=== PATIENT | male | born 1985 | race Caucasian/White ===

== ENCOUNTER → 2016-08-02 | Outpatient (REF) ==
[~2016-08-02] MED LIST: COLA100C3 PO; PERC5TAB6 PO
== END ==
LOC: M LAB 14:42
PROVIDERS: ATTEND Nurse Practitioner Adult Health
DX: Z02.1 Encounter for pre-employment examination (principal)

== ENCOUNTER 2017-12-21 08:14 | Emergency (ER) | payer OTHER | END 2017-12-21 09:10 | disposition home or self-care (01) | LOC: M ED 08:14 | DX: S63.613A Unspecified sprain of left middle finger, initial encounter (principal); W22.8XXA Striking against or struck by other objects, initial encounter; Y92.018 Other place in single-family (private) house as the place of occurrence of the external cause; Z79.899 Other long term (current) drug therapy; Z88.6 Allergy status to analgesic agent; Z88.8 Allergy status to other drugs, medicaments and biological substances; Z91.048 Other nonmedicinal substance allergy status | CPT/HCPCS: 73140 ==

== ENCOUNTER 2018-01-04 17:37 | Emergency (ER) | payer OTHER ==
[2018-01-04] MEDS ORDERED: NS 1,000 ML IV (18:15)
[2018-01-04] MEDS ORDERED: ACETAMINOPHEN 325 MG TAB PO (18:15)
[2018-01-04] MEDS ORDERED: PIPERACILLIN/TAZOBACTAM SOD 3.375 GM in D5W MINI-BAG PLUS 50 ML IV (18:30)
[2018-01-04 18:42] LABS: BASO % 0.5 % (0.0-1.0); EOS # 0.1 10^3/uL (0.0-0.50); EOS % 1.7 % (0.0-3.0); HEMOGLOBIN 13.6 g/dl (13.5-17.5); IMMATURE GRANULOCYTE % 1.2 % (0-3.0); LYMPH # 1.6 10^3/uL (1.5-4.5); LYMPH % 27.2 % (24.0-44.0); MEAN CORPUSCULAR HEMOGLOBIN 29.2 pg (27.0-33.0); MEAN CORPUSCULAR VOLUME 85.8 fl (80.0-96.0); MONO # 0.7 10^3/uL (0.0-0.8); MONO % 12.6 % (0.0-5.0); NEUTROPHILS # 3.3 10^3/uL (1.8-7.7); NEUTROPHILS % 56.8 % (36.0-66.0); PLATELET COUNT, AUTOMATED 291 10^3/uL (150-450); RED BLOOD COUNT 4.66 10^6/uL (4.30-6.10); RED CELL DISTRIBUTION WIDTH 12.3 % (11.5-14.5); WHITE BLOOD COUNT 5.8 10^3/uL (4.0-10.0)
[2018-01-04] MEDS ORDERED: ZOSYN 3.375 GM VIAL (J2543) As Ordered (18:52)
[2018-01-04] MEDS: DILUENT IV (19:06)
[2018-01-04] MEDS: NS IV (19:06)
[2018-01-04] MEDS: MORPHINE 4 MG/ML 1ML VIAL/SYRINGE (J2270) IV ×2 (19:07→20:38)
[2018-01-04] MEDS: PIPERACILLIN/TAZOBACTAM SOD 3.375 GM in D5W MINI-BAG PLUS 50 ML IV (19:10)
[2018-01-04 19:11] LABS: ALBUMIN 3.3 GM/DL (3.2-5.2); ALBUMIN/GLOBULIN RATIO 0.92 (1.00-1.93); ALKALINE PHOSPHATASE 56 U/L (45-117); ALT/SGPT 53 U/L (12-78); AMYLASE 31 U/L (25-115); ANION GAP 9 MEQ/L (8-16); AST/SGOT 22 U/L (7-37); BILIRUBIN,DIRECT 0.3 MG/DL (0.0-0.2); BLOOD UREA NITROGEN 15 MG/DL (7-18); C REACTIVE PROTEIN QUANTITATIV 6.58 MG/DL (0.00-0.30); CALCIUM LEVEL 8.3 MG/DL (8.5-10.1); CARBON DIOXIDE LEVEL 23 MEQ/L (21-32); CHLORIDE LEVEL 108 MEQ/L (98-107); CREATININE FOR GFR 1.03 MG/DL (0.70-1.30); GLOMERULAR FILTRATION RATE > 60.0 (>60); GLUCOSE, FASTING 90 MG/DL (70-100); POTASSIUM SERUM 3.7 MEQ/L (3.5-5.1); SODIUM LEVEL 140 MEQ/L (136-145); TOTAL PROTEIN 6.9 GM/DL (6.4-8.2)
[2018-01-04 19:11] LABS: LACTIC ACID SEPSIS PROTOCOL 1.5 MMOL/L (0.4-2.0)
[2018-01-04 19:12] LABS: KETONE, URINE AUTO RFX NEGATIVE (NEGATIVE); LEUKOCYTE ESTERASE UR AUTO RFX NEGATIVE (NEGATIVE); MUCUS, URINE RFX SMALL (NEGATIVE); NITRITE, URINE AUTO RFX NEGATIVE (NEGATIVE); RBC, URINE AUTO RFX 1 /HPF (0-3); SPECIFIC GRAVITY UR AUTO RFX 1.025 (1.002-1.035); SQUAM EPITHELIAL CELL UR AURFX 0 /HPF (0-6); WBC, URINE AUTO RFX 1 /HPF (0-3)
[2018-01-04 19:23] LABS: PARTIAL THROMBOPLASTIN TIME 31.6 SECONDS (25.4-37.6)
[2018-01-04] MEDS ORDERED: ISOVUE-370 76% 100ML VIAL (Q9967) As Ordered (19:31)
[2018-01-04 19:34] LABS: INR 1.03; PROTHROMBIN TIME 13.6 SECONDS (12.1-14.4)
[2018-01-04 19:45] LABS: CONTROL LINE MONO INT CTR LINE PRESENT; MONO SCRN NEGATIVE (NEGATIVE)
[2018-01-04 20:04] LABS: ERYTHROCYTE SEDIMENTATION RATE 52 mm/hr (0-15)
[2018-01-04 21:28] LABS: INFLUENZA A AMPLIFICATION NEGATIVE (NEGATIVE); INFLUENZA B AMPLIFICATION NEGATIVE (NEGATIVE)
== END 2018-01-04 22:21 | disposition home or self-care (01) ==
LOC: M ED 17:37
DX: B34.9 Viral infection, unspecified (principal); R50.9 Fever, unspecified
CPT/HCPCS: J2270

== ENCOUNTER → 2018-11-22 | Outpatient (CLI) | payer OTHER ==
[~2018-11-22] MED LIST changes: +3ML25MIS IM; +ADDE30CA3 PO; +ALLO100T PO; +BACL10TA2 PO; +BELS1TAB4 PO; +CLEO150C PO; -COLA100C3 PO; +COLA100C5 PO; +EPIN0.3I11; +KETO30IN5 IM; +LOPR1TAB7 PO; +OXYC10TA3 PO; +OXYC1SOL3 PO; +OXYC20TA40 PO; +PERC5TAB12 PO; -PERC5TAB6 PO; +ROSU40TA4 PO; +TOPA50TA8 PO; +VITA100054 PO; +ZANA4TAB PO; +ZOFR4TAB16 PO; +ZOMI5TAB12 PO
--- NOTE | 2018-11-22 20:37 | ECGEPIP ---
[facility] Test Date: 2018-11-22 Pat Name: CHUNG MAYERS Department: Room: - Gender: Male Slagger: DELISA : 1985 Requested By: Opal MORIN Order Number: [id number] Reading MD: Harry De Souza Measurements Intervals Mellen Rate: 62 P: 35 AL: 157 QRS: 34 QRSD: 94 T: 55 QT: 394 QTc: 402 Interpretive Statements SINUS RHYTHM WITH OCCASIONAL VENTRICULAR PREMATURE COMPLEXES No prior ECG available for comparison. Electronically Signed on 11-22-2018 20:37:03 EDT by Harry De Souza
== END ==
LOC: M EKG 11:06
PROVIDERS: ATTEND Nurse Practitioner Family
DX: I45.81 Long QT syndrome (principal)

== ENCOUNTER 2019-01-29 14:27 | Emergency (ER) | payer OTHER ==
[~2019-01-29] VITALS: Ht 188 cm; Wt 121.0 kg
[2019-01-29] MEDS ORDERED: LOPE1CAP5 (14:39)
[2019-01-29] MEDS ORDERED: ALLE25CA (14:39)
[2019-01-29] MEDS ORDERED: MYDA1CAP (14:39)
[2019-01-29] MEDS ORDERED: MORP30TASA (14:39)
[2019-01-29] MEDS ORDERED: LORA-674 (14:39)
[2019-01-29] MEDS ORDERED: DEXTROAMP-AMPHETAMIN (14:56)
[2019-01-29] MEDS ORDERED: MYDA1CAP PO (14:56)
[2019-01-29] MEDS ORDERED: COLC1TAB13 (14:56)
[2019-01-29] MEDS ORDERED: DEXI60CA2 (14:56)
[2019-01-29] MEDS ORDERED: CARV12.5 (14:56)
[2019-01-29 15:23] LABS: BASO % 0.7 % (0.0-1.0); EOS # 0.2 10^3/uL (0.0-0.5); EOS % 3.7 % (0.0-3.0); HEMATOCRIT 47.4 % (42.0-52.0); HEMOGLOBIN 16.3 g/dl (13.5-17.5); LYMPH # 1.7 10^3/uL (1.5-5.0); LYMPH % 40.1 % (24.0-44.0); MEAN CORPUSCULAR HGB CONC 34.4 g/dl (32.0-36.5); MEAN CORPUSCULAR VOLUME 84.3 fl (80.0-96.0); MONO # 0.4 10^3/uL (0.0-0.8); NEUTROPHILS % 46.3 % (36.0-66.0); PLATELET COUNT, AUTOMATED 264 10^3/uL (150-450); RED BLOOD COUNT 5.62 10^6/uL (4.30-6.10); WHITE BLOOD COUNT 4.3 10^3/uL (4.0-10.0)
--- NOTE | 2019-01-29 15:38 | REP ---
Right foot: Four views. History: Redness swelling and pain. Findings: Four views right foot demonstrate plantar and Achilles calcaneal spurring. There is an os naviculare. Overall mineralization pattern is normal. Minimal osteoarthritic spurring is seen at the first MTP joint. There is some mild soft tissue swelling at the first MTP joint. No erosive change is appreciated. Impression: First MTP joint spurring and soft tissue swelling consistent with arthropathy. No acute erosive change. Electronically Signed by Rosas Dutton MD 01/29/2019 03:30 P
[2019-01-29 15:46] LABS: IRON (FE) 109 UG/DL (65-175); MAGNESIUM LEVEL 1.7 MG/DL (1.8-2.4); URIC ACID 6.6 MG/DL (3.5-7.2)
[2019-01-29 16:17] LABS: C REACTIVE PROTEIN QUANTITATIV < 0.30 MG/DL (0.00-0.30)
[2019-01-29] MEDS ORDERED: methylPREDNISolone INJ 125 MG/2 ML VIAL (J2930) IV ONE (16:45)
[2019-01-29] MEDS ORDERED: KETOROLAC 60 MG/2 ML VIAL (J1885) IM ONE (16:45)
[2019-01-29] MEDS ORDERED: methylPREDNISolone INJ 125 MG/2 ML VIAL (J2930) IM ONE (17:00)
[2019-01-29] MEDS ORDERED: [UNRECOGNIZED DRUG - CODE] IM (17:34)
[2019-01-29] MEDS ORDERED: PRED20TA PO (17:34)
[2019-01-29 17:39] VITALS: BP 138/94
[2019-01-29 17:45] LABS: ERYTHROCYTE SEDIMENTATION RATE 2 mm/hr (0-15)
== END 2019-01-29 17:44 | disposition home or self-care (01) ==
LOC: M ED 14:27
DX: M19.071 Primary osteoarthritis, right ankle and foot (principal); M10.071 Idiopathic gout, right ankle and foot; G89.29 Other chronic pain; M54.9 Dorsalgia, unspecified; M51.9 Unspecified thoracic, thoracolumbar and lumbosacral intervertebral disc disorder; F90.9 Attention-deficit hyperactivity disorder, unspecified type; G47.00 Insomnia, unspecified; M25.774 Osteophyte, right foot; Z79.899 Other long term (current) drug therapy; Z88.8 Allergy status to other drugs, medicaments and biological substances
CPT/HCPCS: 73630; 80047; 83540; 83735; 84443; 84550; 85025; 85652; 86140; 96372; 99283; J1885; J2930

== ENCOUNTER → 2019-03-07 | Outpatient (CLI) | payer OTHER ==
[~2019-03-07] MED LIST changes: +ALLE25CA; +CARV12.5; +COLC1TAB13; +DEXI60CA2; +DEXTROAMP-AMPHETAMIN; +LOPE1CAP5; +LORA-674; +MORP30TASA; +MYDA1CAP; +MYDA1CAP PO; +PRED20TA PO; +[UNRECOGNIZED DRUG - CODE] IM
--- NOTE | 2019-03-10 03:35 | ECWPNPC ---
PATIENT NAME: CHUNG MAYERS : 1985 GENDER: MALE VISIT DATE: 03/07/2019 DISCHARGE DATE: 03/07/19817 VISIT LOCKED DATE TIME: PHYSICIAN: JAVIER SOTELO MD RESOURCE: JAVIER SOTELO MD REASON FOR APPOINTMENT 1. BACK/NECK HISTORY OF PRESENT ILLNESS NEW PATIENT CONSULT: WHEN DID YOUR PAIN FIRST START? . BRIEFLY DESCRIBE HOW YOUR PAIN STARTED? . HOW DOES YOUR PAIN CHANGE WITH TIME? . DOES YOUR PAIN AWAKEN YOU FROM SLEEP? . HOW MANY HOURS OF SLEEP DO YOU NORMALLY GET? . ANY DIAGNOSTIC TESTING? . FACILITY WHERE TESTS WERE DONE? ____. PAIN TREATMENT TREATMENT YES CANCER HAVE YOU EVER HAD ANY TYPE OF CANCER?NO NO. 33 YEAR OLD MALE PATIENT WITH A HISTORY OF CHRONIC NECK AND LOW BACK PAIN. THE PATIENT DESCRIBES THE PAIN ACHING, BURNING, SHARP, STABBING, DAILY, AND CONTINUOUS WITH A PAIN SCORE OF 3-8/10 DEPENDING ON PHYSICAL ACTIVITY. THE PATIENT STATES HIS PAIN BEGINS IN HIS NECK AND RADIATES DOWN MAINLY HIS RIGHT SHOULDER AND HE HAS PAIN IN HIS THORACIC AND LUMBAR BACK AREAS. THE PATIENT RECEIVED A DCS IMPLANT IN DECEMBER OF 2017, WHICH IS HELPING WITH SOME OF HIS NECK AND SHOULDER PAIN. 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 THE PATIENT SAYS HE IS MANAGING HIS PAIN WITH MEDICATION MANAGEMENT AND INTERVENTIONAL THERAPIES. THE PATIENT SAYS HE HAS TRIED ENTRY LEVEL ACCOUNT EXECUTIVE, ACUPUNCTURE, AND YOGA, BUT MASSAGE AND HEAT THERAPY HELPS WITH HIS PAIN THE MOST. PATIENT DENIES UNEXPLAINABLE WEIGHT LOSS, FEVER, CHILLS, NEW CHANGES ON HIS URINARY OR BOWEL CONTROL. PAIN SCREENING: PATIENT HAS A COMPLAINT OF ACUTE OR CHRONIC PAIN :YES FALL RISK SCREENING: SCREENING : NO FALLS IN THE PAST YEAR. LEE INVENTORY: QUESTIONNAIRE ASSESSEDTBD SCORE VALUE CALCULATED TBD CURRENT MEDICATIONS TAKING MS CONTIN 15 MG TABLET EXTENDED RELEASE 1 TABLET ORALLY EVERY 12 HRS TAKING MORPHINE SULFATE 15 MG TABLET 1 TABLET NEEDED ORALLY TWICE A DAY TAKING KETOROLAC TROMETHAMINE 30 MG/ML SOLUTION 0.5 ML NEEDED INJECTION EVERY 6 HRS TAKING TELMISARTAN 80 MG TABLET 1 TABLET ORALLY ONCE A DAY TAKING CARVEDILOL 12.5 MG TABLET 1 TABLET ORALLY TWICE A DAY TAKING ZOFRAN 4 MG TABLET 1 TABLET ORALLY EVERY 6 HOURS NEEDED TAKING ALLOPURINOL 300 MG TABLET 1 TABLET ORALLY ONCE A DAY TAKING DEXILANT 60 MG CAPSULE DELAYED RELEASE 1 CAPSULE ORALLY ONCE A DAY TAKING ZANAFLEX 4 MG TABLET 1 TABLET NEEDED ORALLY THREE TIMES A DAY TAKING MAY USE BACLOFEN 10 MG ORALLY TWICE A DAY NEEDED TAKING MYDAYIS 50 MG CAPSULE EXTENDED RELEASE 24 HOUR 1 CAPSULE IN THE MORNING ORALLY ONCE A DAY TAKING ADDERALL 10 MG TABLET 1 TABLET ORALLY EVERY AFTERNOON NEEDED TAKING BELSOMRA 20 MG TABLET 1 TABLET AT BEDTIME NEEDED ORALLY ONCE A DAY TAKING ZOMIG 2.5 MG TABLET 1 TABLET ORALLY ONCE A DAY, NOTES: UNSURE NEEDED TAKING TOPIRAMATE 50 MG TABLET 1 TABLET ORALLY TWICE A DAY TAKING VITAMIN D (ERGOCALCIFEROL) 1.25 MG (62647 UT) CAPSULE 1 CAPSULE ORALLY EVERY 2 WEEKS MEDICATION LIST REVIEWED AND RECONCILED WITH THE PATIENT PAST MEDICAL HISTORY HYPERTENSION HERNIATED DISC CERVIACAL,THORACIC GOUT ADHD SLEEP APNEA GERD BRACHIAL PLEXUS DISORDR SPINAL STER SPINAL STENOSIS INSOMNIA TACHY CARDIA ALLERGIES ADHESIVE ON ICY HOT PATCHES/LIDOCAIN: ANAPHYLAXIS PROVIGIL SURGICAL HISTORY DEVIATED SEPTUM 2012 C1-C2 2018 HARJEET RECTAL ABSCESS,FISTULOTOMY AND SPHICTECTOMY 2015 WISDOM TEETH 2010 FAMILY HISTORY FATHER: ALIVE MOTHER: ALIVE, DIAGNOSED WITH HYPERTENSION SIBLINGS: ALIVE DAUGHTER(S): ALIVE DAUGHTER IS AUTISTIC. SOCIAL HISTORY GENERAL: TOBACCO USE ARE YOU A:NONSMOKER NEVER SMOKER OTHERS AT HOME: SPOUSE, AND STEP SONS. EDUCATION LEVEL OF EDUCATION:NOT FINISHED COLLEGE DIET: REGULAR. LANGUAGE LANGUAGES SPOKEN:CROATIAN DOMESTIC VIOLENCE DO YOU FEEL SAFE IN YOUR ENVIRONMENT?YES RECREATIONAL DRUG USE DRUG USE?NO PT VERBALIZES NEVER ABUSED EXERCISE: WALKSCTIVE LIFESTYLE. LEARNING BARRIERS / SPECIAL NEEDS SPECIAL DEVICES?YES CPAP PAIN CLINIC PFS, CLERGY, PUBLIC HEALTH REFERRALS PFS REFERRAL NEEDED?NO CLERGY REFERRAL NEEDED?NO PUBLIC HEALTH REFERRAL NEEDED?NO WAS THE PROVIDER NOTIFIED OF ANY PERTINENT INFO?NO HAS THE PATIENT BEEN EDUCATED REGARDING HIS/HER PLAN OF CARE?YES HAS THE PATIENT BEEN EDUCATED REGARDING PAIN, THE RISK FOR PAIN, THE IMPORTANCE OF EFFECTIVE PAIN MANAGEMENT, AND THE PAIN ASSESSMENT PROCESS?YES CAFFEINE CAFFEINE USE?YES OCCASIONAL ADVANCE DIRECTIVE ADVANCE DIRECTIVE DISCUSSED WITH PATIENT:NO OFFERED PRINTED MATERIAL SIKH [id number] LUTHERAN MARITAL STATUS: . 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 HOSPITALIZATION/MAJOR DIAGNOSTIC PROCEDURE SURGERIES REVIEW OF SYSTEMS REVIEWED BY: PROVIDER: JAVIER SOTELO MD . CONSTITUTIONAL: ANY CHANGE IN YOUR MEDICAL CONDITION? NO . CHILLS NO . FEVER NO . INFECTION: DO YOU HAVE NEW INFECTIONS? NO . DO YOU HAVE HISTORY OF MRSA? NO . MUSCULOSKELETAL: ANY NEW PATTERNS OF PAIN OR NUMBNESS? YES . SYTEMIC LUPUS NO . GASTROENTEROLOGY: ANY NEW CHANGE IN BOWEL CONTROL? NO . BARRETTS ESOPHAGUS NO . CIRRHOSIS NO . HEPATITIS NO . LIVER FAILURE NO . ACID REFLUX NO . UNEXPLAINED WEIGHT LOSS NO . GENITOURINARY: ANY NEW CHANGE IN BLADDER CONTROL? NO . IS THERE A CHANCE YOU COULD BE ? NO . HEMATOLOGY/LYMPH: DO YOU TAKE ANY BLOOD THINNERS? (FOR EXAMPLE- COUMADIN, PLAVIX, AGGRENOX, PLATEL, PRADAXA, OR XARELTO) NO . WHEN WAS YOUR LAST DOSE? DATE: TIME: . LOW PLATELET COUNT NO . SICKLE CELL DISEASE NO . VON WILLIEBRANDS NO . FACTOR V LEIDEN NO . THALLASEMIA NO . ANEMIA NO . EASY BRUISING NO . NEUROLOGY: HAVE YOU FALLEN IN THE PAST 12 MONTHS? YES . ANY NEW EXTREMITY NUMBNESS OR WEAKNESS? NO . HEAD INJURY NO . DEMENTIA NO . CEREBRAL PALSY NO . MULTIPLE SCLEROSIS NO . DIZZINESS NO . HEADACHE NO . STROKES NO . VERTIGO NO . CARDIOLOGY: DO YOU HAVE A PACEMAKER OR DEFIBRILLATOR? NO . ANGINA NO . HEART ATTACK NO . HEART SURGERY NO . CONGESTIVE HEART FAILURE/FLUID OVERLOAD NO . CHEST PAIN NO . HIGH BLOOD PRESSURE NO . IRREGULAR HEART BEAT NO . RESPIRATORY: HAVE YOU BEEN SICK IN THE PAST WEEK? NO . FEVER NO . FLU LIKE SYMPTOMS? NO . CPAP NO . BYPAP NO . ASTHMA NO . EMPHYSEMA NO . CHRONIC LUNG DISEASES NO . SHORTNESS OF BREATH ON EXERTION NO . DO YOU USE ANY TYPE OF TOBACCO (SMOKE, SMOKELESS, CHEW)? NO . COUGH NO . SNORING NO . INTEGUMENTARY: DO YOU HAVE ANY RASHES OR OPEN SORES? NO . ALLERGIC/IMMUNO: ARE YOU ALLERGIC TO IV DYE? NO . ANY NEW ALLERGIES? NO . PSYCHIATRIC: DO YOU HAVE THOUGHTS OF HURTING YOURSELF OR SOMEONE ELSE? NO . ARE YOU ABUSED, NEGLECTED, OR IN AN UNSAFE ENVIRONMENT? NO . ENDOCRINOLOGY: ARE YOU DIABETIC? NO . THYROID DISORDER NO . OTHER: DO YOU NEED ANY PRESCRIPTIONS? POSSIBLY . IF YES, PLEASE LIST: ____ . ANY NEW PROBLEMS WITH YOUR MEDICATIONS? NO . WHEN DID YOU LAST EAT? ____ . WHEN DID YOU LAST DRINK? ____ . WHAT DID YOU LAST DRINK? ____ . NAME OF PERSON DRIVING YOU HOME? ____ . DO YOU HAVE ANY OTHER QUESTIONS OR CONCERNS YES - CONSIDERING HAVING YOU TAKE OVER MEDICATION MANAGEMENT . VITAL SIGNS WT 250 LBS, HT 72 IN, BMI 33.90 INDEX, BP 120/72 MM HG, HR 105 /MIN, RR 18 /MIN, TEMP 97.6 F, OXYGEN SAT % 98%, NA INITIALS SC 15:41, REVIEWED BY: KARTIK. EXAMINATION GENERAL EXAMINATION: PATIENT IS ALERT O X 3 AND COOPERATIVE. LUNGS CLEAR, TO AUSCULTATION. HEART: NO MURMURS OR GALLOPS; FACIAL CRANIAL NERVES ARE GROSSLY NORMAL. GOOD SYMMETRY OF FACIAL MUSCLE MOVEMENT. NORMAL VISUAL LOCK. PATIENT CAN ABDUCT UPPER EXTREMITIES WITH DIFFICULTIES TO SHOULDER LEVEL. PATIENT CAN EXTEND NECK ON LEFT SIDE TO 50 DEGREES WITH DISCOMFORT AND EXTEND TO 60 DEGREES ON THE RIGHT SIDE OF NECK. THERE IS PRESENCE OF TRIGGER POINTS WITH RESTRICTION OF MOVEMENT AND BANDS OF TISSUE. RESTRICTION OF MOVEMENT WITH NECK EXTENSION. RIGHT ARM IS A LITTLE WEAKER AT EXTENSION AND FLEXION. PATIENT IS LEFT HANDED. TENDERNESS WITH PRESSURE AND PAIN INCREASES OVER THE LUMBAR FACET JOINTS WITH EXTENSION AND LATERAL ROTATION OF THE NECK, ESPECIALLY ON THE RIGHT SIDE. 4-5 INCH SCAR PRESENT OVER NECK AREA. SCAR PRESENT OVER RIGHT SIDE OF THORACIC BACK FOR DCS IMPLANT. CT SCAN OF THE CERVICAL SPINE DONE ON 05/30/2018 SHOWS FACET ARTHROPATHY CHANGES AT MULTIPLE LEVELS. ASSESSMENTS MYALGIA, OTHER SITE - M79.18 (PRIMARY) SPONDYLOSIS WITHOUT MYELOPATHY OR RADICULOPATHY, CERVICAL REGION - M47.812 PAIN IN THORACIC SPINE - M54.6 OTHER CHRONIC PAIN - G89.29 STATUS POST DCS IMPLANT. TREATMENT MYALGIA, OTHER SITE CLINICAL NOTES: WE DISCUSSED SEVERAL ISSUES WITH MR. MAYERS'S PAIN MANAGEMENT CASE. REGARDING MEDICATION MANAGEMENT FOR HIS CHRONIC PAIN CONDITION, I DISCUSSED WITH THE PATIENT THAT IT WOULD BE APPROPRIATE TO EXPLORE [facility]'S PALLIATIVE CARE STAR PROGRAM. THE PATIENT IS INTERESTED SO I WILL REFER HIM TO THE STAR PROGRAM FOR MEDICATION MANAGEMENT. I DISCUSSED INTERVENTIONAL OPTIONS WITH THE PATIENT AND SUGGESTED WE TRY A CERVICAL FACET BLOCK AND CONSIDER TRIGGER POINT INJECTIONS UNDER X-RAY DUE TO HIS DCS IMPLANT. THE PATIENT IS INTERESTED IN TRYING TRIGGER POINT INJECTIONS FIRST. THEREFORE, DUE TO THE TRIGGER POINTS, BANDS OF TISSUE, AND RESTRICTION OF MOVEMENT, I WOULD LIKE TO MOVE FORWARD WITH A TRIGGER POINT INJECTION TO THE NECK AND SHOULDER UNDER X-RAY AT THIS TIME. WE DISCUSSED THE BENEFITS, RISKS, AND ALTERNATIVES OF THE INJECTION AND THE PATIENT WOULD LIKE TO PROCEED. I AM LOOKING FOR LONG LASTING PAIN RELIEF FROM THIS INJECTION FOR THE PATIENT. THE PATIENT WILL FOLLOW UP IN SEVERAL WEEKS AFTER HIS INJECTION TO SEE HOW IT IS HELPING WITH HIS PAIN. INSTRUCTIONS WERE GIVEN, QUESTIONS WERE ANSWERED, PATIENT REPORTS UNDERSTANDING AND AGREES WITH THE PLAN. I, BLAKE AMES, DOCUMENTED THE ABOVE INFORMATION ACTING A SCRIBE FOR DR. SOTELO. I HAVE REVIEWED THE ABOVE DOCUMENT, WRITTEN BY BLAKE SAUER AND I VERIFY THAT IT IS ACCURATE. DEAR DR. LEIF ARANGO: THANK YOU FOR YOUR KIND REFERRAL OF CHUNG MAYERS. IF YOU WANT TO DISCUSS HIS CASE WITH ME PLEASE CALL ME AT THE PAIN CENTER AT [phone]. SINCERELY, JAVIER SOTELO MD PAIN MEDICINE . PROCEDURE CODES FA211 ESTABILISHED PATIENT [facility] FACILITY CHARGE G8427 CURRENT MEDS W/DOSAGES DOCUMENTED G8730 PAIN ASSESS POS TOOL F/U PLAN DOC DISPOSITION & COMMUNICATION FOLLOW UP REASON: TPI UNDER X-RAY ELECTRONICALLY SIGNED BY JAVIER SOTELO MD, MD ON 03/09/2019 AT 01:15 PM EST DISCLAIMER : THIS IS A VISIT SUMMARY EXTRACTED FROM THE [employer] CHART. IT IS NOT A COPY OF THE [employer] PROGRESS NOTE. BIANCA
== END ==
LOC: M PAIN 15:30
PROVIDERS: ATTEND Anesthesiology
DX: M79.18 Myalgia, other site (principal); M47.812 Spondylosis without myelopathy or radiculopathy, cervical region; M54.6 Pain in thoracic spine; G89.29 Other chronic pain; I10 Essential (primary) hypertension; K21.9 Gastro-esophageal reflux disease without esophagitis; Z86.59 Personal history of other mental and behavioral disorders; G47.30 Sleep apnea, unspecified; G47.00 Insomnia, unspecified; Z88.8 Allergy status to other drugs, medicaments and biological substances; Z91.09 Other allergy status, other than to drugs and biological substances; Z79.891 Long term (current) use of opiate analgesic; Z79.899 Other long term (current) drug therapy

== ENCOUNTER → 2019-04-16 | Outpatient (CLI) | payer OTHER ==
[~2019-04-16] MED LIST changes: -ALLE25CA; +BUPIVACAINE HCL 0.25% 10 ML VIAL As Ordered ONE; +BUPIVACAINE HCL 0.25% 30 ML VIAL As Ordered ONE; +PHAR25CA; +TRIAMCINOLONE ACETONIDE SUSP 40 MG/ML VIAL (J3301) As Ordered ONE; +diazePAM 5 MG TAB As Ordered ONE; +oxyCODONE 5MG TAB As Ordered ONE
--- NOTE | 2019-04-16 19:33 | REP ---
C-ARM VIEWS CERVICAL SPINE REGION: CLINICAL HISTORY: Pain. Multiple C-ARM views of the cervical spine region are performed during injections by Dr. Mercer. A needle is seen at various levels along the cervical spine. 10 images are obtained. Fluoroscopy time is 9 seconds. Electronically Signed by Adam Bradley MD 04/18/2019 01:18 P
--- NOTE | 2019-04-28 05:15 | ECWPNPC ---
PATIENT NAME: CHUNG MAYERS : 1985 GENDER: MALE VISIT DATE: 04/16/2019 DISCHARGE DATE: 04/16/19 1705 VISIT LOCKED DATE TIME: PHYSICIAN: JAVIER SOTELO MD RESOURCE: JAVIER SOTELO MD REASON FOR APPOINTMENT 1. BILAT TPI UNDER X-RAY: CERVICAL, SHOULDER, THORACIC, LUMBAR HISTORY OF PRESENT ILLNESS HISTORY OF PRESENT ILLNESS: PAIN THE PATIENT DESCRIBES THE PAIN... FALL RISK SCREENING: SCREENING :NO FALLS REPORTED IN THE LAST YEAR CURRENT MEDICATIONS TAKING DEXILANT 60 MG CAPSULE DELAYED RELEASE 1 CAPSULE ORALLY ONCE A DAY TAKING MORPHINE SULFATE 15 MG TABLET 1 TABLET NEEDED ORALLY THREE TIMES DAILY NEEDED, NOTES: 04/16/2019 1045 TAKING KETOROLAC TROMETHAMINE 30 MG/ML SOLUTION 0.5 ML NEEDED INJECTION EVERY 6 HRS, NOTES: > 1 WEEK TAKING TELMISARTAN 80 MG TABLET 1 TABLET ORALLY ONCE A DAY, NOTES: 04/16/2019 0700 TAKING CARVEDILOL 12.5 MG TABLET 1 TABLET ORALLY TWICE A DAY, NOTES: 04/16/2019 0700 TAKING ZOFRAN 4 MG TABLET 1 TABLET ORALLY EVERY 6 HOURS NEEDED, NOTES: 04/16/2019 0700 TAKING ALLOPURINOL 300 MG TABLET 1 TABLET ORALLY ONCE A DAY, NOTES: 04/13/2019 0700 TAKING ZANAFLEX 4 MG TABLET 1 TABLET NEEDED ORALLY THREE TIMES A DAY, NOTES: 04/14/2019 TAKING MAY USE BACLOFEN 10 MG ORALLY TWICE A DAY NEEDED, NOTES: 04/15/2019 1200 TAKING MYDAYIS 50 MG CAPSULE EXTENDED RELEASE 24 HOUR 1 CAPSULE IN THE MORNING ORALLY ONCE A DAY, NOTES: 04/16/2019 0700 TAKING ADDERALL 10 MG TABLET 1 TABLET ORALLY EVERY AFTERNOON NEEDED, NOTES: 04/14/2019 0700 TAKING BELSOMRA 20 MG TABLET 1 TABLET AT BEDTIME NEEDED ORALLY ONCE A DAY, NOTES: > 2 WEEKS TAKING ZOMIG 2.5 MG TABLET 1 TABLET ORALLY ONCE A DAY, CAN REPEAT AFTER TWO HOURS, NOTES: 04/14/2019 1200 TAKING TOPIRAMATE 50 MG TABLET 1 TABLET ORALLY TWICE A DAY TAKING VITAMIN D (ERGOCALCIFEROL) 1.25 MG (54523 UT) CAPSULE 1 CAPSULE ORALLY EVERY 2 WEEKS TAKING ROSUVASTATIN CALCIUM 40 MG TABLET 1 TABLET ORALLY ONCE A DAY NOT-TAKING MS CONTIN 15 MG TABLET EXTENDED RELEASE 1 TABLET ORALLY EVERY 12 HRS MEDICATION LIST REVIEWED AND RECONCILED WITH THE PATIENT PAST MEDICAL HISTORY HYPERTENSION HERNIATED DISC CERVIACAL,THORACIC GOUT ADHD SLEEP APNEA GERD BRACHIAL PLEXUS DISORDR SPINAL STER SPINAL STENOSIS INSOMNIA TACHY CARDIA HIATAL HERNIA GASTROPARESIS RADICULOPATHY DORSAL COLUMN STIMULATOR ALLERGIES ADHESIVE ON ICY HOT PATCHES/LIDOCAIN: ANAPHYLAXIS PROVIGIL: UNKNOWN SURGICAL HISTORY DEVIATED SEPTUM 2011 C1-C2 DORSAL COLUMN STIMULATOR 2018 HARJEET RECTAL ABSCESS,FISTULOTOMY AND SPHICTEROTOMY 2015 WISDOM TEETH 2010 FAMILY HISTORY FATHER: ALIVE MOTHER: ALIVE, DIAGNOSED WITH HYPERTENSION SIBLINGS: ALIVE DAUGHTER(S): ALIVE 1 BROTHER(S) . 1DAUGHTER(S) - HEALTHY. DAUGHTER IS AUTISTIC, ADHDDAD HAS CARDIAC ARRHYTHMIAS ? ABLATIONBROTHER WITH CROHN'S. SOCIAL HISTORY GENERAL: TOBACCO USE ARE YOU A:NONSMOKER NEVER SMOKER OTHERS AT HOME: SPOUSE, AND STEP SONS. EDUCATION LEVEL OF EDUCATION:NOT FINISHED COLLEGE DIET: REGULAR. LANGUAGE LANGUAGES SPOKEN:YORUBA DOMESTIC VIOLENCE DO YOU FEEL SAFE IN YOUR ENVIRONMENT?YES RECREATIONAL DRUG USE DRUG USE?NO PT VERBALIZES NEVER ABUSED EXERCISE: WALKSCTIVE LIFESTYLE. 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 NEEDED?NO PAIN CLINIC PFS, CLERGY, PUBLIC HEALTH REFERRALS PFS REFERRAL NEEDED?NO CLERGY REFERRAL NEEDED?NO PUBLIC HEALTH REFERRAL NEEDED?NO WAS THE PROVIDER NOTIFIED OF ANY PERTINENT INFO?NO HAS THE PATIENT BEEN EDUCATED REGARDING HIS/HER PLAN OF CARE?YES HAS THE PATIENT BEEN EDUCATED REGARDING PAIN, THE RISK FOR PAIN, THE IMPORTANCE OF EFFECTIVE PAIN MANAGEMENT, AND THE PAIN ASSESSMENT PROCESS?YES LATEX QUESTIONNAIRE LATEX ALLERGY : HAVE YOU EVER DEVELOPED ANY TYPE OF REACTION AFTER HANDLING LATEX PRODUCTS SUCH RUBBER GLOVES, CONDOMS, DIAPHRAGMS, BALLOONS, SOCKS, OR UNDERWEAR?NO LATEX ALLERGY : HAVE YOU EVER DEVELOPED ANY TYPE OF REACTION DURING OR AFTER DENTAL APPOINTMENT, VAGINAL/RECTAL EXAMINATION, SURGICAL PROCEDURE, OR ANY OTHER EXPOSURE?NO LATEX RISK : HAVE YOU EVER HAD ANY DIFFICULTY BREATHING OR HIVES AFTER EATING OR HANDLING ANY FRUITS, OR VEGETABLES; SUCH KIWI, BANANAS, STONE FRUITS, OR CHESTNUTSNO LATEX RISK : DO YOU HAVE A PREVIOUS PERSONAL HISTORY OF MORE THAN NINE SURGERIES, SPINA BIFIDA, OR REPEATED CATHERIZATIONS? NO LATEX RISK : ARE YOU FREQUENTLY EXPOSED TO LATEX PRODUCTS IN YOUR OCCUPATION?NO DATE ASKED : 04/13/2019 CAFFEINE CAFFEINE USE?YES OCCASIONAL ADVANCE DIRECTIVE ADVANCE DIRECTIVE DISCUSSED WITH PATIENT:NO OFFERED PRINTED MATERIAL CATHOLIC [id number] ORIENTAL ORTHODOX MARITAL STATUS: . 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 PRE PROCEDURE PHONE SCREENING 04/13/2019 LAS. HOSPITALIZATION/MAJOR DIAGNOSTIC PROCEDURE SURGERIES REVIEW OF SYSTEMS REVIEWED BY: PROVIDER: . CONSTITUTIONAL: ANY CHANGE IN YOUR MEDICAL CONDITION? NO . CHILLS NO . FEVER NO . INFECTION: DO YOU HAVE NEW INFECTIONS? NO . DO YOU HAVE HISTORY OF MRSA? NO . MUSCULOSKELETAL: ANY NEW PATTERNS OF PAIN OR NUMBNESS? NO . GASTROENTEROLOGY: ANY NEW CHANGE IN BOWEL CONTROL? NO . GENITOURINARY: ANY NEW CHANGE IN BLADDER CONTROL? NO . IS THERE A CHANCE YOU COULD BE ? NO . HEMATOLOGY/LYMPH: DO YOU TAKE ANY BLOOD THINNERS? (FOR EXAMPLE- COUMADIN, PLAVIX, AGGRENOX, PLATEL, PRADAXA, OR XARELTO) NO . WHEN WAS YOUR LAST DOSE? DATE: TIME: . NEUROLOGY: HAVE YOU FALLEN IN THE PAST 12 MONTHS? YES PT REPORTS FALL LAST MAY . ANY NEW EXTREMITY NUMBNESS OR WEAKNESS? YES PT REPORTS NEW WEAKNESS AND EMERGENCY MAN STRENGTH RIGHT HAND/ARM . CARDIOLOGY: DO YOU HAVE A PACEMAKER OR DEFIBRILLATOR? YES PT HAS DORSAL COLUMN STIMULATOR . RESPIRATORY: HAVE YOU BEEN SICK IN THE PAST WEEK? NO . FEVER NO . FLU LIKE SYMPTOMS? NO . COUGH NO . INTEGUMENTARY: DO YOU HAVE ANY RASHES OR OPEN SORES? NO . ALLERGIC/IMMUNO: ARE YOU ALLERGIC TO IV DYE? NO . ANY NEW ALLERGIES? NO . PSYCHIATRIC: DO YOU HAVE THOUGHTS OF HURTING YOURSELF OR SOMEONE ELSE? NO . ARE YOU ABUSED, NEGLECTED, OR IN AN UNSAFE ENVIRONMENT? NO . ENDOCRINOLOGY: ARE YOU DIABETIC? NO . OTHER: DO YOU NEED ANY PRESCRIPTIONS? NO . IF YES, PLEASE LIST: ____ . ANY NEW PROBLEMS WITH YOUR MEDICATIONS? NO . WHEN DID YOU LAST EAT? ____04/16/2019 0200 . WHEN DID YOU LAST DRINK? ____04/16/2019 1030 . WHAT DID YOU LAST DRINK? ____WATER . NAME OF PERSON DRIVING YOU HOME? ____ALICIA . DO YOU HAVE ANY OTHER QUESTIONS OR CONCERNS NO . VITAL SIGNS WT 254 LBS, HT 72 IN, BMI 34.44 INDEX, BP 110/57 MM HG, HR 72 /MIN, RR 18 /MIN, TEMP 97.0 F, OXYGEN SAT % 98%, NA INITIALS AW 1433. ASSESSMENTS MYALGIA, OTHER SITE - M79.18 (PRIMARY) TREATMENT MYALGIA, OTHER SITE [facility] FLUORO GUIDANCE (PAIN) PROCEDURES PN TRIGGER POINT INJECTION WITH STEROIDS PRE PROCEDURE DIAGNOSIS 1. MYALGIA 2. PAIN AT BILATERAL NECK AREA, BILATERAL SHOULDER AREA, BILATERAL THORACIC AREA, BILATERAL LOW BACK AREA POST PROCEDURE DIAGNOSIS 1. MYALGIA 2. PAIN AT BILATERAL NECK AREA, BILATERAL SHOULDER AREA, BILATERAL THORACIC AREA, BILATERAL LOW BACK AREA PROCEDURE TRIGGER POINT INJECTION AT THE RIGHT AND LEFT NECK AREA, RIGHT AND LEFT SHOULDER AREA, RIGHT AND LEFT THORACIC AREA, RIGHT AND LEFT LOW BACK AREA UNDER FLUOROSCOPIC GUIDANCE SURGEON DR. JAVIER SOTELO BODY MAN NONE ANESTHESIA LOCAL PRE PROCEDURE NOTE THE PATIENT HAS A HISTORY OF CHRONIC PAIN AT THE RIGHT AND LEFT NECK AREA, RIGHT AND LEFT SHOULDER AREA, RIGHT AND LEFT THORACIC AREA, AND RIGHT AND LEFT LOW BACK AREA. I EVALUATED THE PATIENT AND REVIEWED THE CHART. THERE IS EVIDENCE OF BANDS OF TISSUE WITH RESTRICTION OF MOVEMENT AND PRESENCE OF TRIGGER POINTS AT THE AFFECTED AREA. I WENT OVER THE RISKS, ALTERNATIVES, AND BENEFITS ASSOCIATED WITH THIS PROCEDURE. THE PATIENT WOULD LIKE TO PROCEED AND GAVE CONSENT TO PERFORM THE PROCEDURE. THE PATIENT DENIES UNEXPLAINABLE WEIGHT LOSS, FEVER, CHILLS, OR NEW CHANGES IN URINARY OR BOWEL CONTROL DESCRIPTION OF PROCEDURE THE PATIENT WAS BROUGHT TO THE PROCEDURE ROOM AND PLACED IN THE SITTING POSITION. THE AREA WAS CLEANED WITH ALCOHOL. THE PROCEDURE WAS DONE USING ASEPTIC STERILE TECHNIQUE. I CHECKED LATERALITY AND THE LEVEL WHERE THE PROCEDURE WAS GOING TO BE PERFORMED WITH THE PATIENT AND THE SUPPORTING STAFF AT THE MOMENT OF THE TIMEOUT IN THE PROCEDURE ROOM. UNDER FLUOROSCOPIC GUIDANCE AND USING A 25-GAUGE NEEDLE, TRIGGER POINTS WERE INJECTED AT THE RIGHT AND LEFT NECK AREA, RIGHT AND LEFT SHOULDER AREA, RIGHT AND LEFT THORACIC AREA, AND RIGHT AND LEFT LOW BACK AREA WITH A TOTAL OF 40 ML OF BUPIVACAINE 0.25% AND KENALOG 40 MG. THERE WAS NO EVIDENCE OF BLOOD, PARESTHESIA OR CEREBROSPINAL FLUID DURING THE PROCEDURE. THERE WAS NO EVIDENCE OF TOUCHING THE SPINAL COLUMN STIMULATOR UNDER FLUOROSCOPY. THE PATIENT WAS SENT TO THE RECOVERY ROOM. THE PATIENT WAS MOVING THE EXTREMITIES AND DOING WELL. THERE WAS NO COMPLICATION DURING THE PROCEDURE. FLUOROSCOPY TIME WAS 9 SECONDS. POST PROCEDURE NOTE THE PATIENT WILL BE SEEN IN A FOLLOWUP IN THE NEXT FEW WEEKS. I AM LOOKING FOR LONG-LASTING PAIN RELIEF WITH THIS INTERVENTION. IN THE FUTURE, WE WILL CONSIDER A THERAPEUTIC L4-L5 FACET BLOCK. INSTRUCTIONS WERE GIVEN, QUESTIONS WERE ANSWERED, AND THE PATIENT EXPRESSED UNDERSTANDING AND AGREES WITH THE PLAN. I, MASOUD DESAI, DOCUMENTED THE ABOVE INFORMATION ACTING A SCRIBE FOR DR. SOTELO. I HAVE REVIEWED THE ABOVE DOCUMENT, WRITTEN BY CAMACHO VOSS, AND I VERIFY THAT IT IS ACCURATE PROCEDURE CODES 42121 INJECT TRIGGER POINTS, =/> 3 [id number] RADXPS IN END [id number] PXD 00304 NEEDLE LOCALIZATION BY MILAGROS, MODIFIERS: 26 DISPOSITION & COMMUNICATION FOLLOW UP 3 WEEKS ELECTRONICALLY SIGNED BY JAVIER SOTELO MD, MD ON 04/27/2019 AT 03:16 PM EST DISCLAIMER : THIS IS A VISIT SUMMARY EXTRACTED FROM THE [employer] CHART. IT IS NOT A COPY OF THE [employer] PROGRESS NOTE. MTDD
== END ==
LOC: M PAIN 14:30
PROVIDERS: ATTEND Anesthesiology
DX: M79.18 Myalgia, other site (principal); I10 Essential (primary) hypertension; Z86.59 Personal history of other mental and behavioral disorders; K21.9 Gastro-esophageal reflux disease without esophagitis; G47.00 Insomnia, unspecified; Z88.8 Allergy status to other drugs, medicaments and biological substances; Z91.09 Other allergy status, other than to drugs and biological substances; Z79.899 Other long term (current) drug therapy
CPT/HCPCS: 20553; 77002; J3301

== ENCOUNTER → 2019-04-30 | Outpatient (CLI) | payer OTHER ==
[~2019-04-30] MED LIST changes: -BUPIVACAINE HCL 0.25% 10 ML VIAL As Ordered ONE; -BUPIVACAINE HCL 0.25% 30 ML VIAL As Ordered ONE; -TRIAMCINOLONE ACETONIDE SUSP 40 MG/ML VIAL (J3301) As Ordered ONE; -diazePAM 5 MG TAB As Ordered ONE; -oxyCODONE 5MG TAB As Ordered ONE
--- NOTE | 2019-05-15 04:28 | ECWPNPC ---
PATIENT NAME: CHUNG MAYERS : 1985 GENDER: MALE VISIT DATE: 04/30/2019 DISCHARGE DATE: 04/30/19 1101 VISIT LOCKED DATE TIME: PHYSICIAN: DIDIER HARRISON RESOURCE: DIDIER HARRISON REASON FOR APPOINTMENT 1. POST TPI HISTORY OF PRESENT ILLNESS HISTORY OF PRESENT ILLNESS: HERE FOR POST PROCEDURE FOLLOW-UP. HAD TRIGGER POINT INJECTIONS ON 04/16/2019. REPORTING IMPROVEMENT IN PAIN POST PROCEDURE. USES DORSAL COLUMN STIMULATOR FOR CHRONIC NECK AND LOW BACK PAIN. THIS IS HELPFUL. HE WAS CRAWLING UNDERNEATH HIS HOUSE AND AGGRAVATED PAIN A FEW DAYS AGO. RATING PAIN LEVEL A 2-8/10 VAS. THIS IS AN INJURY WHEN HE WAS IN TRA[employer]ING IN [employer] IN 2008 WHEN A 200+ POUND FEMALE FELL FROM 10 FEET ONTO HIS PRONE BODY. PAIN THE PATIENT DESCRIBES THE PAIN... FALL RISK SCREENING: SCREENING :NO FALLS REPORTED IN THE LAST YEAR CURRENT MEDICATIONS TAKING DEXILANT 60 MG CAPSULE DELAYED RELEASE 1 CAPSULE ORALLY ONCE A DAY PRN TAKING MORPHINE SULFATE 15 MG TABLET 1 TABLET NEEDED ORALLY THREE TIMES DAILY NEEDED TAKING KETOROLAC TROMETHAMINE 30 MG/ML SOLUTION 0.5 ML NEEDED INJECTION EVERY 6 HRS TAKING TELMISARTAN 80 MG TABLET 1 TABLET ORALLY ONCE A DAY TAKING CARVEDILOL 12.5 MG TABLET 1 TABLET ORALLY TWICE A DAY TAKING ZOFRAN 4 MG TABLET 1 TABLET ORALLY EVERY 6 HOURS NEEDED TAKING ALLOPURINOL 300 MG TABLET 1 TABLET ORALLY ONCE A DAY TAKING ZANAFLEX 4 MG TABLET 1 TABLET NEEDED ORALLY THREE TIMES A DAY TAKING MAY USE BACLOFEN 10 MG ORALLY TWICE A DAY NEEDED TAKING ADDERALL 10 MG TABLET 1 TABLET ORALLY EVERY AFTERNOON NEEDED TAKING BELSOMRA 20 MG TABLET 1 TABLET AT BEDTIME NEEDED ORALLY ONCE A DAY TAKING ZOMIG 2.5 MG TABLET 1 TABLET ORALLY ONCE A DAY, CAN REPEAT AFTER TWO HOURS TAKING TOPIRAMATE 50 MG TABLET 1 TABLET ORALLY TWICE A DAY TAKING VITAMIN D (ERGOCALCIFEROL) 1.25 MG (64507 UT) CAPSULE 1 CAPSULE ORALLY EVERY 2 WEEKS TAKING ROSUVASTATIN CALCIUM 40 MG TABLET 1 TABLET ORALLY ONCE A DAY TAKING FENTANYL 25 MCG/HR PATCH 72 HOUR 1 PATCH TO SKIN TRANSDERMAL TAKING ADZENYS XR-ODT 3.1 MG TABLET EXTENDED RELEASE DISINTEGRATING 1 TABLET IN THE MORNING ORALLY ONCE A DAY NOT-TAKING MYDAYIS 50 MG CAPSULE EXTENDED RELEASE 24 HOUR 1 CAPSULE IN THE MORNING ORALLY ONCE A DAY NOT-TAKING MS CONTIN 15 MG TABLET EXTENDED RELEASE 1 TABLET ORALLY EVERY 12 HRS MEDICATION LIST REVIEWED AND RECONCILED WITH THE PATIENT PAST MEDICAL HISTORY HYPERTENSION HERNIATED DISC CERVIACAL,THORACIC GOUT ADHD SLEEP APNEA GERD BRACHIAL PLEXUS DISORDR SPINAL STER SPINAL STENOSIS INSOMNIA TACHY CARDIA HIATAL HERNIA GASTROPARESIS RADICULOPATHY DORSAL COLUMN STIMULATOR ALLERGIES ADHESIVE ON ICY HOT PATCHES/LIDOCAIN: ANAPHYLAXIS PROVIGIL: UNKNOWN SURGICAL HISTORY DEVIATED SEPTUM 2011 C1-C2 DORSAL COLUMN STIMULATOR 2018 HARJEET RECTAL ABSCESS,FISTULOTOMY AND SPHICTEROTOMY 2015 WISDOM TEETH 2010 FAMILY HISTORY FATHER: ALIVE MOTHER: ALIVE, DIAGNOSED WITH HYPERTENSION SIBLINGS: ALIVE DAUGHTER(S): ALIVE 1 BROTHER(S) . 1DAUGHTER(S) - HEALTHY. DAUGHTER IS AUTISTIC, ADHDDAD HAS CARDIAC ARRHYTHMIAS ? ABLATIONBROTHER WITH CROHN'S. SOCIAL HISTORY GENERAL: TOBACCO USE ARE YOU A:NONSMOKER NEVER SMOKER OTHERS AT HOME: SPOUSE, AND STEP SONS. EDUCATION LEVEL OF EDUCATION:NOT FINISHED COLLEGE DIET: REGULAR. LANGUAGE LANGUAGES SPOKEN:PERSIAN DOMESTIC VIOLENCE DO YOU FEEL SAFE IN YOUR ENVIRONMENT?YES RECREATIONAL DRUG USE DRUG USE?NO PT VERBALIZES NEVER ABUSED EXERCISE: WALKSCTIVE LIFESTYLE. LEARNING BARRIERS / SPECIAL NEEDS CHANGE FROM LAST VISIT?NO BARRIERS TO LEARNING?NO HEARING IMPAIRED?NO VISION IMPAIRED?NO COGNITIVELY IMPAIRED?NO READINESS TO LEARN?YES LEARNING PREFERENCES?NO LEARNING CAPABILITIES PRESENT?YES EMOTIONAL BARRIERS?NO ADHD SPECIAL DEVICES?YES CPAP DIRECTOR GLOBAL SALES NEEDED?NO PAIN CLINIC PFS, CLERGY, PUBLIC HEALTH REFERRALS PFS REFERRAL NEEDED?NO CLERGY REFERRAL NEEDED?NO PUBLIC HEALTH REFERRAL NEEDED?NO WAS THE PROVIDER NOTIFIED OF ANY PERTINENT INFO?NO HAS THE PATIENT BEEN EDUCATED REGARDING HIS/HER PLAN OF CARE?YES HAS THE PATIENT BEEN EDUCATED REGARDING PAIN, THE RISK FOR PAIN, THE IMPORTANCE OF EFFECTIVE PAIN MANAGEMENT, AND THE PAIN ASSESSMENT PROCESS?YES LATEX QUESTIONNAIRE LATEX ALLERGY : HAVE YOU EVER DEVELOPED ANY TYPE OF REACTION AFTER HANDLING LATEX PRODUCTS SUCH RUBBER GLOVES, CONDOMS, DIAPHRAGMS, BALLOONS, SOCKS, OR UNDERWEAR?NO LATEX ALLERGY : HAVE YOU EVER DEVELOPED ANY TYPE OF REACTION DURING OR AFTER DENTAL APPOINTMENT, VAGINAL/RECTAL EXAMINATION, SURGICAL PROCEDURE, OR ANY OTHER EXPOSURE?NO LATEX RISK : HAVE YOU EVER HAD ANY DIFFICULTY BREATHING OR HIVES AFTER EATING OR HANDLING ANY FRUITS, OR VEGETABLES; SUCH KIWI, BANANAS, STONE FRUITS, OR CHESTNUTSNO LATEX RISK : DO YOU HAVE A PREVIOUS PERSONAL HISTORY OF MORE THAN NINE SURGERIES, SPINA BIFIDA, OR REPEATED CATHERIZATIONS? NO LATEX RISK : ARE YOU FREQUENTLY EXPOSED TO LATEX PRODUCTS IN YOUR OCCUPATION?NO DATE ASKED : 04/13/2019 CAFFEINE CAFFEINE USE?YES OCCASIONAL ADVANCE DIRECTIVE ADVANCE DIRECTIVE DISCUSSED WITH PATIENT:NO 04/30/2019 PATIENT HAS NO ADVANCED DIRECTIVES AND DECLINES INFORMATION ON HCP AT THIS TIME. JS CONFUCIANISM [id number] JEWISH MARITAL STATUS: . 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 PRE PROCEDURE PHONE SCREENING 04/13/2019 LASREVIEWED WITH PATIENT 04/30/2019 1026 JS. HOSPITALIZATION/MAJOR DIAGNOSTIC PROCEDURE SURGERIES REVIEW OF SYSTEMS REVIEWED BY: PROVIDER: DIDIER MORIN . CONSTITUTIONAL: ANY CHANGE IN YOUR MEDICAL CONDITION? NO . CHILLS NO . FEVER NO . INFECTION: DO YOU HAVE NEW INFECTIONS? NO . DO YOU HAVE HISTORY OF MRSA? NO . MUSCULOSKELETAL: ANY NEW PATTERNS OF PAIN OR NUMBNESS? YES, STATES PAIN IMPROVED AFTER TRIGGER POINT INJECTIONS UNTIL TUESDAY - HAD TO WORK ON FROZEN PIPES UNDER HOUSE FOR HOURS . GASTROENTEROLOGY: ANY NEW CHANGE IN BOWEL CONTROL? NO . GENITOURINARY: ANY NEW CHANGE IN BLADDER CONTROL? NO . IS THERE A CHANCE YOU COULD BE ? NO . HEMATOLOGY/LYMPH: DO YOU TAKE ANY BLOOD THINNERS? (FOR EXAMPLE- COUMADIN, PLAVIX, AGGRENOX, PLATEL, PRADAXA, OR XARELTO) NO . WHEN WAS YOUR LAST DOSE? DATE: TIME: . NEUROLOGY: HAVE YOU FALLEN IN THE PAST 12 MONTHS? YES, STATES FALL IN MAY OF LAST YEAR, DISCUSSED AT PREVIOUS VISIT . ANY NEW EXTREMITY NUMBNESS OR WEAKNESS? NO . CARDIOLOGY: DO YOU HAVE A PACEMAKER OR DEFIBRILLATOR? NO, DORSAL COLUMN STIMULATOR . RESPIRATORY: HAVE YOU BEEN SICK IN THE PAST WEEK? NO . FEVER NO . FLU LIKE SYMPTOMS? NO . COUGH NO . INTEGUMENTARY: DO YOU HAVE ANY RASHES OR OPEN SORES? NO . ALLERGIC/IMMUNO: ARE YOU ALLERGIC TO IV DYE? NO . ANY NEW ALLERGIES? NO . PSYCHIATRIC: DO YOU HAVE THOUGHTS OF HURTING YOURSELF OR SOMEONE ELSE? NO . ARE YOU ABUSED, NEGLECTED, OR IN AN UNSAFE ENVIRONMENT? NO . ENDOCRINOLOGY: ARE YOU DIABETIC? NO . OTHER: DO YOU NEED ANY PRESCRIPTIONS? NO . IF YES, PLEASE LIST: ____ . ANY NEW PROBLEMS WITH YOUR MEDICATIONS? NO . WHEN DID YOU LAST EAT? ____ . WHEN DID YOU LAST DRINK? ____ . WHAT DID YOU LAST DRINK? ____ . NAME OF PERSON DRIVING YOU HOME? ____ . DO YOU HAVE ANY OTHER QUESTIONS OR CONCERNS NO . VITAL SIGNS WT 255.6 LBS, HT 72 IN, BMI 34.66 INDEX, BP 107/58 MM HG, HR 101 /MIN, RR 18 /MIN, TEMP 97.1 F, OXYGEN SAT % 99%, SAFE IN ENV? (Y/N) YES, NA INITIALS AW 1019, REVIEWED BY: TEJAS. EXAMINATION GENERAL EXAMINATION: GENERAL AWAKE,ALERT ,PLEAASANT . PSYCH AFFECT NORMAL . LUNGS: LUNG LOCK ARE CLEAR TO AUSCULTATION BILATERALLY. GOOD MOVEMENT OF AIR . HEART: S1, S2 IN A REGULAR RATE AND RHYTHM. NO SIGNIFICANT MURMURS, RUBS OR GALLOPS NOTED . CERVICAL: TRIGGER POINTS: CERVICAL AND TRAPEZIUS BILAT..PAIN IS AGGREVATED WITH ROJM NECK WELL HEALED SURGICAL SCAR NECK NOTED. ASSESSMENTS MYALGIA, OTHER SITE - M79.18 (PRIMARY) TREATMENT MYALGIA, OTHER SITE NOTES: TRIGGER POINT INJECTIONS WITH XRAY NECK, SHOULDERS. PREVENTIVE MEDICINE PAIN CLINIC TEACHING: PROCEDURE TEACHING REVIEWED INFORMATION ON TRIGGER POINT INJECTION PROCEDURE WITH PATIENT. ALSO REVIEWED PRE-PROCEDURE INSTRUCTIONS. PATIENT VERBALIZED AN UNDERSTANDING. NAT CORONADO 04/30/2019 2:40:41 PM > . PROCEDURE CODES FA211 ESTABILISHED PATIENT [facility] F[facility] CHARGE DISPOSITION & COMMUNICATION FOLLOW UP POST (REASON: TRIGGER POINT INJECTIONS WITH XRAY NECK, SHOULDERS) ELECTRONICALLY SIGNED BY MIKEL OLIVA ON 05/14/2019 AT 04:24 PM EST DISCLAIMER : THIS IS A VISIT SUMMARY EXTRACTED FROM THE [employer] CHART. IT IS NOT A COPY OF THE [employer] PROGRESS NOTE. BIANCA
== END ==
LOC: M PAIN 09:45
PROVIDERS: ATTEND Nurse Practitioner Family
DX: M79.18 Myalgia, other site (principal); I10 Essential (primary) hypertension; Z79.891 Long term (current) use of opiate analgesic; Z79.899 Other long term (current) drug therapy; Z88.8 Allergy status to other drugs, medicaments and biological substances; Z91.048 Other nonmedicinal substance allergy status

== ENCOUNTER → 2019-06-06 | Outpatient (CLI) | payer OTHER ==
[~2019-06-06] MED LIST changes: +BUPIVACAINE HCL 0.25% 30 ML VIAL As Ordered ONE; +TRIAMCINOLONE ACETONIDE SUSP 40 MG/ML VIAL (J3301) As Ordered ONE; +[UNRECOGNIZED DRUG - CODE] IM; -[UNRECOGNIZED DRUG - CODE] IM
--- NOTE | 2019-06-06 13:26 | REP ---
C-ARM VIEWS CERVICAL SPINE REGION: Multiple C-arm views of the cervical spine region performed during injection by Dr. Mercer. [place] are seen in various positions along the cervical region. 6 seconds of fluoroscopy time utilized. Electronically Signed by Adam Bradley MD 06/06/2019 03:20 P
--- NOTE | 2019-06-15 03:53 | ECWPNPC ---
PATIENT NAME: CHUNG MAYERS : 1985 GENDER: MALE VISIT DATE: 06/06/2019 DISCHARGE DATE: 06/06/19 1301 VISIT LOCKED DATE TIME: PHYSICIAN: JAVIER SOTELO MD RESOURCE: JAVIER SOTELO MD REASON FOR APPOINTMENT 1. TPI WITH XRAY OF NECK HISTORY OF PRESENT ILLNESS HISTORY OF PRESENT ILLNESS: PAIN THE PATIENT DESCRIBES THE PAIN... FALL RISK SCREENING: SCREENING :NO FALLS REPORTED IN THE LAST YEAR CURRENT MEDICATIONS TAKING KETOROLAC TROMETHAMINE 30 MG/ML SOLUTION 0.5 ML NEEDED INJECTION EVERY 6 HRS, NOTES: NONE LATELY TAKING TELMISARTAN 80 MG TABLET 1 TABLET ORALLY ONCE A DAY, NOTES: 06/06/19 TAKING CARVEDILOL 12.5 MG TABLET 1 TABLET ORALLY TWICE A DAY, NOTES: 06/06/19 TAKING ZOFRAN 4 MG TABLET 1 TABLET ORALLY EVERY 6 HOURS NEEDED, NOTES: 06/04/19 TAKING ALLOPURINOL 300 MG TABLET 1 TABLET ORALLY ONCE A DAY, NOTES: LAST WEEK TAKING ZANAFLEX 4 MG TABLET 1 TABLET NEEDED ORALLY THREE TIMES A DAY, NOTES: 06/05/19 TAKING MAY USE BACLOFEN 10 MG ORALLY TWICE A DAY NEEDED, NOTES: 06/04/19 TAKING ADDERALL 10 MG TABLET 1 TABLET ORALLY EVERY AFTERNOON NEEDED, NOTES: 06/05/19 TAKING BELSOMRA 20 MG TABLET 1 TABLET AT BEDTIME NEEDED ORALLY ONCE A DAY, NOTES: LAST WEEK TAKING ZOMIG 2.5 MG TABLET 1 TABLET ORALLY ONCE A DAY, CAN REPEAT AFTER TWO HOURS, NOTES: 06/05/19 TAKING TOPIRAMATE 50 MG TABLET 1 TABLET ORALLY TWICE A DAY, NOTES: 06/03/19 TAKING VITAMIN D (ERGOCALCIFEROL) 1.25 MG (31354 UT) CAPSULE 1 CAPSULE ORALLY EVERY 2 WEEKS, NOTES: 2 WEEKS AGO TAKING ROSUVASTATIN CALCIUM 40 MG TABLET 1 TABLET ORALLY ONCE A DAY, NOTES: NONE LATELY TAKING FENTANYL 25 MCG/HR PATCH 72 HOUR 1 PATCH TO SKIN TRANSDERMAL , NOTES: 06/04/19 TAKING ADZENYS XR-ODT 6.3 MG TABLET EXTENDED RELEASE DISINTEGRATING 1 TABLET IN THE MORNING ORALLY ONCE A DAY, NOTES: 06/06/19 TAKING OXYMORPHONE HCL 5 MG TABLET 1 TABLET 1 HOUR BEFORE OR 2 HOURS AFTER EATING NEEDED ORALLY EVERY 6 HRS PRN NOT-TAKING DEXILANT 60 MG CAPSULE DELAYED RELEASE 1 CAPSULE ORALLY ONCE A DAY PRN NOT-TAKING MORPHINE SULFATE 15 MG TABLET 1 TABLET NEEDED ORALLY THREE TIMES DAILY NEEDED NOT-TAKING MYDAYIS 50 MG CAPSULE EXTENDED RELEASE 24 HOUR 1 CAPSULE IN THE MORNING ORALLY ONCE A DAY NOT-TAKING MS CONTIN 15 MG TABLET EXTENDED RELEASE 1 TABLET ORALLY EVERY 12 HRS MEDICATION LIST REVIEWED AND RECONCILED WITH THE PATIENT PAST MEDICAL HISTORY HYPERTENSION HERNIATED DISC CERVIACAL,THORACIC GOUT ADHD SLEEP APNEA GERD BRACHIAL PLEXUS DISORDR SPINAL STER SPINAL STENOSIS INSOMNIA TACHY CARDIA HIATAL HERNIA GASTROPARESIS RADICULOPATHY DORSAL COLUMN STIMULATOR ALLERGIES ADHESIVE ON ICY HOT PATCHES/LIDOCAIN: ANAPHYLAXIS PROVIGIL: UNKNOWN SURGICAL HISTORY DEVIATED SEPTUM 2011 C1-C2 DORSAL COLUMN STIMULATOR 2017 HARJEET RECTAL ABSCESS,FISTULOTOMY AND SPHICTEROTOMY 2014 WISDOM TEETH 2010 FAMILY HISTORY FATHER: ALIVE MOTHER: ALIVE, DIAGNOSED WITH HYPERTENSION SIBLINGS: ALIVE DAUGHTER(S): ALIVE 1 BROTHER(S) . 1DAUGHTER(S) - HEALTHY. DAUGHTER IS AUTISTIC, ADHDDAD HAS CARDIAC ARRHYTHMIAS ? ABLATIONBROTHER WITH CROHN'S. SOCIAL HISTORY GENERAL: TOBACCO USE ARE YOU A:NONSMOKER NEVER SMOKER OTHERS AT HOME: SPOUSE, AND STEP SONS. EDUCATION LEVEL OF EDUCATION:NOT FINISHED COLLEGE DIET: REGULAR. LANGUAGE LANGUAGES SPOKEN:[place]OROCC[place] DOMESTIC VIOLENCE DO YOU FEEL SAFE IN YOUR ENVIRONMENT?YES RECREATIONAL DRUG USE DRUG USE?NO PT VERBALIZES NEVER ABUSED EXERCISE: WALKSCTIVE LIFESTYLE. LEARNING BARRIERS / SPECIAL NEEDS CHANGE FROM LAST VISIT?NO BARRIERS TO LEARNING?NO HEARING IMPAIRED?NO VISION IMPAIRED?NO COGNITIVELY IMPAIRED?NO READINESS TO LEARN?YES LEARNING PREFERENCES?NO LEARNING CAPABILITIES PRESENT?YES EMOTIONAL BARRIERS?NO ADHD SPECIAL DEVICES?YES CPAP BORDEREAU CLERK NEEDED?NO PAIN CLINIC PFS, CLERGY, PUBLIC HEALTH REFERRALS PFS REFERRAL NEEDED?NO CLERGY REFERRAL NEEDED?NO PUBLIC HEALTH REFERRAL NEEDED?NO WAS THE PROVIDER NOTIFIED OF ANY PERTINENT INFO?NO HAS THE PATIENT BEEN EDUCATED REGARDING HIS/HER PLAN OF CARE?YES HAS THE PATIENT BEEN EDUCATED REGARDING PAIN, THE RISK FOR PAIN, THE IMPORTANCE OF EFFECTIVE PAIN MANAGEMENT, AND THE PAIN ASSESSMENT PROCESS?YES LATEX QUESTIONNAIRE LATEX ALLERGY : HAVE YOU EVER DEVELOPED ANY TYPE OF REACTION AFTER HANDLING LATEX PRODUCTS SUCH RUBBER GLOVES, CONDOMS, DIAPHRAGMS, BALLOONS, SOCKS, OR UNDERWEAR?NO LATEX ALLERGY : HAVE YOU EVER DEVELOPED ANY TYPE OF REACTION DURING OR AFTER DENTAL APPOINTMENT, VAGINAL/RECTAL EXAMINATION, SURGICAL PROCEDURE, OR ANY OTHER EXPOSURE?NO DATE ASKED : 04/13/2019 LATEX RISK : HAVE YOU EVER HAD ANY DIFFICULTY BREATHING OR HIVES AFTER EATING OR HANDLING ANY FRUITS, OR VEGETABLES; SUCH KIWI, BANANAS, STONE FRUITS, OR CHESTNUTSNO LATEX RISK : DO YOU HAVE A PREVIOUS PERSONAL HISTORY OF MORE THAN NINE SURGERIES, SPINA BIFIDA, OR REPEATED CATHERIZATIONS? NO LATEX RISK : ARE YOU FREQUENTLY EXPOSED TO LATEX PRODUCTS IN YOUR OCCUPATION?NO CAFFEINE CAFFEINE USE?YES OCCASIONAL ADVANCE DIRECTIVE ADVANCE DIRECTIVE DISCUSSED WITH PATIENT:YES PATIENT HAS NO ADVANCED DIRECTIVES AND DECLINES INFORMATION ON HCP AT THIS TIME. [facility] [id number] UATSDIN MARITAL STATUS: . 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 PRE PROCEDURE PHONE SCREENING 04/13/2019 LASREVIEWED WITH PATIENT 04/30/2019 1026 JS. HOSPITALIZATION/MAJOR DIAGNOSTIC PROCEDURE SURGERIES REVIEW OF SYSTEMS REVIEWED BY: PROVIDER: . CONSTITUTIONAL: ANY CHANGE IN YOUR MEDICAL CONDITION? NO . CHILLS NO . FEVER NO . INFECTION: DO YOU HAVE NEW INFECTIONS? NO . DO YOU HAVE HISTORY OF MRSA? NO . MUSCULOSKELETAL: ANY NEW PATTERNS OF PAIN OR NUMBNESS? NO . GASTROENTEROLOGY: ANY NEW CHANGE IN BOWEL CONTROL? NO . GENITOURINARY: ANY NEW CHANGE IN BLADDER CONTROL? NO . IS THERE A CHANCE YOU COULD BE ? NO . HEMATOLOGY/LYMPH: DO YOU TAKE ANY BLOOD THINNERS? (FOR EXAMPLE- COUMADIN, PLAVIX, AGGRENOX, PLATEL, PRADAXA, OR XARELTO) NO . WHEN WAS YOUR LAST DOSE? DATE: TIME: . NEUROLOGY: HAVE YOU FALLEN IN THE PAST 12 MONTHS? PRIOR TO LAST VISIT . ANY NEW EXTREMITY NUMBNESS OR WEAKNESS? NO . CARDIOLOGY: DO YOU HAVE A PACEMAKER OR DEFIBRILLATOR? YES, DCS . RESPIRATORY: HAVE YOU BEEN SICK IN THE PAST WEEK? NO . FEVER NO . FLU LIKE SYMPTOMS? NO . COUGH NO . INTEGUMENTARY: DO YOU HAVE ANY RASHES OR OPEN SORES? NO . ALLERGIC/IMMUNO: ARE YOU ALLERGIC TO IV DYE? NO . ANY NEW ALLERGIES? NO . PSYCHIATRIC: DO YOU HAVE THOUGHTS OF HURTING YOURSELF OR SOMEONE ELSE? NO . ARE YOU ABUSED, NEGLECTED, OR IN AN UNSAFE ENVIRONMENT? NO . ENDOCRINOLOGY: ARE YOU DIABETIC? NO . OTHER: DO YOU NEED ANY PRESCRIPTIONS? NO . IF YES, PLEASE LIST: ____ . ANY NEW PROBLEMS WITH YOUR MEDICATIONS? NO . WHEN DID YOU LAST EAT? 06/05/192199 . WHEN DID YOU LAST DRINK? 06/05/192199 . WHAT DID YOU LAST DRINK? PEPSI . NAME OF PERSON DRIVING YOU HOME? ANTHONY . DO YOU HAVE ANY OTHER QUESTIONS OR CONCERNS NO . VITAL SIGNS WT 260.0 LBS, HT 72 IN, BMI 35.26 INDEX, BP 107/56 MM HG, HR 76 /MIN, RR 18 /MIN, TEMP 97.1 F, OXYGEN SAT % 96%, SAFE IN ENV? (Y/N) Y, NA INITIALS AW 1107, REVIEWED BY: EM. ASSESSMENTS MYALGIA, OTHER SITE - M79.18 (PRIMARY) TREATMENT MYALGIA, OTHER SITE [facility] FLUORO GUIDANCE (PAIN)[id number] PROCEDURES PN TRIGGER POINT INJECTION WITH STEROIDS PRE PROCEDURE DIAGNOSIS 1. MYALGIA 2. PAIN AT BILATERAL NECK AREA AND BILATERAL SHOULDER AREA. POST PROCEDURE DIAGNOSIS 1. MYALGIA 2. PAIN AT BILATERAL NECK AREA AND BILATERAL SHOULDER AREA. PROCEDURE TRIGGER POINT INJECTION AT RIGHT AND LEFT NECK AREA AND RIGHT AND LEFT SHOULDER AREA UNDER FLUOROSCOPIC GUIDANCE SURGEON DR. JAVIER SOTELO MEDICAL OFFICE CLERK NONE ANESTHESIA LOCAL PRE PROCEDURE NOTE THE PATIENT HAS A HISTORY OF CHRONIC PAIN AT THE BILATERAL NECK AREA AND BILATERAL SHOULDER AREA. I EVALUATED THE PATIENT AND REVIEWED THE CHART. THERE IS EVIDENCE OF BANDS OF TISSUE WITH RESTRICTION OF MOVEMENT AND PRESENCE OF TRIGGER POINT AT THE AFFECTED AREA. I WENT OVER THE RISKS, ALTERNATIVES, AND BENEFITS ASSOCIATED WITH THIS PROCEDURE. THE PATIENT WOULD LIKE TO PROCEED AND GIVE CONSENT TO PERFORMED THE PROCEDURE. THE PATIENT DENIES UNEXPLAINABLE WEIGHT LOSS, FEVER, CHILLS, OR NEW CHANGES IN URINARY OR BOWEL CONTROL. WE WILL PERFORM THE PROCEDURE UNDER FLUOROSCOPIC GUIDANCE DUE TO THE PATIENT SCS. DESCRIPTION OF PROCEDURE THE PATIENT WAS BROUGHT TO THE PROCEDURE ROOM AND PLACED IN THE SITTING POSITION. THE AREA WAS CLEANED WITH ALCOHOL. THE PROCEDURE WAS DONE USING ASEPTIC STERILE TECHNIQUE. I CHECKED LATERALITY AND THE LEVEL WHERE THE PROCEDURE WAS GOING TO BE PERFORMED WITH THE PATIENT AND THE SUPPORTING STAFF AT THE MOMENT OF THE TIME OUT IN THE PROCEDURE ROOM. I CHECKED UNDER X-RAY THE AREAS TO BE INJECTED DUE TO PATIENT HAVING A SPINAL COLUMN STIMULATOR IMPLANT. USING A 25-GAUGE NEEDLE, TRIGGER POINTS WERE INJECTED AT THE RIGHT AND LEFT NECK AREA AND RIGHT AND LEFT SHOULDER AREA WITH A TOTAL OF 40 ML OF BUPIVACAINE 0.25% AND KENALOG 40 MG. THERE WAS NO EVIDENCE OF BLOOD, PARESTHESIA OR CEREBROSPINAL FLUID DURING THE PROCEDURE. THE PATIENT WAS SENT TO THE RECOVERY ROOM. THE PATIENT WAS MOVING THE EXTREMITIES AND DOING WELL. THERE WAS NO COMPLICATION DURING THE PROCEDURE. FLUOROSCOPY TIME WAS 6 SECONDS. I, BLAKE AMES, DOCUMENTED THE ABOVE INFORMATION ACTING A SCRIBE FOR DR. SOTELO. I HAVE REVIEWED THE ABOVE DOCUMENT, WRITTEN BY BLAKE SAUER AND I VERIFY THAT IT IS ACCURATE. POST PROCEDURE NOTE THE PATIENT WILL BE SEEN IN A FOLLOW UP IN THE NEXT FEW WEEKS. INSTRUCTIONS WERE GIVEN, QUESTIONS WERE ANSWERED, AND THE PATIENT EXPRESSED UNDERSTANDING AND AGREES WITH THE PLAN. I, BLAKE AMES, DOCUMENTED THE ABOVE INFORMATION ACTING A SCRIBE FOR DR. SOTELO. I HAVE REVIEWED THE ABOVE DOCUMENT, WRITTEN BY BLAKE SAUER AND I VERIFY THAT IT IS ACCURATE. PROCEDURE CODES [id number] INJECT TRIGGER POINTS 3/> [id number] NEEDLE LOCALIZATION BY MILAGROS, MODIFIERS: 26 DISPOSITION & COMMUNICATION FOLLOW UP 3 WEEKS ELECTRONICALLY SIGNED BY JAVIER SOTELO MD, MD ON 06/14/2019 AT 01:35 PM EDT DISCLAIMER : THIS IS A VISIT SUMMARY EXTRACTED FROM THE [employer] CHART. IT IS NOT A COPY OF THE [employer] PROGRESS NOTE. BIANCA
== END ==
LOC: M PAIN 11:00
PROVIDERS: ATTEND Anesthesiology
DX: M79.18 Myalgia, other site (principal); Z79.891 Long term (current) use of opiate analgesic; Z79.899 Other long term (current) drug therapy; Z88.8 Allergy status to other drugs, medicaments and biological substances; Z91.048 Other nonmedicinal substance allergy status
CPT/HCPCS: 20553; 77002; J3301

== ENCOUNTER → 2019-06-20 | Outpatient (CLI) | payer OTHER ==
[~2019-06-20] MED LIST changes: -BUPIVACAINE HCL 0.25% 30 ML VIAL As Ordered ONE; -TRIAMCINOLONE ACETONIDE SUSP 40 MG/ML VIAL (J3301) As Ordered ONE
--- NOTE | 2019-06-21 03:24 | ECWPNPC ---
PATIENT NAME: CHUNG MAYERS : 1985 GENDER: MALE VISIT DATE: 06/20/2019 DISCHARGE DATE: 06/20/19 1326 VISIT LOCKED DATE TIME: PHYSICIAN: DIDIER HARRISON RESOURCE: DIDIER HARRISON REASON FOR APPOINTMENT 1. POST TPI HISTORY OF PRESENT ILLNESS HISTORY OF PRESENT ILLNESS: PHONE CALL TO PATIENT. PERMISSION TO DO PHONE VISIT OBTAINED FROM PATIENT. HAD TRIGGER POINT INJECTIONS TO BILATERAL NECK AND SHOULDERS ON 06/06/2019. REPORTING NO IMPROVEMENT POST PROCEDURE. REPORTING AGGRAVATION IN NECK PAIN, RIGHT GREATER THAN LEFT POSTPROCEDURE. REPORTED SOME SWELLING AT INJECTION SITE AND TENDERNESS, RIGHT GREATER THAN LEFT. RATING PAIN VAS 5/10. PAIN IS AGGRAVATED WITH RANGE OF JOINT MOTION OF THE NECK. DENIES RECENT FEVER, ILLNESS, OR SUDDEN WEIGHT LOSS. DENIES BOWEL OR BLADDER INCONTINENCE. PAIN THE PATIENT DESCRIBES THE PAIN... FALL RISK SCREENING: SCREENING :NO FALLS REPORTED IN THE LAST YEAR CURRENT MEDICATIONS TAKING KETOROLAC TROMETHAMINE 30 MG/ML SOLUTION 0.5 ML NEEDED INJECTION EVERY 6 HRS TAKING TELMISARTAN 80 MG TABLET 1 TABLET ORALLY ONCE A DAY TAKING CARVEDILOL 12.5 MG TABLET 1 TABLET ORALLY TWICE A DAY TAKING ZOFRAN 4 MG TABLET 1 TABLET ORALLY EVERY 6 HOURS NEEDED TAKING ALLOPURINOL 300 MG TABLET 1 TABLET ORALLY ONCE A DAY TAKING ZANAFLEX 4 MG TABLET 1 TABLET NEEDED ORALLY THREE TIMES A DAY TAKING MAY USE BACLOFEN 10 MG ORALLY TWICE A DAY NEEDED TAKING ADDERALL 10 MG TABLET 1 TABLET ORALLY EVERY AFTERNOON NEEDED TAKING BELSOMRA 20 MG TABLET 1 TABLET AT BEDTIME NEEDED ORALLY ONCE A DAY TAKING ZOMIG 2.5 MG TABLET 1 TABLET ORALLY ONCE A DAY, CAN REPEAT AFTER TWO HOURS TAKING TOPIRAMATE 50 MG TABLET 1 TABLET ORALLY TWICE A DAY TAKING VITAMIN D (ERGOCALCIFEROL) 1.25 MG (14256 UT) CAPSULE 1 CAPSULE ORALLY EVERY 2 WEEKS TAKING ROSUVASTATIN CALCIUM 40 MG TABLET 1 TABLET ORALLY ONCE A DAY TAKING FENTANYL 25 MCG/HR PATCH 72 HOUR 1 PATCH TO SKIN TRANSDERMAL TAKING ADZENYS XR-ODT 6.3 MG TABLET EXTENDED RELEASE DISINTEGRATING 1 TABLET IN THE MORNING ORALLY ONCE A DAY TAKING OXYMORPHONE HCL 5 MG TABLET 1 TABLET 1 HOUR BEFORE OR 2 HOURS AFTER EATING NEEDED ORALLY EVERY 6 HRS PRN NOT-TAKING DEXILANT 60 MG CAPSULE DELAYED RELEASE 1 CAPSULE ORALLY ONCE A DAY PRN NOT-TAKING MORPHINE SULFATE 15 MG TABLET 1 TABLET NEEDED ORALLY THREE TIMES DAILY NEEDED NOT-TAKING MYDAYIS 50 MG CAPSULE EXTENDED RELEASE 24 HOUR 1 CAPSULE IN THE MORNING ORALLY ONCE A DAY NOT-TAKING MS CONTIN 15 MG TABLET EXTENDED RELEASE 1 TABLET ORALLY EVERY 12 HRS MEDICATION LIST REVIEWED AND RECONCILED WITH THE PATIENT PAST MEDICAL HISTORY HYPERTENSION HERNIATED DISC CERVIACAL,THORACIC GOUT ADHD SLEEP APNEA GERD BRACHIAL PLEXUS DISORDR SPINAL STER SPINAL STENOSIS INSOMNIA TACHY CARDIA HIATAL HERNIA GASTROPARESIS RADICULOPATHY DORSAL COLUMN STIMULATOR ALLERGIES ADHESIVE ON ICY HOT PATCHES/LIDOCAIN: ANAPHYLAXIS PROVIGIL: UNKNOWN SURGICAL HISTORY DEVIATED SEPTUM 2011 C1-C2 DORSAL COLUMN STIMULATOR 2018 HARJEET RECTAL ABSCESS,FISTULOTOMY AND SPHICTEROTOMY 2015 WISDOM TEETH 2010 FAMILY HISTORY FATHER: ALIVE MOTHER: ALIVE, DIAGNOSED WITH HYPERTENSION SIBLINGS: ALIVE DAUGHTER(S): ALIVE 1 BROTHER(S) . 1DAUGHTER(S) - HEALTHY. DAUGHTER IS AUTISTIC, ADHDDAD HAS CARDIAC ARRHYTHMIAS ? ABLATIONBROTHER WITH CROHN'S. SOCIAL HISTORY GENERAL: TOBACCO USE ARE YOU A:NONSMOKER NEVER SMOKER OTHERS AT HOME: SPOUSE, AND STEP SONS. EDUCATION LEVEL OF EDUCATION:NOT FINISHED COLLEGE DIET: REGULAR. LANGUAGE LANGUAGES SPOKEN:COOK ISLANDER DOMESTIC VIOLENCE DO YOU FEEL SAFE IN YOUR ENVIRONMENT?YES NEW PATIENT PAIN DIARY TODAY'S VISITNOTES 06/20/2019 PATIENT DESCRIBES PAIN :ACHING, STABBING FROM 0-10, WHAT LEVEL IS YOUR PAIN TODAY?5 RECREATIONAL DRUG USE DRUG USE?NO PT VERBALIZES NEVER ABUSED EXERCISE: WALKSCTIVE LIFESTYLE. LEARNING BARRIERS / SPECIAL NEEDS CHANGE FROM LAST VISIT?NO BARRIERS TO LEARNING?NO HEARING IMPAIRED?NO VISION IMPAIRED?NO COGNITIVELY IMPAIRED?NO READINESS TO LEARN?YES LEARNING PREFERENCES?NO LEARNING CAPABILITIES PRESENT?YES EMOTIONAL BARRIERS?NO ADHD SPECIAL DEVICES?YES CPAP RAISE MINER NEEDED?NO PAIN CLINIC PFS, CLERGY, PUBLIC HEALTH REFERRALS PFS REFERRAL NEEDED?NO CLERGY REFERRAL NEEDED?NO PUBLIC HEALTH REFERRAL NEEDED?NO WAS THE PROVIDER NOTIFIED OF ANY PERTINENT INFO?NO HAS THE PATIENT BEEN EDUCATED REGARDING HIS/HER PLAN OF CARE?YES HAS THE PATIENT BEEN EDUCATED REGARDING PAIN, THE RISK FOR PAIN, THE IMPORTANCE OF EFFECTIVE PAIN MANAGEMENT, AND THE PAIN ASSESSMENT PROCESS?YES LATEX QUESTIONNAIRE LATEX ALLERGY : HAVE YOU EVER DEVELOPED ANY TYPE OF REACTION AFTER HANDLING LATEX PRODUCTS SUCH RUBBER GLOVES, CONDOMS, DIAPHRAGMS, BALLOONS, SOCKS, OR UNDERWEAR?NO LATEX ALLERGY : HAVE YOU EVER DEVELOPED ANY TYPE OF REACTION DURING OR AFTER DENTAL APPOINTMENT, VAGINAL/RECTAL EXAMINATION, SURGICAL PROCEDURE, OR ANY OTHER EXPOSURE?NO LATEX RISK : HAVE YOU EVER HAD ANY DIFFICULTY BREATHING OR HIVES AFTER EATING OR HANDLING ANY FRUITS, OR VEGETABLES; SUCH KIWI, BANANAS, STONE FRUITS, OR CHESTNUTSNO LATEX RISK : DO YOU HAVE A PREVIOUS PERSONAL HISTORY OF MORE THAN NINE SURGERIES, SPINA BIFIDA, OR REPEATED CATHERIZATIONS? NO LATEX RISK : ARE YOU FREQUENTLY EXPOSED TO LATEX PRODUCTS IN YOUR OCCUPATION?NO DATE ASKED : 04/13/2019 CAFFEINE CAFFEINE USE?YES OCCASIONAL ADVANCE DIRECTIVE ADVANCE DIRECTIVE DISCUSSED WITH PATIENT:YES PATIENT HAS NO ADVANCED DIRECTIVES AND DECLINES INFORMATION ON HCP AT THIS TIME. BUDDHISM [id number] QUAKER MARITAL STATUS: . 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 HOSPITALIZATION/MAJOR DIAGNOSTIC PROCEDURE SURGERIES REVIEW OF SYSTEMS REVIEWED BY: PROVIDER: DIDIER MORIN . CONSTITUTIONAL: ANY CHANGE IN YOUR MEDICAL CONDITION? NO . CHILLS NO . FEVER NO . INFECTION: DO YOU HAVE NEW INFECTIONS? NO . DO YOU HAVE HISTORY OF MRSA? NO . MUSCULOSKELETAL: ANY NEW PATTERNS OF PAIN OR NUMBNESS? YES, RIGHT BASE OF NECK MORE TENDER TO TOUCH SINCE TRIGGER POINT INJECTIONS . GASTROENTEROLOGY: ANY NEW CHANGE IN BOWEL CONTROL? NO . GENITOURINARY: ANY NEW CHANGE IN BLADDER CONTROL? NO . IS THERE A CHANCE YOU COULD BE ? NO . HEMATOLOGY/LYMPH: DO YOU TAKE ANY BLOOD THINNERS? (FOR EXAMPLE- COUMADIN, PLAVIX, AGGRENOX, PLATEL, PRADAXA, OR XARELTO) NO . WHEN WAS YOUR LAST DOSE? DATE: TIME: . NEUROLOGY: HAVE YOU FALLEN IN THE PAST 12 MONTHS? NO . ANY NEW EXTREMITY NUMBNESS OR WEAKNESS? NO . CARDIOLOGY: DO YOU HAVE A PACEMAKER OR DEFIBRILLATOR? NO, [facility] . RESPIRATORY: HAVE YOU BEEN SICK IN THE PAST WEEK? NO . FEVER NO . FLU LIKE SYMPTOMS? NO . COUGH NO . INTEGUMENTARY: DO YOU HAVE ANY RASHES OR OPEN SORES? NO . ALLERGIC/IMMUNO: ARE YOU ALLERGIC TO IV DYE? NO . ANY NEW ALLERGIES? NO . PSYCHIATRIC: DO YOU HAVE THOUGHTS OF HURTING YOURSELF OR SOMEONE ELSE? NO . ARE YOU ABUSED, NEGLECTED, OR IN AN UNSAFE ENVIRONMENT? NO . ENDOCRINOLOGY: ARE YOU DIABETIC? NO . OTHER: DO YOU NEED ANY PRESCRIPTIONS? NO . IF YES, PLEASE LIST: ____ . ANY NEW PROBLEMS WITH YOUR MEDICATIONS? NO . WHEN DID YOU LAST EAT? ____ . WHEN DID YOU LAST DRINK? ____ . WHAT DID YOU LAST DRINK? ____ . NAME OF PERSON DRIVING YOU HOME? ____ . DO YOU HAVE ANY OTHER QUESTIONS OR CONCERNS NO . ASSESSMENTS MYALGIA, OTHER SITE - M79.18 (PRIMARY) TREATMENT MYALGIA, OTHER SITE NOTES: PATIENT WILL CONTINUE HOME EXERCISE AND STRETCHING. WE WILL BRING PATIENT TO CLINIC FOR FOLLOW-UP TO CONSIDER INTERVENTIONAL TREATMENT OPTIONS. THIS PHONE VISIT IS BEING CALCULATED BY TIME SPENT ON TELEPHONE AND IS RECORDED 11 MINUTES. DISPOSITION & COMMUNICATION FOLLOW UP 4 WEEKS. PREPROCEDURE ELECTRONICALLY SIGNED BY MIKEL OLIVA ON 06/20/2019 AT 03:33 PM EDT DISCLAIMER : THIS IS A VISIT SUMMARY EXTRACTED FROM THE [employer] CHART. IT IS NOT A COPY OF THE [employer] PROGRESS NOTE. BIANCA
== END ==
LOC: M PAIN 10:30
PROVIDERS: ATTEND Nurse Practitioner Family
DX: M79.18 Myalgia, other site (principal); I10 Essential (primary) hypertension; M10.9 Gout, unspecified; G47.30 Sleep apnea, unspecified; K21.9 Gastro-esophageal reflux disease without esophagitis; K44.9 Diaphragmatic hernia without obstruction or gangrene; K31.84 Gastroparesis; M54.16 Radiculopathy, lumbar region; Z79.899 Other long term (current) drug therapy; Z91.040 Latex allergy status; Z88.8 Allergy status to other drugs, medicaments and biological substances

== ENCOUNTER → 2019-07-31 | Outpatient (CLI) | payer OTHER ==
--- NOTE | 2019-08-04 02:01 | ECWPNPC ---
PATIENT NAME: CHUNG MAYERS : 1985 GENDER: MALE VISIT DATE: 07/31/2019 DISCHARGE DATE: 07/31/19 1403 VISIT LOCKED DATE TIME: PHYSICIAN: DIDIER HARRISON RESOURCE: DIDIER HARRISON REASON FOR APPOINTMENT 1. PRE PROCEDURE-BACK/NECK-IN OFFICE HISTORY OF PRESENT ILLNESS HISTORY OF PRESENT ILLNESS: HERE FOR FOLLOW-UP OF PERSISTENT NECK PAIN. RATING NECK PAIN FOR OVER 10 VAS. PAIN IS WORSE ON THE RIGHT SIDE. PATIENT HAS DORSAL COLUMN STIMULATOR. DR. SOTELO HAD DISCUSSED POSSIBILITY OF DOING THERAPEUTIC FACET BLOCKS. SPOKE WITH DR. SOTELO WHO CAME IN TO EVALUATE PATIENT. PAIN IS AGGRAVATED BY STAYING AND BENDING. PAIN IS RELIEVED SOMEWHAT WITH REST. [facility] SOTELO WOULD LIKE TO PURSUE RIGHT CERVICAL THERAPEUTIC FACET BLOCK AND PATIENT IS AGREEABLE. PAIN THE PATIENT DESCRIBES THE PAIN... FALL RISK SCREENING: SCREENING :NO FALLS REPORTED IN THE LAST YEAR CURRENT MEDICATIONS TAKING KETOROLAC TROMETHAMINE 30 MG/ML SOLUTION 0.5 ML NEEDED INJECTION EVERY 6 HRS TAKING TELMISARTAN 80 MG TABLET 1 TABLET ORALLY ONCE A DAY TAKING CARVEDILOL 12.5 MG TABLET 1 TABLET ORALLY TWICE A DAY TAKING ZOFRAN 4 MG TABLET 1 TABLET ORALLY EVERY 6 HOURS NEEDED TAKING ALLOPURINOL 300 MG TABLET 1 TABLET ORALLY ONCE A DAY TAKING ZANAFLEX 4 MG TABLET 1 TABLET NEEDED ORALLY THREE TIMES A DAY TAKING MAY USE BACLOFEN 10 MG ORALLY TWICE A DAY NEEDED TAKING ADDERALL 10 MG TABLET 1 TABLET ORALLY EVERY AFTERNOON NEEDED TAKING BELSOMRA 20 MG TABLET 1 TABLET AT BEDTIME NEEDED ORALLY ONCE A DAY TAKING ZOMIG 2.5 MG TABLET 1 TABLET ORALLY ONCE A DAY, CAN REPEAT AFTER TWO HOURS TAKING TOPIRAMATE 50 MG TABLET 1 TABLET ORALLY TWICE A DAY TAKING VITAMIN D (ERGOCALCIFEROL) 1.25 MG (20812 UT) CAPSULE 1 CAPSULE ORALLY EVERY 2 WEEKS TAKING ROSUVASTATIN CALCIUM 40 MG TABLET 1 TABLET ORALLY ONCE A DAY TAKING FENTANYL 50 MCG/HR PATCH 72 HOUR 1 PATCH TO SKIN TRANSDERMAL EVERY 72 HOURS TAKING ADZENYS XR-ODT 6.3 MG TABLET EXTENDED RELEASE DISINTEGRATING 1 TABLET IN THE MORNING ORALLY ONCE A DAY TAKING OXYMORPHONE HCL 5 MG TABLET 1 TABLET 1 HOUR BEFORE OR 2 HOURS AFTER EATING NEEDED ORALLY EVERY 6 HRS PRN TAKING EMGALITY (300 MG DOSE) 100 MG/ML SOLUTION PREFILLED SYRINGE 3 ML SUBCUTANEOUS EVERY MONTH NOT-TAKING DEXILANT 60 MG CAPSULE DELAYED RELEASE 1 CAPSULE ORALLY ONCE A DAY PRN NOT-TAKING MORPHINE SULFATE 15 MG TABLET 1 TABLET NEEDED ORALLY THREE TIMES DAILY NEEDED NOT-TAKING MYDAYIS 50 MG CAPSULE EXTENDED RELEASE 24 HOUR 1 CAPSULE IN THE MORNING ORALLY ONCE A DAY NOT-TAKING MS CONTIN 15 MG TABLET EXTENDED RELEASE 1 TABLET ORALLY EVERY 12 HRS MEDICATION LIST REVIEWED AND RECONCILED WITH THE PATIENT PAST MEDICAL HISTORY HYPERTENSION HERNIATED DISC CERVIACAL,THORACIC GOUT ADHD SLEEP APNEA GERD BRACHIAL PLEXUS DISORDER SPINAL STENOSIS INSOMNIA TACHY CARDIA HIATAL HERNIA GASTROPARESIS RADICULOPATHY DORSAL COLUMN STIMULATOR ALLERGIES ADHESIVE ON ICY HOT PATCHES/LIDOCAINE: ANAPHYLAXIS PROVIGIL: UNKNOWN SURGICAL HISTORY DEVIATED SEPTUM 2011 C1-C2 DORSAL COLUMN STIMULATOR 2018 HARJEET RECTAL ABSCESS,FISTULOTOMY AND SPHICTEROTOMY 2014 WISDOM TEETH 2010 FAMILY HISTORY FATHER: ALIVE MOTHER: ALIVE, DIAGNOSED WITH HYPERTENSION SIBLINGS: ALIVE DAUGHTER(S): ALIVE 1 BROTHER(S) . 1DAUGHTER(S) - HEALTHY. DAUGHTER IS AUTISTIC, ADHDDAD HAS CARDIAC ARRHYTHMIAS ? ABLATIONBROTHER WITH CROHN'S. SOCIAL HISTORY GENERAL: TOBACCO USE ARE YOU A:NONSMOKER NEVER SMOKER LATEX QUESTIONNAIRE LATEX ALLERGY : HAVE YOU EVER DEVELOPED ANY TYPE OF REACTION AFTER HANDLING LATEX PRODUCTS SUCH RUBBER GLOVES, CONDOMS, DIAPHRAGMS, BALLOONS, SOCKS, OR UNDERWEAR?NO LATEX ALLERGY : HAVE YOU EVER DEVELOPED ANY TYPE OF REACTION DURING OR AFTER DENTAL APPOINTMENT, VAGINAL/RECTAL EXAMINATION, SURGICAL PROCEDURE, OR ANY OTHER EXPOSURE?NO DATE ASKED : 04/13/2019 LATEX RISK : HAVE YOU EVER HAD ANY DIFFICULTY BREATHING OR HIVES AFTER EATING OR HANDLING ANY FRUITS, OR VEGETABLES; SUCH KIWI, BANANAS, STONE FRUITS, OR CHESTNUTSNO LATEX RISK : DO YOU HAVE A PREVIOUS PERSONAL HISTORY OF MORE THAN NINE SURGERIES, SPINA BIFIDA, OR REPEATED CATHERIZATIONS? NO LATEX RISK : ARE YOU FREQUENTLY EXPOSED TO LATEX PRODUCTS IN YOUR OCCUPATION?NO ALCOHOL SCREENING DID YOU HAVE A DRINK CONTAINING ALCOHOL IN THE PAST YEAR?YES HOW MANY DRINKS DID YOU HAVE ON A TYPICAL DAY WHEN YOU WERE DRINKING IN THE PAST YEAR?1 OR 2 (0 POINTS) HOW OFTEN DID YOU HAVE A DRINK CONTAINING ALCOHOL IN THE PAST YEAR?TWO TO FOUR TIMES A MONTH (2 POINTS) POINTS2 INTERPRETATIONNEGATIVE RECREATIONAL DRUG USE DRUG USE?NO PT VERBALIZES NEVER ABUSED PATIENT DENIES ABUSE OR MISSUSED OF ANY MEDICATION DENIES 07/31/19 CAFFEINE CAFFEINE USE?YES OCCASIONAL EPISCOPAL [id number] SABIANIST LANGUAGE LANGUAGES SPOKEN:ESTONIAN EDUCATION LEVEL OF EDUCATION:NOT FINISHED COLLEGE LEARNING BARRIERS / SPECIAL NEEDS CHANGE FROM LAST VISIT?NO BARRIERS TO LEARNING?NO HEARING IMPAIRED?NO VISION IMPAIRED?NO COGNITIVELY IMPAIRED?NO READINESS TO LEARN?YES LEARNING PREFERENCES?NO LEARNING CAPABILITIES PRESENT?YES EMOTIONAL BARRIERS?NO ADHD SPECIAL DEVICES?YES CPAP BENCH JEWELER NEEDED?NO DOMESTIC VIOLENCE DO YOU FEEL SAFE IN YOUR ENVIRONMENT?YES 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 EXERCISE: WALKS, ACTIVE LIFESTYLE. MARITAL STATUS: . OTHERS AT HOME: SPOUSE, AND STEP SONS. NEW PATIENT PAIN DIARY TODAY'S VISITNOTES 07/31/2019 PATIENT DESCRIBES PAIN :ACHING, BURNING, IT COMES AND GOES, STABBING FROM 0-10, WHAT LEVEL IS YOUR PAIN TODAY?4 PRECIPITATING FACTORS LIFTING, CARDIOLOGY CONSULTANT, CROUNCHING, BENDIING ALLEVIATING FACTORS HEAT, DORSAL COLUMN STIMULATOR, MASSAGE, MEDICATIONS PAIN CLINIC PFS, CLERGY, PUBLIC HEALTH REFERRALS PFS REFERRAL NEEDED?NO CLERGY REFERRAL NEEDED?NO PUBLIC HEALTH REFERRAL NEEDED?NO WAS THE PROVIDER NOTIFIED OF ANY PERTINENT INFO?NO HAS THE PATIENT BEEN EDUCATED REGARDING HIS/HER PLAN OF CARE?YES HAS THE PATIENT BEEN EDUCATED REGARDING PAIN, THE RISK FOR PAIN, THE IMPORTANCE OF EFFECTIVE PAIN MANAGEMENT, AND THE PAIN ASSESSMENT PROCESS?YES ADVANCE DIRECTIVE ADVANCE DIRECTIVE DISCUSSED WITH PATIENT:YES PATIENT HAS NO ADVANCED DIRECTIVES AND DECLINES INFORMATION ON HCP AT THIS TIME. HOSPITALIZATION/MAJOR DIAGNOSTIC PROCEDURE SURGERIES REVIEW OF SYSTEMS REVIEWED BY: PROVIDER: DIDIER MORIN . CONSTITUTIONAL: ANY CHANGE IN YOUR MEDICAL CONDITION? NO . CHILLS NO . FEVER NO . INFECTION: DO YOU HAVE NEW INFECTIONS? NO . DO YOU HAVE HISTORY OF MRSA? NO . MUSCULOSKELETAL: ANY NEW PATTERNS OF PAIN OR NUMBNESS? NO . GASTROENTEROLOGY: ANY NEW CHANGE IN BOWEL CONTROL? NO . GENITOURINARY: ANY NEW CHANGE IN BLADDER CONTROL? NO . IS THERE A CHANCE YOU COULD BE ? NO . HEMATOLOGY/LYMPH: DO YOU TAKE ANY BLOOD THINNERS? (FOR EXAMPLE- COUMADIN, PLAVIX, AGGRENOX, PLATEL, PRADAXA, OR XARELTO) NO . WHEN WAS YOUR LAST DOSE? DATE: TIME: . NEUROLOGY: HAVE YOU FALLEN IN THE PAST 12 MONTHS? NO . ANY NEW EXTREMITY NUMBNESS OR WEAKNESS? NO . CARDIOLOGY: DO YOU HAVE A PACEMAKER OR DEFIBRILLATOR? NO; DOES HAVE DORSAL COLUMN STIMULATOR . RESPIRATORY: HAVE YOU BEEN SICK IN THE PAST WEEK? NO . FEVER NO . FLU LIKE SYMPTOMS? NO . COUGH NO . INTEGUMENTARY: DO YOU HAVE ANY RASHES OR OPEN SORES? NO . ALLERGIC/IMMUNO: ARE YOU ALLERGIC TO IV DYE? NO . ANY NEW ALLERGIES? NO . PSYCHIATRIC: DO YOU HAVE THOUGHTS OF HURTING YOURSELF OR SOMEONE ELSE? NO . ARE YOU ABUSED, NEGLECTED, OR IN AN UNSAFE ENVIRONMENT? NO . ENDOCRINOLOGY: ARE YOU DIABETIC? NO . OTHER: DO YOU NEED ANY PRESCRIPTIONS? NO . IF YES, PLEASE LIST: ____ . ANY NEW PROBLEMS WITH YOUR MEDICATIONS? NO . WHEN DID YOU LAST EAT? ____ . WHEN DID YOU LAST DRINK? ____ . WHAT DID YOU LAST DRINK? ____ . NAME OF PERSON DRIVING YOU HOME? ____ . DO YOU HAVE ANY OTHER QUESTIONS OR CONCERNS YES - RIGHT UPPER BACK PAIN POST PROCEDURE . VITAL SIGNS WT 257.6 LBS, HT 72 IN, BMI 34.93 INDEX, BP 110/55 MM HG, HR 81 /MIN, RR 18 /MIN, TEMP 97.0 F, OXYGEN SAT % 96%, NA INITIALS AW 1302, REVIEWED BY: KARTIK. EXAMINATION GENERAL EXAMINATION: LUNGS: LUNG SOUNDS ARE CLEAR . HEART: HEART RATE REGULAR . MUSCULOSKELETAL:*, MUSCLE STRENGTH TESTING 5/5 BILATERAL UPPER EXTREMITIES. . CERVICAL:+ FOR PAIN WITH PALPATION OF CERVICAL SPINE. + FOR PAIN WITH PALPATION OF CERVICAL PARASPINALS.SPECIFIC POINT TENDERNESS NOTED OVER RIGHT C6/7-C7/T1-T1/2 CERVICAL FACETS WITH EXTENSION AND FACET LOADING.. DIAGNOSTIC TESTS REVIEWED CERVICAL MRI . ASSESSMENTS SPONDYLOSIS WITHOUT MYELOPATHY OR RADICULOPATHY, CERVICAL REGION - M47.812 (PRIMARY) TREATMENT SPONDYLOSIS WITHOUT MYELOPATHY OR RADICULOPATHY, CERVICAL REGION NOTES: RIGHT C6/7-C7/T1-T1/2 THERAPEUTIC FACET BLOCK,FACET JOINT INJECTION MATERIAL WAS PUBLISHED TO [employer]. OTHERS NOTES: FACET JOINT INJECTION MATERIAL WAS PRINTED. PROCEDURE CODES FA211 ESTABILISHED PATIENT [facility] CHARGE DISPOSITION & COMMUNICATION FOLLOW UP POST (REASON: RIGHT C6/7-C7/T1-T1/2 THERAPEUTIC FACET BLOCK) ELECTRONICALLY SIGNED BY MIKEL OLIVA ON 08/03/2019 AT 02:17 PM EDT DISCLAIMER : THIS IS A VISIT SUMMARY EXTRACTED FROM THE [employer] CHART. IT IS NOT A COPY OF THE [employer] PROGRESS NOTE. BIANCA
== END ==
LOC: M PAIN 13:00
PROVIDERS: ATTEND Nurse Practitioner Family
DX: M47.812 Spondylosis without myelopathy or radiculopathy, cervical region (principal); I10 Essential (primary) hypertension; Z86.59 Personal history of other mental and behavioral disorders; G47.30 Sleep apnea, unspecified; G47.00 Insomnia, unspecified; Z88.8 Allergy status to other drugs, medicaments and biological substances; Z91.09 Other allergy status, other than to drugs and biological substances; Z79.891 Long term (current) use of opiate analgesic; Z79.899 Other long term (current) drug therapy

== ENCOUNTER → 2019-10-11 | Outpatient (CLI) | payer OTHER | LOC: M LABSMTC 09:32 | PROVIDERS: ATTEND Anesthesiology | DX: Z20.828 Contact with and (suspected) exposure to other viral communicable diseases (principal); Z11.59 Encounter for screening for other viral diseases | CPT/HCPCS: C9803; U0003 ==

== ENCOUNTER → 2019-11-05 | Outpatient (POV) | payer OTHER | LOC: M PAIN 09:00 | PROVIDERS: ATTEND Nurse Practitioner Family | DX: M54.6 Pain in thoracic spine (principal) ==

== ENCOUNTER → 2019-11-20 | Outpatient (CLI) | payer OTHER ==
--- NOTE | 2019-11-20 07:24 | REPVR ---
PROCEDURE INFORMATION: Exam: CT Thoracic Spine Without Contrast Exam date and time: 11/20/2019 7:04 AM Age: 34 years old Clinical indication: Pain in thoracic spine; Additional info: Chronic thoracic and lumbar back pain TECHNIQUE: Imaging protocol: Computed tomography images of the thoracic spine without contrast. Radiation optimization: All CT scans at this facility use at least one of these dose optimization techniques: automated exposure control; mA and/or kV adjustment per patient size (includes targeted exams where dose is matched to clinical indication); or iterative reconstruction. COMPARISON: [place] [facility]ine, Thoracic 3 VIEWS 05/30/2018 2:18 PM FINDINGS: Vertebrae: No acute fracture. Normal alignment. Small sclerotic focus along the superior endplate of T10 most likely a bone island. Discs/Spinal canal/Neural foramina: No significant disc protrusion. No severe spinal canal stenosis. No significant neural foraminal narrowing. Soft tissues: Unremarkable. IMPRESSION: No fracture, listhesis or advanced degenerative change. Electronically signed by: Jocelynn Jackson On 11/20/2019 07:24:02 AM
--- NOTE | 2019-11-20 07:47 | REPVR ---
PROCEDURE INFORMATION: Exam: CT Lumbar Spine Without Contrast Exam date and time: 11/20/2019 7:04 AM Age: 34 years old Clinical indication: Low back pain; Additional info: Chronic thorasic and lumbar back pain TECHNIQUE: Imaging protocol: Computed tomography images of the lumbar spine without contrast. Radiation optimization: All CT scans at this facility use at least one of these dose optimization techniques: automated exposure control; mA and/or kV adjustment per patient size (includes targeted exams where dose is matched to clinical indication); or iterative reconstruction. COMPARISON: [facility]. Lumbosacral, complete 05/30/2018 2:18 PM FINDINGS: Vertebrae: No acute fracture. Normal alignment. L1-L2: No significant disc protrusion. No severe spinal canal stenosis. No significant neural foraminal narrowing. L2-L3: No significant disc protrusion. No spinal canal stenosis. No neural foraminal narrowing. L3-L4: Posterior diffuse disc bulge. Mild bilateral lateral recess narrowing. Minor facet arthritis. No severe spinal canal stenosis. No significant neural foraminal narrowing. L4-L5: Posterior and asymmetric left extending disc bulge. No severe spinal canal stenosis. Mild left foraminal narrowing inferiorly. Minor facet arthritis. L5-S1: No significant disc protrusion. No severe spinal canal stenosis. No significant neural foraminal narrowing. Soft tissues: Unremarkable. IMPRESSION: 1. Mild lower lumbar facet arthritis. 2. Posterior diffuse disc bulge L3-L4 with posterior and asymmetric left disc bulge L4-L5. 3. Mild left foraminal narrowing L4-L5. Electronically signed by: Rivka Pearce On 11/20/2019 07:47:05 AM
== END ==
LOC: M RAD 07:00
PROVIDERS: ATTEND Nurse Practitioner Family
DX: M51.26 Other intervertebral disc displacement, lumbar region (principal)

== ENCOUNTER → 2020-01-14 | Outpatient (CLI) | payer OTHER ==
--- NOTE | 2020-01-16 23:32 | ECWPNPC ---
PATIENT NAME: CHUNG MAYERS : 1985 GENDER: MALE VISIT DATE: 01/14/2020 DISCHARGE DATE: 01/14/20 1013 VISIT LOCKED DATE TIME: PHYSICIAN: DDIIER HARRISON RESOURCE: DIDIER HARRISON REASON FOR APPOINTMENT 1. REVIEW CT HISTORY OF PRESENT ILLNESS DEPRESSION SCREENING: PHQ-2 (2015 EDITION) LITTLE INTEREST OR PLEASURE IN DOING THINGS?NOT AT ALL FEELING DOWN, DEPRESSED, OR HOPELESS?NOT AT ALL TOTAL SCORE0 PAIN CENTER INTAKE QUESTIONS: DO YOU HAVE A HISTORY OF MRSA? :NO DO YOU TAKE A BLOOD THINNERS? :NO DO YOU HAVE ANY BLEEDING DISORDERS? :NO ANY NEW NUMBNESS OR WEAKNESS IN YOUR LEGS OR ARMS? :NO ANY PACEMAKER,DEFIBRILLATOR, OR DORSAL COLUMN STIMULATOR? :YES C1-C2 DORSAL COLUMM STIMULATOR DO YOU HAVE ANY RASHES OR OPEN SORES? :YES POSTERIOR HEAD SORE DUE TO CPAP MASK ARE YOU ALLERGIC TO IV DYE? :NO ARE YOU DIABETIC? :NO ANY NEW PROBLEMS WITH YOUR MEDICATIONS? :NO HAVE YOU RECEIVED A VACCINE IN THE PAST 30 DAYS? :NO DO YOU PLAN TO RECEIVE A VACCINE IN THE NEXT 21 DAYS? :YES IF SO WHAT VACCINE AND WHEN? POSSIBLY INFLUENZA DO YOU NEED ANY PRESCRIPTION? :NO DO YOU TAKE ANY IMMUNOSUPPRESSIVE MEDICATIONS? :NO IS THERE A CHANCE YOU COULD BE ? :NO ARE YOU BREAST FEEDING? :NO GENERAL: HERE FOR FOLLOW-UP OF CHRONIC NECK AND THORACIC BACK PAIN. CT SCAN THORACIC AND LUMBAR SPINE THAT I ORDERED AND WAS DONE ON 11/20/[address] SCAN IS SHOWING NO FRACTURE, LISTHESIS OR ADVANCED DEGENERATIVE CHANGE. CONTINUES WITH PAIN IN THE MID TO LOWER THORACIC SPINE THAT RADIATES ANTERIORLY. CONTINUES WITH NECK PAIN RIGHT GREATER THAN LEFT. HAS HAD SUCCESS WITH CERVICAL THERAPEUTIC FACET BLOCKS IN THE PAST. HAS DORSAL COLUMN STIMULATOR IN PLACE FOR NECK PAIN. STATES THAT THIS IS HELPFUL. HE IS INTERESTED IN DORSAL COLUMN STIM COVERAGE FOR THE THORACIC SPINE REGION. DISCUSSED TREATMENT OPTIONS TO INCLUDE TRIGGER POINT INJECTIONS AND PHYSICAL THERAPY FOR THORACIC MYALGIA. PATIENT IS NOT INCLINED TO HAVE TRIGGER POINTS AGAIN HE FELT THAT THEY WERE NOT HELPFUL. ALSO STATES THAT PHYSICAL THERAPY WAS NOT HELPFUL. HE HAS BEEN TRYING TO REACH ANNE FROM [employer]. I'VE ENCOURAGED HIM TO CONTACT US IF HE CONTINUES TO HAVE TROUBLE REACHING HIM.-. FALL RISK SCREENING: SCREENING :NO FALLS REPORTED IN THE LAST YEAR PAIN SCREENING: PATIENT HAS A COMPLAINT OF ACUTE OR CHRONIC PAIN :YES LOCATION OF PAIN:NECK, MID BACK INTENSITY OF PAIN (SCALE OF 1 TO 10):4 WHAT DOES YOUR PAIN FEEL LIKE:SHARP, OTHER RIGHT NECK SHARP, STINGING PAIN. LEFT THORACIC/SHOULDER BURNING PAIN. DURATION:CONTINOUS PAIN IS INCREASED BY:PROLONGED STANDING, ACTIVITIES PAIN IS DECREASED BY:SITTING, USE OF PAIN MEDICATIONS HEAT, MASSAGE NURSING NOTE: -. CURRENT MEDICATIONS TAKING KETOROLAC TROMETHAMINE 30 MG/ML SOLUTION 0.5 ML NEEDED INJECTION EVERY 6 HRS TAKING TELMISARTAN 80 MG TABLET 1 TABLET ORALLY ONCE A DAY TAKING CARVEDILOL 12.5 MG TABLET 1 TABLET ORALLY TWICE A DAY TAKING ZOFRAN 4 MG TABLET 1 TABLET ORALLY EVERY 6 HOURS NEEDED TAKING ALLOPURINOL 300 MG TABLET 1 TABLET ORALLY ONCE A DAY TAKING ZANAFLEX 4 MG TABLET 1 TABLET NEEDED ORALLY THREE TIMES A DAY TAKING MAY USE BACLOFEN 10 MG ORALLY TWICE A DAY NEEDED TAKING ADDERALL 10 MG TABLET 1 TABLET ORALLY EVERY AFTERNOON NEEDED TAKING BELSOMRA 20 MG TABLET 1 TABLET AT BEDTIME NEEDED ORALLY ONCE A DAY TAKING ZOMIG 5 MG TABLET 1 TABLET NEEDED ORALLY ONCE A DAY, CAN REPEAT AFTER TWO HOURS TAKING TOPIRAMATE 25 MG TABLET 1 TABLET ORALLY TWICE A DAY TAKING VITAMIN D (ERGOCALCIFEROL) 1.25 MG (00245 UT) CAPSULE 1 CAPSULE ORALLY EVERY 2 WEEKS TAKING ROSUVASTATIN CALCIUM 40 MG TABLET 1 TABLET ORALLY ONCE A DAY TAKING FENTANYL 50 MCG/HR PATCH 72 HOUR 1 PATCH TO SKIN TRANSDERMAL EVERY 72 HOURS TAKING ADZENYS XR-ODT 6.3 MG TABLET EXTENDED RELEASE DISINTEGRATING 1 TABLET IN THE MORNING ORALLY ONCE A DAY TAKING HYDROMORPHONE HCL 8 MG TABLET DIRECTED ORALLY 4 TIMES A DAY NEEDED TAKING FIORICET 50-325-40 MG TABLET 1 TABLET NEEDED ORALLY EVERY 4 HRS, NOTES: UNSURE OF DOSE TAKING EMGALITY 120 MG/ML SOLUTION AUTO-INJECTOR DIRECTED SUBCUTANEOUS EVERY MONTH NOT-TAKING OXYMORPHONE HCL 5 MG TABLET 1 TABLET 1 HOUR BEFORE OR 2 HOURS AFTER EATING NEEDED ORALLY EVERY 6 HRS PRN NOT-TAKING EMGALITY (300 MG DOSE) 100 MG/ML SOLUTION PREFILLED SYRINGE 3 ML SUBCUTANEOUS EVERY MONTH NOT-TAKING DEXILANT 60 MG CAPSULE DELAYED RELEASE 1 CAPSULE ORALLY ONCE A DAY PRN NOT-TAKING MORPHINE SULFATE 15 MG TABLET 1 TABLET NEEDED ORALLY THREE TIMES DAILY NEEDED NOT-TAKING MYDAYIS 50 MG CAPSULE EXTENDED RELEASE 24 HOUR 1 CAPSULE IN THE MORNING ORALLY ONCE A DAY NOT-TAKING MS CONTIN 15 MG TABLET EXTENDED RELEASE 1 TABLET ORALLY EVERY 12 HRS MEDICATION LIST REVIEWED AND RECONCILED WITH THE PATIENT PAST MEDICAL HISTORY HYPERTENSION HERNIATED DISC CERVIACAL,THORACIC GOUT ADHD SLEEP APNEA GERD BRACHIAL PLEXUS DISORDER SPINAL STENOSIS INSOMNIA TACHY CARDIA HIATAL HERNIA GASTROPARESIS RADICULOPATHY DORSAL COLUMN STIMULATOR ALLERGIES ADHESIVE ON ICY HOT PATCHES/LIDOCAINE: ANAPHYLAXIS PROVIGIL: UNKNOWN SURGICAL HISTORY DEVIATED SEPTUM 2011 C1-C2 DORSAL COLUMN STIMULATOR 2018 HARJEET RECTAL ABSCESS,FISTULOTOMY AND SPHICTEROTOMY 2015 WISDOM TEETH 2010 FAMILY HISTORY FATHER: ALIVE, STENTS IN LEG, CIRCULATORY ISSUES MOTHER: ALIVE, DIAGNOSED WITH HYPERTENSION SIBLINGS: ALIVE DAUGHTER(S): ALIVE 1 BROTHER(S) . 1DAUGHTER(S) - HEALTHY. DAUGHTER IS AUTISTIC, ADHDDAD HAS CARDIAC ARRHYTHMIAS ? ABLATIONBROTHER WITH CROHN'S. SOCIAL HISTORY GENERAL: TOBACCO USE ARE YOU A:NONSMOKER NEVER SMOKER LATEX QUESTIONNAIRE LATEX ALLERGY : HAVE YOU EVER DEVELOPED ANY TYPE OF REACTION AFTER HANDLING LATEX PRODUCTS SUCH RUBBER GLOVES, CONDOMS, DIAPHRAGMS, BALLOONS, SOCKS, OR UNDERWEAR?NO LATEX ALLERGY : HAVE YOU EVER DEVELOPED ANY TYPE OF REACTION DURING OR AFTER DENTAL APPOINTMENT, VAGINAL/RECTAL EXAMINATION, SURGICAL PROCEDURE, OR ANY OTHER EXPOSURE?NO DATE ASKED : 04/13/2019 LATEX RISK : HAVE YOU EVER HAD ANY DIFFICULTY BREATHING OR HIVES AFTER EATING OR HANDLING ANY FRUITS, OR VEGETABLES; SUCH KIWI, BANANAS, STONE FRUITS, OR CHESTNUTSNO LATEX RISK : DO YOU HAVE A PREVIOUS PERSONAL HISTORY OF MORE THAN NINE SURGERIES, SPINA BIFIDA, OR REPEATED CATHERIZATIONS? NO LATEX RISK : ARE YOU FREQUENTLY EXPOSED TO LATEX PRODUCTS IN YOUR OCCUPATION?NO ALCOHOL SCREENING DID YOU HAVE A DRINK CONTAINING ALCOHOL IN THE PAST YEAR?YES HOW MANY DRINKS DID YOU HAVE ON A TYPICAL DAY WHEN YOU WERE DRINKING IN THE PAST YEAR?1 OR 2 (0 POINTS) HOW OFTEN DID YOU HAVE A DRINK CONTAINING ALCOHOL IN THE PAST YEAR?TWO TO FOUR TIMES A MONTH (2 POINTS) POINTS2 INTERPRETATIONNEGATIVE RECREATIONAL DRUG USE DRUG USE?NO PT VERBALIZES NEVER ABUSED PATIENT DENIES ABUSE OR MISSUSED OF ANY MEDICATION DENIES 07/31/19 CAFFEINE CAFFEINE USE?YES OCCASIONAL CONGREGATION TGTHOSXY[employer] LATTER-DAY LANGUAGE LANGUAGES SPOKEN:NICARAGUAN EDUCATION LEVEL OF EDUCATION:NOT FINISHED COLLEGE LEARNING BARRIERS / SPECIAL NEEDS CHANGE FROM LAST VISIT?NO BARRIERS TO LEARNING?NO HEARING IMPAIRED?NO VISION IMPAIRED?YES :CORRECTIVE LENSES COGNITIVELY IMPAIRED?NO READINESS TO LEARN?YES LEARNING PREFERENCES?NO LEARNING CAPABILITIES PRESENT?YES EMOTIONAL BARRIERS?NO ADHD SPECIAL DEVICES?YES CPAP OPERATIONS SYSTEMS SPECIALIST NEEDED?NO DOMESTIC VIOLENCE DO YOU FEEL SAFE IN YOUR ENVIRONMENT?YES 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 EXERCISE: WALKS, ACTIVE LIFESTYLE. MARITAL STATUS: . OTHERS AT HOME: SPOUSE, AND STEP SONS. NEW PATIENT PAIN DIARY TODAY'S VISITNOTES 07/31/2019 PATIENT DESCRIBES PAIN :ACHING, BURNING, IT COMES AND GOES, STABBING FROM 0-10, WHAT LEVEL IS YOUR PAIN TODAY?4 PRECIPITATING FACTORS LIFTING, POND SAWYER, CROUNCHING, BENDIING ALLEVIATING FACTORS HEAT, DORSAL COLUMN STIMULATOR, MASSAGE, MEDICATIONS PAIN CLINIC PFS, CLERGY, PUBLIC HEALTH REFERRALS PFS REFERRAL NEEDED?NO CLERGY REFERRAL NEEDED?NO PUBLIC HEALTH REFERRAL NEEDED?NO WAS THE PROVIDER NOTIFIED OF ANY PERTINENT INFO?NO HAS THE PATIENT BEEN EDUCATED REGARDING HIS/HER PLAN OF CARE?YES HAS THE PATIENT BEEN EDUCATED REGARDING PAIN, THE RISK FOR PAIN, THE IMPORTANCE OF EFFECTIVE PAIN MANAGEMENT, AND THE PAIN ASSESSMENT PROCESS?YES ADVANCE DIRECTIVE ADVANCE DIRECTIVE DISCUSSED WITH PATIENT:YES HILARY IS HEALTH CARE AGENT [phone] HOSPITALIZATION/MAJOR DIAGNOSTIC PROCEDURE SURGERIES REVIEW OF SYSTEMS REVIEWED BY: PROVIDER: DIDIER MORIN . CONSTITUTIONAL: ANY CHANGE IN YOUR MEDICAL CONDITION? NO . CHILLS NO . FEVER NO . INFECTION: DO YOU HAVE NEW INFECTIONS? NO . DO YOU HAVE HISTORY OF MRSA? NO . MUSCULOSKELETAL: ANY UNUSUAL JOINT PAIN OR SWELLING NOT MENTIONED NO . GASTROENTEROLOGY: ANY NEW CHANGE IN BOWEL CONTROL? NO . GENITOURINARY: ANY NEW CHANGE IN BLADDER CONTROL? NO . IS THERE A CHANCE YOU COULD BE ? NO . HEMATOLOGY/LYMPH: DO YOU TAKE ANY BLOOD THINNERS? (FOR EXAMPLE- COUMADIN, PLAVIX, AGGRENOX, PLATEL, PRADAXA, OR XARELTO) NO . WHEN WAS YOUR LAST DOSE? DATE: TIME: . NEUROLOGY: HAVE YOU FALLEN IN THE PAST 12 MONTHS? NO . OTHER NEW NUMBNESS OR PAIN PATTERNS NOT MENTIONED NO . CARDIOLOGY: DO YOU HAVE A PACEMAKER OR DEFIBRILLATOR? NO; DOES HAVE DORSAL COLUMN STIMULATOR . RESPIRATORY: HAVE YOU BEEN SICK IN THE PAST WEEK? NO . FEVER NO . FLU LIKE SYMPTOMS? NO . COUGH NO . INTEGUMENTARY: DO YOU HAVE ANY RASHES OR OPEN SORES? NO . ALLERGIC/IMMUNO: ARE YOU ALLERGIC TO IV DYE? NO . ANY NEW ALLERGIES? NO . PSYCHIATRIC: DO YOU HAVE THOUGHTS OF HURTING YOURSELF OR SOMEONE ELSE? NO . ARE YOU ABUSED, NEGLECTED, OR IN AN UNSAFE ENVIRONMENT? NO . ENDOCRINOLOGY: ARE YOU DIABETIC? NO . OTHER: DO YOU NEED ANY PRESCRIPTIONS? NO . IF YES, PLEASE LIST: ____ . ANY NEW PROBLEMS WITH YOUR MEDICATIONS? NO . WHEN DID YOU LAST EAT? ____ . WHEN DID YOU LAST DRINK? ____ . WHAT DID YOU LAST DRINK? ____ . NAME OF PERSON DRIVING YOU HOME? ____ . DO YOU HAVE ANY OTHER QUESTIONS OR CONCERNS YES - RIGHT UPPER BACK PAIN POST PROCEDURE . VITAL SIGNS WT 247.8 LBS, HT 72 IN, BMI 33.60 INDEX, BP 110/60 MM HG, HR 66 /MIN, RR 18 /MIN, TEMP 96.6 F, OXYGEN SAT % 97%, SAFE IN ENV? (Y/N) YES, NA INITIALS WY 09:32, REVIEWED BY: KARTIK. EXAMINATION GENERAL EXAMINATION: GENERALNO ACUTE DISTRESS, WELL NOURISHED AND HYDRATED. PSYCHAPPROPRIATE MOOD AND AFFECT . LUNGS:CLEAR TO AUSCULTATION BILATERALLY, NO WHEEZES, RHONCHI, RALES. HEART:NO MURMURS, REGULAR RATE AND RHYTHM. THORACIC SPINE:TENDERNESS WITH PALPATION OVER THORACIC MID AND LOWER PARASPINALS LEFT GREATER THAN RIGHT. PAIN IS AGGRAVATED IN THIS REGION WITH RANGE OF JOINT MOTION OF THE SPINE. . DIAGNOSTIC TESTS REVIEWEDCT OF THORACIC AND LUMBAR SPINE 11/2019 . ASSESSMENTS OTHER CHRONIC PAIN - G89.29 (PRIMARY) PAIN IN THORACIC SPINE - M54.6 TREATMENT OTHER CHRONIC PAIN NOTES: SIGN RECORDS RELEASE FOR [facility] NEUROLOGY ALL SPINE IMAGING FROM 2014 TO PRESENT.FOLLOW UP WITH DR SOTELO TO REVIEW IMAGING/DICUSS DCS FOR THORACIC PAIN/RECOMMEND INTERVENTIONAL THERAPY. PROCEDURE CODES FA211 ESTABILISHED PATIENT [facility] CHARGE DISPOSITION & COMMUNICATION FOLLOW UP DR SOTELO-THORACIC PAIN/DCS-HAVE PATIENT SIGN RECORDS RELEASE FOR IMAGING NO CO NEUROLOGY (REASON: NECK PAIN/THORACIC PAIN/DCS) ELECTRONICALLY SIGNED BY MIKEL OLIVA ON 01/16/2020 AT 02:49 PM EDT DISCLAIMER : THIS IS A VISIT SUMMARY EXTRACTED FROM THE [employer] CHART. IT IS NOT A COPY OF THE [employer] PROGRESS NOTE. BIANCA
== END ==
LOC: M PAIN 09:00
PROVIDERS: ATTEND Nurse Practitioner Family
DX: G89.29 Other chronic pain (principal); M54.6 Pain in thoracic spine; I10 Essential (primary) hypertension; M10.9 Gout, unspecified; G47.30 Sleep apnea, unspecified; K21.9 Gastro-esophageal reflux disease without esophagitis; G47.00 Insomnia, unspecified; K44.9 Diaphragmatic hernia without obstruction or gangrene; Z79.891 Long term (current) use of opiate analgesic; Z79.899 Other long term (current) drug therapy; Z88.8 Allergy status to other drugs, medicaments and biological substances; Z91.048 Other nonmedicinal substance allergy status

== ENCOUNTER → 2020-02-11 | Outpatient (CLI) | payer OTHER ==
[~2020-02-11] MED LIST changes: +COLC0.6T47; -COLC1TAB13
--- NOTE | 2020-02-26 04:37 | ECWPNPC ---
PATIENT NAME: CHUNG MAYERS : 1985 GENDER: MALE VISIT DATE: 02/11/2020 DISCHARGE DATE: 02/11/20 1621 VISIT LOCKED DATE TIME: PHYSICIAN: JAVIER SOTELO MD RESOURCE: JAVIER SOTELO MD REASON FOR APPOINTMENT 1. NECK PAIN/THORACIC PAIN/DCS HISTORY OF PRESENT ILLNESS GENERAL: 34-YEAR-OLD MALE PATIENT WITH A HISTORY OF CHRONIC THORACIC PAIN. THE PATIENT DESCRIBES THE PAIN ACHING, BURNING, SHARP AND STABBING WITH A PAIN SCORE RANGING FROM 3-7/10 DEPENDING ON PHYSICAL ACTIVITY. THE PAIN IN THE THORACIC AREA INCREASES WITH ACTIVITIES. WHEN HE HAS THE PAIN, IT RADIATES TO THE SIDES OF THE THORACIC AREA. HE HAS BEEN USING MEDICATIONS BUT THE PAIN PERSISTS. PATIENT DENIES UNEXPLAINABLE WEIGHT LOSS, FEVER, CHILLS, NEW CHANGES ON URINARY OR BOWEL CONTROL. FALL RISK SCREENING: SCREENING :NO FALLS REPORTED IN THE LAST YEAR PAIN SCREENING: PATIENT HAS A COMPLAINT OF ACUTE OR CHRONIC PAIN :YES LOCATION OF PAIN:NECK, BOTH SHOULDERS, UPPER BACK, MID BACK, LOW BACK INTENSITY OF PAIN (SCALE OF 1 TO 10):4 AVERAGE 6-7 IF ACTIVE, 3-4 WHEN INACTIVE WHAT DOES YOUR PAIN FEEL LIKE:ACHING, BURNING, CONTINOUS, SHARP, STABBING, SORE VARIES IN INTENSITY DURATION:CONTINOUS, CONSTANT, AWAKENS FROM SLEEP PAIN IS INCREASED BY: ACTIVITY AND ANYTHING THAT HAS HIM HUNCHED OVER, STANDING OR WALKING FOR A LONG PERIOD OF TIME, LIFTING ON BARIATRIC PATIENTS PAIN IS DECREASED BY: MASSAGE, HEAT SOMETIMES, REST, MEDICATIONS NURSING NOTE: -. PAIN CENTER INTAKE QUESTIONS: DO YOU HAVE A HISTORY OF MRSA? :NO DO YOU TAKE A BLOOD THINNERS? :NO DO YOU HAVE ANY BLEEDING DISORDERS? :NO ANY NEW NUMBNESS OR WEAKNESS IN YOUR LEGS OR ARMS? :NO ANY PACEMAKER,DEFIBRILLATOR, OR DORSAL COLUMN STIMULATOR? :YES DCS C1-2 DO YOU HAVE ANY RASHES OR OPEN SORES? :NO ARE YOU ALLERGIC TO IV DYE? :NO ARE YOU DIABETIC? :NO ANY NEW PROBLEMS WITH YOUR MEDICATIONS? :NO HAVE YOU RECEIVED A VACCINE IN THE PAST 30 DAYS? :NO DO YOU PLAN TO RECEIVE A VACCINE IN THE NEXT 21 DAYS? :YES IF SO WHAT VACCINE AND WHEN? PLANS ON GETTING A FLU SHOT IF AVAILABLE AT [facility]. IT WAS EXPLAINED TO HIM THAT HE SHOULD NOT HAVE ONE 30 DAYS PRIOR TO AND 21 DAYS AFTER A PROCEDURE IF ONE IS SCHEDULED AND HE VERBALIZED UNDERSTANDING. AD DO YOU NEED ANY PRESCRIPTION? :NO DO YOU TAKE ANY IMMUNOSUPPRESSIVE MEDICATIONS? :NO IS THERE A CHANCE YOU COULD BE ? :NO ARE YOU BREAST FEEDING? :NO CURRENT MEDICATIONS TAKING KETOROLAC TROMETHAMINE 30 MG/ML SOLUTION 0.5 ML NEEDED INJECTION EVERY 6 HRS TAKING TELMISARTAN 80 MG TABLET 1 TABLET ORALLY TWICE DAILY TAKING CARVEDILOL 12.5 MG TABLET 1 TABLET ORALLY TWICE A DAY TAKING ZOFRAN 4 MG TABLET 1 TABLET ORALLY EVERY 6 HOURS NEEDED TAKING ALLOPURINOL 300 MG TABLET 1 TABLET ORALLY ONCE A DAY TAKING ZANAFLEX 4 MG TABLET 1 TABLET NEEDED ORALLY THREE TIMES A DAY TAKING MAY USE BACLOFEN 10 MG ORALLY THREE TIMES DAILY NEEDED TAKING ADDERALL 10 MG TABLET 1 TABLET ORALLY EVERY AFTERNOON NEEDED TAKING BELSOMRA 20 MG TABLET 1 TABLET AT BEDTIME NEEDED ORALLY ONCE A DAY TAKING ZOMIG 5 MG TABLET 1 TABLET NEEDED ORALLY ONCE A DAY, CAN REPEAT AFTER TWO HOURS TAKING TOPIRAMATE 25 MG TABLET 1 TABLET ORALLY TWICE A DAY TAKING VITAMIN D (ERGOCALCIFEROL) 1.25 MG (80141 UT) CAPSULE 1 CAPSULE ORALLY EVERY 2 WEEKS TAKING ROSUVASTATIN CALCIUM 40 MG TABLET 1 TABLET ORALLY ONCE A DAY TAKING FENTANYL 50 MCG/HR PATCH 72 HOUR 1 PATCH TO SKIN TRANSDERMAL EVERY 72 HOURS TAKING ADZENYS XR-ODT 6.3 MG TABLET EXTENDED RELEASE DISINTEGRATING 1 TABLET IN THE MORNING ORALLY ONCE A DAY TAKING HYDROMORPHONE HCL 8 MG TABLET DIRECTED ORALLY 4 TIMES A DAY NEEDED TAKING FIORICET 50-325-40 MG TABLET 1 TABLET NEEDED ORALLY EVERY 4 HRS, NOTES: UNSURE OF DOSE TAKING EMGALITY 120 MG/ML SOLUTION AUTO-INJECTOR DIRECTED SUBCUTANEOUS EVERY MONTH NOT-TAKING OXYMORPHONE HCL 5 MG TABLET 1 TABLET 1 HOUR BEFORE OR 2 HOURS AFTER EATING NEEDED ORALLY EVERY 6 HRS PRN NOT-TAKING EMGALITY (300 MG DOSE) 100 MG/ML SOLUTION PREFILLED SYRINGE 3 ML SUBCUTANEOUS EVERY MONTH NOT-TAKING DEXILANT 60 MG CAPSULE DELAYED RELEASE 1 CAPSULE ORALLY ONCE A DAY PRN NOT-TAKING MORPHINE SULFATE 15 MG TABLET 1 TABLET NEEDED ORALLY THREE TIMES DAILY NEEDED NOT-TAKING MYDAYIS 50 MG CAPSULE EXTENDED RELEASE 24 HOUR 1 CAPSULE IN THE MORNING ORALLY ONCE A DAY NOT-TAKING MS CONTIN 15 MG TABLET EXTENDED RELEASE 1 TABLET ORALLY EVERY 12 HRS MEDICATION LIST REVIEWED AND RECONCILED WITH THE PATIENT PAST MEDICAL HISTORY HYPERTENSION HERNIATED DISC CERVIACAL,THORACIC GOUT ADHD SLEEP APNEA GERD BRACHIAL PLEXUS DISORDER SPINAL STENOSIS INSOMNIA TACHY CARDIA HIATAL HERNIA GASTROPARESIS RADICULOPATHY DORSAL COLUMN STIMULATOR MIGRAINES ALLERGIES ADHESIVE ON ICY HOT PATCHES/LIDOCAINE: ANAPHYLAXIS PROVIGIL: UNKNOWN SURGICAL HISTORY DEVIATED SEPTUM 2011 C1-C2 DORSAL COLUMN STIMULATOR 2018 HARJEET RECTAL ABSCESS,FISTULOTOMY AND SPHICTEROTOMY 2015 WISDOM TEETH 2010 FAMILY HISTORY FATHER: ALIVE, STENTS IN LEG, CIRCULATORY ISSUES MOTHER: ALIVE, DIAGNOSED WITH HYPERTENSION SIBLINGS: ALIVE DAUGHTER(S): ALIVE 1 BROTHER(S) . 1DAUGHTER(S) - HEALTHY. DAUGHTER IS AUTISTIC, ADHDDAD HAS CARDIAC ARRHYTHMIAS ? ABLATIONBROTHER WITH CROHN'S. SOCIAL HISTORY GENERAL: TOBACCO USE ARE YOU A:NONSMOKER NEVER SMOKER LATEX QUESTIONNAIRE LATEX ALLERGY : HAVE YOU EVER DEVELOPED ANY TYPE OF REACTION AFTER HANDLING LATEX PRODUCTS SUCH RUBBER GLOVES, CONDOMS, DIAPHRAGMS, BALLOONS, SOCKS, OR UNDERWEAR?NO LATEX ALLERGY : HAVE YOU EVER DEVELOPED ANY TYPE OF REACTION DURING OR AFTER DENTAL APPOINTMENT, VAGINAL/RECTAL EXAMINATION, SURGICAL PROCEDURE, OR ANY OTHER EXPOSURE?NO LATEX RISK : HAVE YOU EVER HAD ANY DIFFICULTY BREATHING OR HIVES AFTER EATING OR HANDLING ANY FRUITS, OR VEGETABLES; SUCH KIWI, BANANAS, STONE FRUITS, OR CHESTNUTSNO LATEX RISK : DO YOU HAVE A PREVIOUS PERSONAL HISTORY OF MORE THAN NINE SURGERIES, SPINA BIFIDA, OR REPEATED CATHERIZATIONS? 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 EXERCISE: WALKS, ACTIVE LIFESTYLE. MARITAL STATUS: . OTHERS AT HOME: SPOUSE, AND STEP SONS. PAIN CLINIC PFS, CLERGY, PUBLIC HEALTH REFERRALS PFS REFERRAL NEEDED?NO CLERGY REFERRAL NEEDED?NO PUBLIC HEALTH REFERRAL NEEDED?NO HAS THE PATIENT BEEN EDUCATED REGARDING HIS/HER PLAN OF CARE?YES HAS THE PATIENT BEEN EDUCATED REGARDING PAIN, THE RISK FOR PAIN, THE IMPORTANCE OF EFFECTIVE PAIN MANAGEMENT, AND THE PAIN ASSESSMENT PROCESS?YES ADVANCE DIRECTIVE ADVANCE DIRECTIVE DISCUSSED WITH PATIENT:YES HILARY IS HEALTH CARE AGENT [phone] HOSPITALIZATION/MAJOR DIAGNOSTIC PROCEDURE SURGERIES REVIEW OF SYSTEMS CONSTITUTIONAL: ANY RECENT FEVER NO . CHILLS NO . WEIGHT CHANGE OF UNKNOWN REASONS NO . GASTROENTEROLOGY: NEW UNEXPLAINABLE CHANGES IN BOWEL CONTROL NO . CONSTIPATION NO . GENITOURINARY: ANY NEW CHANGE IN BLADDER CONTROL? NO . NEUROLOGY: NEW ONSET DIZZINESS OR NEUROLOGICAL CHANGES NOT MENTIONED NO . NEW NUMBNESS OR PAIN PATTERNS NOT MENTIONED AND PERTINENT TO TODAY'S VISIT NO . CARDIOLOGY: NEW CHEST PRESSURE NO . NEW CHEST PAIN NO . RESPIRATORY: UNEXPLAINABLE COUGH NO . NEW SHORTNESS OF BREATH NO . VITAL SIGNS WT 250 LBS, HT 72 IN, BMI 33.90 INDEX, BP 137/85 MM HG, HR 86 /MIN, RR 18 /MIN, TEMP 97.6 F, OXYGEN SAT % 96%, SAFE IN ENV? (Y/N) Y, NA INITIALS AW 1508, REVIEWED BY: Karishma HERNANDEZ RN 1509. EXAMINATION GENERAL EXAMINATION: THE PATIENT IS ALERT, ORIENTED TIMES THREE AND COOPERATIVE. HEART SHOWS REGULAR RHYTHM, NO MURMURS AND NO GALLOPS. LUNGS ARE CLEAR TO AUSCULTATION. THERE ARE PRESENCE OF TRIGGER POINTS IN THE RIGHT AND LEFT THORACIC AREA WITH RESTRICTION OF MOVEMENT PRESENT IN THE BANDS OF TISSUE. CT OF THE THORACIC DATED 11/20/2019 SHOWS SOME SCLEROTIC CHANGES AT T10. ASSESSMENTS PAIN IN THORACIC SPINE - M54.6 (PRIMARY) MYALGIA, OTHER SITE - M79.18 TREATMENT PAIN IN THORACIC SPINE CLINICAL NOTES: I DISCUSSED ALTERNATIVE WITH MR. MAYERS. I WOULD LIKE TO REQUEST AUTHORIZATION FOR TRIGGER POINT INJECTIONS BILATERAL THORACIC. WE TALKED ABOUT DORSAL SPINAL COLUMN STIMULATOR FOR THE THORACIC SPINE. I INFORMED HIM THAT FROM MY EXPERIENCE, THEY DO NOT HELP AXIAL PAIN. I HAVE ENCOURAGED HIM TO TRY TO HAVE HIS CURRENT DORSAL COLUMN STIMULATOR TRY TO HELP WITH HIS THORACIC PAIN. THE PATIENT STATES HE WILL TALK WITH ANNE. IF THE PATIENT DECIDES TO DO THERAPEUTIC FACET BLOCKS, WE SHOULD CONSIDER DOING THEM WITH IV SEDATION DUE TO ANXIETY AND DISCOMFORT ASSOCIATED WITH THE PROCEDURE. THE PATIENT REPORTS UNDERSTANDING AND AGREES WITH THE PLAN. I, MANISH TOPETE, DOCUMENTED THE ABOVE INFORMATION ACTING A SCRIBE FOR DR. SOTELO. I HAVE REVIEWED THE ABOVE DOCUMENT, WRITTEN BY MANISH TOPETE, SLUBBER FRAME CHANGER, AND I VERIFY THAT IT IS ACCURATE. OTHERS NOTES: TRIGGER POINT INJECTION MATERIAL WAS PRINTED. PREVENTIVE MEDICINE PAIN CLINIC TEACHING: PROCEDURE TEACHING PRINTED INFORMATION ON TRIGGER POINT INJECTIONS GIVEN TO AND REVIEWED WITH PATIENT ALONG WITH PRINTED PRE-PROCEDURE INSTRUCTIONS AND PATIENT VERBALIZED UNDERSTANDING OF BOTH. DEPENDING ON THE DATE OF THE PROCEDURE HE WILL HOLD OFF ON GETTING THE FLU SHOT. PROCEDURE CODES FA211 ESTABILISHED PATIENT [facility] CHARGE [id number] OFFICE/OUTPATIENT VISIT EST DISPOSITION & COMMUNICATION FOLLOW UP REQUEST AUTH FOR BILATERAL THORACIC TRIGGER POINTS (REASON: REQUEST AUTH FOR BILATERAL THORACIC TRIGGER POINTS) ELECTRONICALLY SIGNED BY JAVIER SOTELO MD, MD ON 02/25/2020 AT 02:09 PM EST DISCLAIMER : THIS IS A VISIT SUMMARY EXTRACTED FROM THE [employer] CHART. IT IS NOT A COPY OF THE [employer] PROGRESS NOTE. MTDDulce
== END ==
LOC: M PAIN 15:00
PROVIDERS: ATTEND Anesthesiology
DX: M54.6 Pain in thoracic spine (principal); M79.18 Myalgia, other site; I10 Essential (primary) hypertension; M10.9 Gout, unspecified; F90.9 Attention-deficit hyperactivity disorder, unspecified type; G47.30 Sleep apnea, unspecified; K21.9 Gastro-esophageal reflux disease without esophagitis; G43.909 Migraine, unspecified, not intractable, without status migrainosus; Z79.899 Other long term (current) drug therapy; Z88.8 Allergy status to other drugs, medicaments and biological substances; Z91.048 Other nonmedicinal substance allergy status

== ENCOUNTER 2020-04-07 13:35 | Emergency (ER) | payer OTHER ==
[~2020-04-07] VITALS: Ht 188 cm; Wt 114.8 kg
--- OUTSIDE RECORDS SUMMARY | 2020-04-07 13:42 | CCD | Continuity of Care Document ---
Author Author [place] NAPIER P.A.-C. Organization Unknown Address [address] [place] [address] Phone [phone] Problems Active Problems Provider Date Carpal tunnel syndrome Jasiel Gamez M.D. Onset: 03/22/2014 Daily headache Jasiel Gamez M.D. Onset: 03/22/2014 Chronic intractable migraine without aura Malinda Diamond M.D. Onset: 06/19/2019 Chronic tension-type headache Malinda Diamond M.D. Onset: Neck pain Malinda Diamond M.D. Onset: 06/19/2019 Cervico-occipital neuralgia Malinda Diamond M.D. Onset: 06/18 Social History Type Date Description Comments Sex Unknown Tobacco Use Start: Unknown Patient has never smoked Tobacco Use Start: Unknown Patient has never smoked Allergies, Adverse Reactions, Alerts Active Allergies Reaction Severity Comments Date NKDA 03/22/2014 Provigil 06/19/2019 Adhesives 06/19/2019 Medications Active Medications SIG Qnty Indications Ordering Provide r Date Butalbital/Acetaminophen/Caffeine 50-325-40mg Tablets take 1 tablet by mouth at onset of uncon trolled migraine maximum daily dose = 2 14tabs G43.719 Jasiel Gamez M.D. 12/31/2019 Zomig ZMT 5mg Tablets Dispers 1 by mouth at onset of migraine. may repeat once after 2 hours if necessary. 9tabs G43.719 Jasiel Gamez M.D. 12/31/2019 Topamax 25mg Tablets 1 by mouth twice a day 180tabs G43.719 Malinda Diamond M.D. 09/11/2019 Ondansetron 4mg Tablets Dispers 1-2 tabs melted on the tongue bid prn nausea 30tabs Malinda Diamond M.D. 09/11/2019 Emgality 120mg/ml Solution Auto-In ject Inject 120 mg sc once a month 3ml Jasiel Gamez M.D. 07/30/2019 Hydromorphone HCL 8mg Tablets G43.719 Unknown Adderall 10mg Tablets G43.719 Unknown Immunizations Description No Information Available Vital Signs Date Vital Result Comment 12/31/2019 8:38am BP Systolic 118 mmHg BP Diastolic 80 mmHg Heart Rate 76 /min Respiratory Rate 20 /min 06/19/2019 8:56am Respiratory Rate 14 /min Height 74 inches 6'2" Weight 255.00 lb BMI (Body Mass Index) 32.7 kg/m2 [place] Body Weight 190 lb Results Description No Information Available Procedures Description No Information Available Medical Devices Description No Information Available Encounters Type Date Location Provider Dx Diagnosis Office Visit 12/31/2019 8:00a Main office - [place] Dana Eaton.A.-CAdrien G43.719 Chronic migraine w/o aura, intractable, w/o stat migr M54.81 Occipital neuralgia G44.229 Chronic tension-type headach e, not intractable M54.2 Cervicalgia Assessments Date Code Description Provider 03/31/2020 M54.81 Occipital neuralgia Dana Eaton.A.-C. 03/31/2020 G44.229 Chronic tension-type headache, n ot intractable Dana Gonzalez.A.-C. 03/31/2020 G43.719 Chronic migraine wit hout aura, intractable, without status migrainosus Blanca Napier P.A.-C. 03/31/2020 M54.2 Cervicalgia Dana Gonzalez.A.-C. 12/31/2019 G43.719 Chronic migraine wit hout aura, intractable, without status migrainosus Blanca Napier P.A.-C. 12/31/2019 M54.81 Occipital neuralgia Dana Eaton.A.-C. 12/31/2019 G44.229 Chronic tension-type headache, n ot intractable [place] Kirsten Napier P.A.-C. 12/31/2019 M54.2 Cervicalgia Blanca aNpier P.A.-C. 12/18/2019 G43.719 Chronic migraine wit hout aura, intractable, without status migrainosus Blanca Napier P.A.-C. 12/18/2019 M54.81 Occipital neuralgia Blanca ortega P.A.-C. 12/18/2019 G44.229 Chronic tension-type headache, n ot intractable Blanca Napier P.A.-C. 12/18/2019 M54.2 Cervicalgia Blanca Napier P.A.-C. Plan of Treatment No Information Available Functional Status Description No Information Available Mental Status Description No Information Available Referrals Description No Information Available
--- OUTSIDE RECORDS SUMMARY | 2020-04-07 13:42 | CCD | Continuity of Care Document ---
Author Author [place] IVORY P.A.-C. Organization Unknown Address [address] [place] [address] Phone [phone] Problems Active Problems Provider Date Carpal tunnel [...] lb BMI (Body Mass Index) 32.7 kg/m2 [place] Body Weight 190 lb Results Description No Information Available Procedures Description No Information Available Medical Devices Description No Information Available Encounters Type Date Location Provider Dx Diagnosis Office Visit 03/31/2020 9:15a Main office - [place] Dana Eaton.A.-CAdrien M54.81 Occipital neuralgia G44.229 Chronic tension-type headach e, not intractable G43.719 Chronic migraine w/o aura, i ntractable, w/o stat migr M54.2 Cervicalgia Office Visit 12/31/2019 8:00a Main office - [place] Dana Eaton.A.-C. G43.719 Chronic migraine w/o aura, intractable, w/o stat migr M54.81 Occipital neuralgia G44.229 Chronic tension-type headach e, not intractable M54.2 Cervicalgia Assessments Date Code Description Provider 03/31/2020 M54.81 Occipital neuralgia Dana Eaton.A.-CAdrien 03/31/2020 G44.229 Chronic tension-type headache, n ot intractable Casimiro Gonzalez.-CAdrien 03/31/2020 G43.719 Chronic migraine wit hout aura, intractable, without status migrainosus Valentin Gonzalez-CAdrien 03/31/2020 M54.2 Cervicalgia Valentin Gonzalez-CAdrien 12/31/2019 G43.719 Chronic migraine wit hout aura, intractable, without status migrainosus Valentin Gonzalez-C. 12/31/2019 M54.81 Occipital neuralgia Casimiro Eaton.-C. 12/31/2019 G44.229 Chronic tension-type headache, n ot intractable Dana Gonzalez.A.-C. 12/31/2019 M54.2 Cervicalgia Dana Gonzalez.A.-C. 12/18/2019 G43.719 Chronic migraine wit hout aura, intractable, without status migrainosus Dana Gonzalez.A.-C. 12/18/2019 M54.81 Occipital neuralgia Dana Eaton.A.-C. 12/18/2019 G44.229 Chronic tension-type headache, n ot intractable Dana Gonzalez.A.-C. 12/18/2019 M54.2 Cervicalgia Valentin Gonzalez-Sarika Plan of Treatment 03/31/2020 - Casimiro Gonzalez.-Jerome.* M54.81 Occipital neuralgia* Comments:* Improved. * G44.229 Chronic tension-type headache, not intractable* Comments:* Stable. * G43.719 Chronic migraine without aura, intractable, without status migrainosus * Comments:* Continue Topamax and Emgality with Zomig or Fioricet prn. * M54.2 Cervicalgia* Comments:* Follow up with [facility] pain [facility]. * Follow up:* 3 months Functional Status Description No Information Available Mental Status Description No Information Available Referrals Description No Information Available
--- OUTSIDE RECORDS SUMMARY | 2020-04-07 13:43 | CCD ---
Author Author [facility] Organization [facility] Address Unknown Phone Unavailable Care Team Providers Care Tank Processor Name Role Phone Jasmine Vance Unavailable PROBLEMS Type Condition ICD9-CM Code [id number] Code Onset Dates Condition S tatus SNOMED Code Notes Problem Spondylosis without myelopathy or radiculopathy, cervical region M47.812 Active 941487412 Problem Other chronic pain G89.29 Active 05617543 Problem Myalgia, other site M79.18 Active 01573875 Problem Pain in thoracic spine M54.6 Active [id number] ALLERGIES Allergen (clinical drug ingredient) Drug/Non Drug Allergy do cumented on EMR Reaction Allergy Type Onset Date Status adhesive on icy hot patches/lidocaine Anaphylaxis Non Drug Allergy Active modafinil Provigil([facility] Code:[address]-95) unknown Drug Allergy Active ENCOUNTERS from 1984 to 2020-01-16 Encounter Location Date Provider Diagnosis [facility] [address] [place] [id number] Dec, Jasmine Dumonter Other chronic pain G89.29 and Pain in th oracic spine M54.6 IMMUNIZATIONS No Information SOCIAL HISTORY Tobacco Use: Social History Observation Description Date Details (start date - stop date) Never Smoker Sex Assigned At : Social History Observation Description Sex Assigned At Unknown Education: Question Answer Notes Level of Education: Not Finished College Language: Question Answer Notes Languages spoken: [place] Nondenominational: Question Answer Notes Nondenominational 08 [employer] Alcohol Screening: Question Answer Notes Did you have a drink containing alcohol in the past year? Ye s Points 2 Interpretation Negative How many drinks did you have on a typica l day when you were drinking in the past year? 1 or 2 (0 points) How often did you have a drink containing alcohol in t he past year? Two to four times a month (2 points) Tobacco Use: Question Answer Notes Are you a: never smoker never smoker REASON FOR REFERRAL No Information VITAL SIGNS Weight 247.8 lbs Dec, Height 72 in Dec, BMI 33.60 kg/m2 Dec, Heart Rate 66 /min Dec, Respiratory Rate 18 /min Dec, Temperature 96.6 degrees Fahrenheit Dec, Oximetry 97% Dec, Blood pressure systolic 110 mm Hg Dec, Blood pressure diastolic 60 mm Hg Dec, MEDICATIONS Medication SIG (Take, Route, Frequency, Duration) Start Date En d Date Status MS Contin 15 MG 1 tablet Orally every 12 hrs Not-Taking Adzenys XR-ODT 6.3 MG 1 tablet in the morning Orally Once a day Active Rosuvastatin Calcium 40 MG 1 tablet Orally Once a day for 30 day(s) Active Zofran 4 MG 1 tablet Orally every 6 hours as needed Active Oxymorphone HCl 5 MG 1 tablet 1 hour before or 2 hours after eating as needed Orally every 6 hrs PRN Not-Taking Telmisartan 80 MG 1 tablet Orally Once a day for 30 day(s) Active Allopurinol 300 MG 1 tablet Orally Once a day Active May Use Baclofen 10 mg orally twice a day as needed Active Zanaflex 4 MG 1 tablet as needed Orally Three times a day Active Zomig 5 MG 1 tablet as needed Orally Once a day, can repeat after two hours Active Dexilant 60 MG 1 capsule Orally Once a day prn Not-Taking Emgality 120 MG/ML as directed Subcutaneous every month Active Morphine Sulfate 15 MG 1 tablet as needed Orally three times janneth ly as needed Not-Taking Topiramate 25 MG 1 tablet Orally twice a day Active Hydromorphone HCl 8 MG as directed Orally 4 times a day as needed Active Vitamin D (Ergocalciferol) 1.25 MG (71766 UT) 1 capsule Orally e very 2 weeks Active Carvedilol 12.5 MG 1 tablet Orally Twice a day for 30 day(s) Active Fioricet 50-325-40 MG 1 tablet as needed Orally every 4 hrs Active Ketorolac Tromethamine 30 MG/ML 0.5 ml as needed Injection every 6 hrs Active Emgality (300 MG Dose) 100 MG/ML 3 ml Subcutaneous every month Not-Taking Fentanyl 50 MCG/HR 1 patch to skin Transdermal every 72 hours Active Belsomra 20 MG 1 tablet at bedtime as needed Orally Once a day Active Adderall 10 MG 1 tablet Orally every afternoon as needed Active Mydayis 50 MG 1 capsule in the morning Orally Once a day Not-Taking PROCEDURES No Information RESULTS No Results REASON FOR VISIT REVIEW CT MEDICAL (GENERAL) HISTORY Type Description Date Medical History hypertension Medical History herniated disc cerviacal,thoracic Medical History gout Medical History ADHD Medical History sleep apnea Medical History Gerd Medical History brachial plexus disorder Medical History spinal stenosis Medical History insomnia Medical History tachy cardia Medical History hiatal hernia Medical History gastroparesis Medical History radiculopathy Medical History dorsal column stimulator Surgical History Deviated septum 2011 Surgical History C1-C2 dorsal column stimulator 2017 Surgical History jeff rectal abscess,fistulotomy and sphi cterotomy 2014 Surgical History wisdom teeth 2010 Hospitalization History surgeries Goals Section No Information Health Concerns No Information MEDICAL EQUIPMENT No Information MENTAL STATUS No Information FUNCTIONAL STATUS No Information ASSESSMENTS Encounter Date Diagnosis Notes Dec, Other chronic pain (ICD-10 - G89.29) Dec, Pain in thoracic spine (ICD-10 - M54.6) PLAN OF TREATMENT Treatment Notes Assessment Notes Clinical Notes Other chronic pain Sign records release for [facility] Neurology all spine imaging from 2014 to present.Follow up with Dr Ya to review imaging/dicuss DCS for thoracic pain/recommend interventional therapy. Next Appt Details Dr Ya-thoracic pain/DCS-Have patie nt sign records release for imaging No Co Neurology Reason:neck pain/thoracic pain/DCS Provider Name:Maury Ya, 2020-02-11 03:00:00 PM, [address] [place], [address], Follow Up:Dr Ya-thoracic pain/DCS-Have patient sign records release for imaging No Co Neurologyneck pain/thoracic pain/DCS Insurance Providers Payer Name Payer Address Payer Phone Insured Name Patient Relati onship to Insured Coverage Start Date Coverage End Date 'S ADMINSTRATION ([place]) NON VA CARE [facility] [id number] [place] [id number] [employer] self
--- OUTSIDE RECORDS SUMMARY | 2020-04-07 13:43 | CCD ---
Author Author [facility] Organization [facility] Address Unknown Phone Unavailable Care Team Providers Care Certified Ophthalmic Surgical Assistant Name Role Phone YAZOL, Chio HASSAN MD Unavailable Unavailable ANTECOL, Chio HASSAN MD Unavailable Unavailable ANTECOL, Chio HASSAN MD Unavailable Unavailable ANTECOL, Chio HASSAN MD Unavailable Unavailable ANTECOL, Chio HASSAN MD Unavailable Unavailable ANTECOL, Chio HASSAN MD Unavailable Unavailable ANTECOL, Chio HASSAN MD Unavailable Unavailable ANTECOLChio MD Unavailable Unavailable ANTECOLChio MD Unavailable Unavailable ANTECOLChio MD Unavailable Unavailable ANTECOLChio MD Unavailable Unavailable ANTECOL, Chio HASASN MD Unavailable Unavailable ANTECOLChio MD Unavailable Unavailable ANTECOLChio MD Unavailable Unavailable ANTECOLChio MD Unavailable Unavailable ANTECOLChio MD Unavailable Unavailable ANTECOLChio MD Unavailable Unavailable ANTECOLChio MD Unavailable Unavailable ANTECOLChio MD Unavailable Unavailable ANTECOLChio MD Unavailable Unavailable ANTECOLChio MD Unavailable Unavailable ANTECOLChio MD Unavailable Unavailable ANTECOLChio MD Unavailable Unavailable ANTECOLChio MD Unavailable Unavailable ANTECOLChio MD Unavailable Unavailable ANTECOLChio MD Unavailable Unavailable ANTECOLChio MD Unavailable Unavailable ANTECOLChio MD Unavailable Unavailable ANTECOLChio MD Unavailable Unavailable ANTECOLChio MD Unavailable Unavailable ANTECOLChio MD Unavailable Unavailable ANTECOL, Chio HASSAN MD Unavailable Unavailable ANTECOL, Chio HASSAN MD Unavailable Unavailable ANTECOL, Chio HASSAN MD Unavailable Unavailable ANTECOL, Chio HASSAN MD Unavailable Unavailable ANTECOL, Chio HASSAN MD Unavailable Unavailable ANTECOL, Chio HASSAN MD Unavailable Unavailable ANTECOL, Chio HASSAN MD Unavailable Unavailable ANTECOL, Chio HASSAN MD Unavailable Unavailable ANTECOL, Chio HASSAN MD Unavailable Unavailable ANTECOL, Chio HASSAN MD Unavailable Unavailable ANTECOL, hCio HASSAN MD Unavailable Unavailable ANTECOL, Chio HASSAN MD Unavailable Unavailable ANTECOL, Chio HASSAN MD Unavailable Unavailable ANTECOL, Chio HASSAN MD Unavailable Unavailable ANTECOL, Chio HASSAN MD Unavailable Unavailable ANTECOL, Chio HASSAN MD Unavailable Unavailable ANTECOL, Chio HASSAN MD Unavailable Unavailable ANTECOL, Chio HASSAN MD Unavailable Unavailable ANTECOL, Chio HASSAN MD Unavailable Unavailable ANTECOL, Chio HASSAN MD Unavailable Unavailable ANTECOL, Chio HASSAN MD Unavailable Unavailable ANTECOL, Chio HASSAN MD Unavailable Unavailable ANTECOL, Chio HASSAN MD Unavailable Unavailable ANTECOL, Chio HASSAN MD Unavailable Unavailable Jumalon, M Opal GARMENT STEAMER Unavailable Unavailable Jumalon, M Opal GARMENT STEAMER Unavailable Unavailable Jumalon, M Opal GARMENT STEAMER Unavailable Unavailable Jumalon, M Opal GARMENT STEAMER Unavailable Unavailable Jumalon, M Opal GARMENT STEAMER Unavailable Unavailable Jumalon, M Opal GARMENT STEAMER Unavailable Unavailable Jumalon, M Opal GARMENT STEAMER Unavailable Unavailable Jumalon, M Opal GARMENT STEAMER Unavailable Unavailable Jumalon, M Opal GARMENT STEAMER Unavailable Unavailable Jumalon, M Opal GARMENT STEAMER Unavailable Unavailable Jumalon, M Opal GARMENT STEAMER Unavailable Unavailable Jumalon, M Opal GARMENT STEAMER Unavailable Unavailable Jumalon, M Opal GARMENT STEAMER Unavailable Unavailable Jumalon, M Opal GARMENT STEAMER Unavailable Unavailable Jumalon, M Opal GARMENT STEAMER Unavailable Unavailable Jumalon, M Opal GARMENT STEAMER Unavailable Unavailable Jumalon, M Opal GARMENT STEAMER Unavailable Unavailable Jumalon, M Opal GARMENT STEAMER Unavailable Unavailable Jumalon, M Opal GARMENT STEAMER Unavailable Unavailable Jumalon, M Opal GARMENT STEAMER Unavailable Unavailable Jumalon, M Opal GARMENT STEAMER Unavailable Unavailable Jumalon, M Opal GARMENT STEAMER Unavailable Unavailable Jumalon, M Opal GARMENT STEAMER Unavailable Unavailable Jumalon, M Opal GARMENT STEAMER Unavailable Unavailable Jumalon, M Opal GARMENT STEAMER Unavailable Unavailable Jumalon, M Opal GARMENT STEAMER Unavailable Unavailable JumalonMedardo Opal GARMENT STEAMER Unavailable Unavailable JumarciaonMedardo Opal GARMENT STEAMER Unavailable Unavailable Jorge Alberto Del Rosario MD Unavailable Unavailable Miguel Ángel, Jorge Alberto Ronny HUTTON Unavailable Unavailable Miguel Ángel, Jorge Alberto Ronny HUTTON Unavailable Unavailable Miguel Ángel, Jorge Alberto Ronny MD Unavailable Unavailable Miguel Ángel, Jorge Alberto Ronny MD Unavailable Unavailable Miguel Ángel, Jorge Alberto Ronny Unavailable Unavailable Miguel Ángel, Jorge Alberto Ronny HUTTON Unavailable Unavailable Miguel Ángel, Jorge Alberto Ronny HUTTON Unavailable Unavailable Miguel Ángel, Jorge Alberto Ronny HUTTON Unavailable Unavailable Miguel Ángel, Jorge Alberto Ronny HUTTON Unavailable Unavailable Miguel Ángel, Jorge Alberto Ronny HUTTON Unavailable Unavailable Miguel Ángel, Jorge Alberto Ronny MD Unavailable Unavailable Miguel Ángel, Jorge Alberto Ronny MD Unavailable Unavailable Miguel Ángel, Jorge Alberto Ronny MD Unavailable Unavailable Miguel Ángel, Jorge Alberto Ronny MD Unavailable Unavailable Miguel Ángel, Jorge Alberto Ronny HUTTON Unavailable Unavailable Miguel Ángel, Jorge Alberto Ronny HUTTON Unavailable Unavailable Miguel Ángel, Jorge Alberto Ronny HUTTON Unavailable Unavailable Miguel Ángel, Jorge Alberto Ronny HUTTON Unavailable Unavailable Miguel Ángel, Jorge Alberto Ronny HUTTON Unavailable Unavailable Miguel Ángel, Jorge Alberto Ronny MD Unavailable Unavailable Miguel Ángel, Jorge Alberto Ronny MD Unavailable Unavailable Miguel Ángel, Jorge Alberto Ronny MD Unavailable Unavailable Miguel Ángel, Jorge Alberto Ronny HUTTON Unavailable Unavailable Miguel Ángel, Jorge Alberto Ronny HUTTON Unavailable Unavailable Miguel Ángel, Jorge Alberto Ronny HUTTON Unavailable Unavailable Miguel Ángel, Jorge Alberto Ronny HUTTON Unavailable Unavailable Miguel Ángel, Jorge Alberto Ronny HUTTON Unavailable Unavailable Miguel Ángel, Jorge Alberto Ronny HUTTON Unavailable Unavailable Miguel ÁngelJorge Alberto Ronny HUTTON Unavailable Unavailable Miguel ÁngelJorge Alberto Ronny HUTTON Unavailable Unavailable Miguel Ángel, Jorge Alberto Ronny HUTTON Unavailable Unavailable Miguel ÁngelJorge Alberto Ronny HUTTON Unavailable Unavailable Miguel Ángel, Jorge Alberto Ronny HUTTON Unavailable Unavailable Miguel Ángel, Jorge Alberto Ronny HUTTON Unavailable Unavailable Miguel Ángel, Jorge Alberto Ronny HUTTON Unavailable Unavailable Miguel Ángel, Jorge Alberto Ronny HUTTON Unavailable Unavailable Miguel Ángel, Jorge Alberto Ronny HUTTON Unavailable Unavailable Trickey, J Blanca PA Unavailable Unavailable Trickey, J Blanca PA Unavailable Unavailable Trickey, J Blanca PA Unavailable Unavailable Trickey, J Blanca PA Unavailable Unavailable Trickey, J Blanca PA Unavailable Unavailable Trickey, J Blanca PA Unavailable Unavailable Trickey, J Blanca PA Unavailable Unavailable Trickey, J Blanca PA Unavailable Unavailable Trickey, J Blanca PA Unavailable Unavailable Trickey, J Blanca PA Unavailable Unavailable Trickey, J Blanca PA Unavailable Unavailable Trickey, J Blanca PA Unavailable Unavailable Trickey, J Blanca PA Unavailable Unavailable Trickey, J Blanca PA Unavailable Unavailable Trickey, J Blanca PA Unavailable Unavailable Trickey, J Blanca PA Unavailable Unavailable Trickey, J Blanca PA Unavailable Unavailable Trickey, J Blanca PA Unavailable Unavailable Trickey, J Blanca PA Unavailable Unavailable Trickey, J Blanca PA Unavailable Unavailable Trickey, J Blanca PA Unavailable Unavailable Trickey, J Blanca PA Unavailable Unavailable Trickey, J Blanca PA Unavailable Unavailable Trickey, J Blanca PA Unavailable Unavailable Trickey, J Blanca PA Unavailable Unavailable Trickey, J Blanca PA Unavailable Unavailable Trickey, J Blanca PA Unavailable Unavailable Trickey, J Blanca PA Unavailable Unavailable Trickey, J Blanca PA Unavailable Unavailable Trickey, J Blanca PA Unavailable Unavailable Trickey, J Blanca PA Unavailable Unavailable Trickey, J Blanca PA Unavailable Unavailable Trickey, J Blanca PA Unavailable Unavailable Trickey, J Blanca PA Unavailable Unavailable Trickey, J Blanca PA Unavailable Unavailable Trickey, J Blanca PA Unavailable Unavailable Trickey, J Blanca PA Unavailable Unavailable Trickey, J Blanca PA Unavailable Unavailable Trickey, J Blanca PA Unavailable Unavailable Trickey, J Blanca PA Unavailable Unavailable Trickey, J Blanca PA Unavailable Unavailable Trickey, J Blanca PA Unavailable Unavailable Trickey, J Blanca PA Unavailable Unavailable Trickey, J Blanca PA Unavailable Unavailable Trickey, J Blanca PA Unavailable Unavailable Trickey, J Blanca PA Unavailable Unavailable Trickey, J Blanca PA Unavailable Unavailable Trickey, J Blanca PA Unavailable Unavailable Trickey, J Blanca PA Unavailable Unavailable Trickey, J Blanca PA Unavailable Unavailable Trickey, J Blanca PA Unavailable Unavailable Trickey, J Blanca PA Unavailable Unavailable Re-disclosure Warning The records that you are about to access may contain information from federally-assisted alcohol or drug abuse programs. If such information is present, then the following federally mandated warning applies: This information has been disclosed to you from records protected by federal confidentiality rules (42 CFR part 2). The federal rules prohibit you from making any further disclosure of this information unless further disclosure is expressly permitted by the written consent of the person to whom it pertains or as otherwise permitted by 42 CFR part 2. A general authorization for the release of medical or other information is NOT sufficient for this purpose. The Federal rules restrict any use of the information to criminally investigate or prosecute any alcohol or drug abuse patient.The records that you are about to access may contain highly sensitive health information, the redisclosure of which is protected by Article 27-F of the [facility] Public [facility] law. If you continue you may have access to information: Regarding HIV / AIDS; Provided by facilities licensed or operated by the [facility] Office of Mental Health; or Provided by the [facility] Office for People With Developmental Disabilities. If such information is present, then the following [facility] mandated warning applies: This information has been disclosed to you from confidential records which are protected by state law. State law prohibits you from making any further disclosure of this information without the specific written consent of the person to whom it pertains, or as otherwise permitted by law. Any unauthorized further disclosure in violation of state law may result in a fine or intermediate sentence or both. A general authorization for the release of medical or other information is NOT sufficient authorization for further disc losure. Allergies and Adverse Reactions Type Description Substance Reaction Status Data Source(s ) Drug allergy Provigil modafinil unknown Active eCW1 ([facility] adhesive on icy hot patches/lidocaine adhesive on icy hot pa tches/lidocaine adhesive on icy hot patches/lidocaine Anaphylaxis Active eC W1 ([facility]) adhesive on icy hot patches/lidocain adhesive on icy hot pat ches/lidocain adhesive on icy hot patches/lidocain Anaphylaxis Active eCW 1 ([facility]) adhesive on icy hot patches/lidocain adhesive on icy hot pat ches/lidocain adhesive on icy hot patches/lidocain Anaphylaxis Active eCW 1 ([facility]) adhesive on icy hot patches/lidocain adhesive on icy hot pat ches/lidocain adhesive on icy hot patches/lidocain Anaphylaxis Active eCW 1 ([facility]) adhesive on icy hot patches/lidocain adhesive on icy hot pat ches/lidocain adhesive on icy hot patches/lidocain Anaphylaxis Active eCW 1 ([facility]) adhesive on icy hot patches/lidocain adhesive on icy hot pat ches/lidocain adhesive on icy hot patches/lidocain Anaphylaxis Active eCW 1 ([facility]) Family History Family Member Name Family Member Gender Family Member Status Date o f Status Description Data Source(s) Unknown Unknown Problem MEDENT ([facility]) mother Unknown Female Problem MEDENT ([facility]) Unknown Female Problem MEDENT ([facility]) Unknown Female Problem MEDENT ([facility]) Unknown Female Problem MEDENT ([facility]) Unknown Female Problem MEDENT ([facility]) Encounters Encounter Providers Location Date Indications Data Source(s ) Outpatient Attender: Blanca GRIFFIN Main office - [facility] 03/31/2020 08:15:00 AM EST MEDENT ([facility] [place] [address] [address] 02/11/2020 12:00:00 AM EST eCW1 ([facility]) [place] [address] [address] 01/14/2020 12:00:00 AM EDT eCW1 ([facility]) Outpatient Attender: Blanca GRIFFIN Main office - [facility] 12/31/2019 08:00:00 AM EDT MEDENT ([facility] ) Outpatient Attender: Blanca GRIFFIN Main office - [facility] 09/11/2019 01:00:00 PM EDT MEDENT ([facility] ) [facility] [address] [place] [phone] 08/27/2019 12:00:00 AM EDT eCW1 ([facility]) Outpatient Referrer: Ronny Del Rosario MD 07/31/2019 05:12:00 PM EDT [facility] [address] [place] [address] 07/31/2019 12:00:00 AM EDT eCW1 ([facility]) [facility] [address] [place] [address] 07/23/2019 12:00:00 AM EDT eCW1 ([facility]) [facility] [address] [place] [address] 06/20/2019 12:00:00 AM EDT eCW1 ([facility]) [facility] [address] [place] [address] 06/06/2019 12:00:00 AM EDT eCW1 ([facility]) [facility] [address] [place] [address] 04/30/2019 12:00:00 AM EST [facility]CW1 [facility] Opal Shah, FACULTY DEAN: [address], [place] [address], Ph. Attender: Opal Gasparramsey [facility] Office 04/25/2019 12:00:00 AM EST ATHE NA ([facility]) Outpatient Attender: MO BULLOCK MD Main Office 04/24/2019 07:00:00 AM EST SHANON ([facility]) Outpatient Referrer: Ronny Del Rosario MD 04/20/2019 01:42:00 PM EST [facility] [address] [place] [address] 04/16/2019 12:00:00 AM EST eCW1 ([facility]) [facility] [address] [place] [address] 04/13/2019 12:00:00 AM EST eCW1 ([facility]) Opal Shah, FACULTY DEAN: [address], [place] [address], Ph. Attender: Opal Alyssa [facility] Office 03/28/2019 12:00:00 AM EST ATHE NA ([facility]) Opal Shah, FACULTY DEAN: [address], [place] [address], Ph. Attender: Opal Alyssa [facility] 03/28/2019 12:00:00 AM EST ATHE NA ([facility]) [facility] [address] [place] [phone] 03/09/2019 12:00:00 AM EST eCW1 [facility] [address] [place] [address] 03/07/2019 12:00:00 AM EST eCW1 ([facility]) Opal Shah, FACULTY DEAN: [address], [place] [address], Ph. Attender: Opal Shah [facility] 02/28/2019 12:00:00 AM EST MAURICIO ADAIR ([facility]) Opal Shah, FACULTY DEAN: [address], [place] [address], Ph. Attender: Opal Shah [facility] 02/28/2019 12:00:00 AM EST MAURICIO NA ([facility]) Opal Shah, FACULTY DEAN: [address], [place] [address], Ph. Attender: Opal [facility] 02/28/2019 12:00:00 AM EST MAURICIO NA ([facility]) Outpatient Referrer: Ronny Del Rosario MD 02/12/2019 09:13:00 PM [facility] Medications Medication Brand Name Start Date Product Form Dose Route Admi nistrative Instructions Pharmacy Instructions Status Indications Reaction Description Data Source(s) Acetaminophen 325 MG / butalbital 50 MG / Caffeine 40 MG Oral Tablet Butalbital/Acetaminophen/Caffeine 12/31/2019 12:00:00 AM EDT ORAL active MEDENT ([facility]) zolmitriptan 5 MG Disintegrating Oral Tablet [Zomig] Zomig Z MT 12/31/2019 12:00:00 AM EDT ORAL active M EDENT ([facility] ) 10 mg 09/26/2019 12:00:00 AM EDT tablet 120 TAKE 1/2-1 TABLET BY MOUTH FOUR TIMES A DAY NEEDED FOR PAIN MAXIMUM DAILY DOSE =4 TAKE 1/2-1 TABLET BY MOUTH FOUR TIMES A DAY NEEDED FOR PAIN MAXIMUM DAILY DOSE =4 SOLD: 09/26/2019 [facility] Ondansetron 4 MG Disintegrating Oral Tablet Ondansetron 09/11/2019 12:00:00 AM EDT active MEDENT ([facility] topiramate 25 MG Oral Tablet [Topamax] Topamax 09/11/2019 12:00:00 AM EDT ORAL active MEDENT ([facility]) 5 mg 09/06/2019 12:00:00 AM EDT tablet 120 TAKE ONE TABLET BY MOUTH FOUR TIMES A DAY NEEDED FOR PAIN MAXIMUM DAILY DOSE = FOUR TABLETS TAKE ONE TABLET BY MOUTH FOUR TIMES A DAY NEEDED FOR PAIN MAXIMUM DAILY DOSE = FOUR TABLETS SOLD: 09/06/2019 [facility] Emgality Emgality 07/30/2019 12:00:00 AM EDT activ e MEDENT ([facility] ) Emgality Emgality 06/19/2019 12:00:00 AM EDT compl eted MEDENT ([facility] ) Emgality Emgality 06/19/2019 12:00:00 AM EDT compl eted MEDENT ([facility] ) 72 HR Fentanyl 0.025 MG/HR Transdermal System FENTANYL 05/26/2019 12:00:00 AM EST patch 72 hour 10 APPLY 1 PATCH EV GREGORIO 3 DAYS MAXIMUM DAILY DOSE = 1 EVERY 3 DAYS APPLY 1 PATCH EVERY 3 DAYS MAXIMUM DAILY DOSE = 1 EVER Y 3 DAYS SOLD: 05/26/2019 [facility] Morphine Sulfate 15 MG Oral Tablet Morphine Sulfate 04/23/2019 1 2:00:00 AM EST ORAL active MEDENT ( [facility]) 80 mg 02/09/2019 12:00:00 AM EST tablet 90 TAKE ONE TABLET BY MOUTH EVERY DAY TAKE ONE TABLET BY MOUTH EVERY DAY SOLD: 02/09/2019 [facility] telmisartan 80 MG Oral Tablet Telmisartan 02/08/2019 12:00:00 AM EST ORAL active MEDENT ([facility]) Morphine Sulfate 30 MG Extended Release Oral Tablet [MS Cont in] MS Contin 01/15/2019 12:00:00 AM EDT ORAL completed MEDENT ([facility]) Benzoyl Peroxide 50 MG/ML Medicated Liqu id Soap benzoyl peroxide 5 % topical cleanser benzoyl peroxide 5 % topical cleanser completed Benzoyl Peroxide 50 MG/ML Medicated Liquid Soap SHIVA ([facility]) Benzoyl Peroxide 50 MG/ML Medicated Liqu id Soap benzoyl peroxide 5 % topical cleanser benzoyl peroxide 5 % topical cleanser completed Benzoyl Peroxide 50 MG/ML Medicated Liquid Soap SHIVA ([facility]) Hydrocortisone 10 MG/ML Topical Cream hydrocortisone 1 % topical cream hydrocortisone 1 % topical cream compl eted Hydrocortisone 10 MG/ML Topical Cream SHIVA ([facility]) Hydrocortisone 10 MG/ML Topical Cream hydrocortisone 1 % topical cream hydrocortisone 1 % topical cream compl eted Hydrocortisone 10 MG/ML Topical Cream SHIVA ([facility]) Hydrocortisone 10 MG/ML Topical Cream hydrocortisone 1 % topical cream hydrocortisone 1 % topical cream compl eted Hydrocortisone 10 MG/ML Topical Cream SHIVA ([facility]) Benzoyl Peroxide 50 MG/ML Medicated Liqu id Soap benzoyl peroxide 5 % topical cleanser benzoyl peroxide 5 % topical cleanser completed Benzoyl Peroxide 50 MG/ML Medicated Liquid Soap SHIVA ([facility]) zolmitriptan 5 MG Oral Tablet zolmitriptan 5 mg tablet zolmi triptan 5 mg tablet completed zolmitriptan 5 MG Oral Tablet SHIVA ([facility]) Insurance Providers Payer name Policy type / Coverage type Policy ID Covered green party ID Covered green party's relationship to hidalgo Policy [place] Plan Information 'S ADMINISTRATION [id number] SP [id number] [employer] [place] CCN [id number] SP [id number] [employer] [place] O [id number] S [id number] O [id number] S [id number] OTHER B [id number] Self [id number] [facility] [id number] SP [id number] WEST O [id number] S [id number] HUMANA [place] O [id number] S [id number] EAST HUMANA [id number] SP [id number] EAST HUMANA [id number] SP [id number] OTHER B [id number] Self [id number] OTHER B [id number] Self [id number] ACTIVE DUTY [id number] SP [id number] Prime Commercial [id number] Self [id number] U [id number] Self [id number] [employer] 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 Self Health Net Federal Prime Health Maintenance Organization (HMO) Self ACTIVE DUTY [id number] SP [id number] ACTIVE DUTY [id number] SP [id number] [facility] O [id number] S [id number] [facility] 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 Self Problems, Conditions, and Diagnoses Code Display Name Description Problem Type Effective Dates Data Source(s) 48516720 Cervico-occipital neuralgia Cervico-occipital neuralgi a Problem 06/19/2019 12:00:00 AM EDT MEDENT ([facility] ) [id number] Neck pain Neck pain Problem 06/19/2019 12:00:00 AM ED T MEDENT ([facility]) [id number] Chronic tension-type headache Chronic tension-type hea dache Problem 06/19/2019 12:00:00 AM EDT MEDENT ([facility] ) [id number] Chronic intractable migraine without aur a Chronic intractable migraine without aura Problem 06/19/2019 12:00:00 AM EDT MEDENT ([facility] ) [id number] Dietary management surveillance Dietary manageme nt surveillance Problem 04/24/2019 12:00:00 AM EST MEDENT ([facility] [id number] Obesity Obesity Problem 04/24/2019 12:00:00 AM ES T MEDENT ([facility]) [id number] Hyperlipidemia Hyperlipidemia Problem 04/24/2019 12:00: 00 AM EST MEDENT ([facility]) [id number] Essential hypertension Essential hypertension Problem 04/24/2019 12:00:00 AM EST MEDENT ([facility]) 74104871 Chest pain Chest pain Problem 04/24/2019 12:00:00 AM ES T MEDENT ([facility]) [id number] Premature beats Premature beats Problem 04/24/2019 12:0 0:00 AM EST MEDENT ([facility]) M54.6 [id number] Pain in thoracic spine Problem 03/08/20 12:00:00 AM EST eCW1 ([facility]) M79.18 [id number] Myalgia, other site Problem 03/08/2019 12:00 :00 AM EST eCW1 ([facility]) G89.29 [id number] Other chronic pain Problem 03/08/2019 12:00: 00 AM EST eCW1 ([facility]) M47.812 [id number] Spondylosis without myelopathy or radiculopathy, cervical region Problem 03/08/2019 12:00:00 AM EST eCW1 ([facility]) M54.6 [id number] Pain in thoracic spine Problem 03/08/20 12:00:00 AM EST eCW1 ([facility]) M79.18 [id number] Myalgia, other site Problem 03/08/2019 12:00 :00 AM EST eCW1 ([facility]) G89.29 [id number] Other chronic pain Problem 03/08/2019 12:00: 00 AM EST eCW1 ([facility]) M47.812 [id number] Spondylosis without myelopathy or radiculopathy, cervical region Problem 03/08/2019 12:00:00 AM EST eCW1 ([facility]) Surgeries/Procedures Procedure Description Date Indications Data Source(s) ESTABILISHED PATIENT [facility] CHARGE 020 12:00:00 AM EDT eCW1 ([facility]) PHYSICIAN TELEPHONE EVALUATION 11-20 MIN 06/20/2019 12 :00:00 AM EDT eCW1 ([facility]) INJECT TRIGGER POINTS 3/> 06/06/2019 12:00:00 AM EDT eCW1 ([facility]) NEEDLE LOCALIZATION BY XRAY 06/06/2019 12:00:00 AM EDT eCW1 ([facility]) RADXPS IN END [id number] PXD 04/16/2019 12:00:00 AM ES T eCW1 ([facility]) Eligible professional attests to vik natarajan in the medical record they obtained, updated, or reviewed the patient's current medications 03/07/2019 12:00:00 AM EST eCW1 ([facility]) Pain assessment documented as positive u sing a standardized tool and a follow-up plan is documented 03/07/2019 12:00:00 AM EST eC W1 ([facility]) Results ID Date Data Source [id number] 10/11/2019 09:30:00 AM EDT [facility] Name Value Range Interpretation Code Description Data Sade rce(s) Supporting Document(s) SARS coronavirus 2 RNA [facility] This lab was ordered by [facility] and reported by [facility]. Procedure Social History Code Duration Value Status Description Data Source(s ) Smoking 02/11/2020 12:00:00 AM EST Never Smoker completed Never S moker eCW1 ([facility]) Smoking 01/14/2020 12:00:00 AM EDT Never Smoker completed Never S moker eCW1 ([facility]) Vital Signs ID Date Data Source UNK Name Value Range Interpretation Code Description Data Source(s) Diastolic blood pressure 85 mm[Hg] 85 mm[Hg] eCW1 ([facility]) Systolic blood pressure 137 mm[Hg] 137 mm[Hg] e CW1 ([facility]) Body temperature 97.6 [degF] 97.6 [degF] eCW1 ( [facility]) Respiratory rate 18 /min 18 /min eCW1 ([facility]) Heart rate 86 /min 86 /min eCW1 ([facility]) Body mass index (BMI) [Ratio] 33.90 kg/m2 33.90 kg/m2 W1 ([facility]) Body height 72 [in_i] 72 [in_i] eCW1 ([facility]) Body weight 250 [lb_av] 250 [lb_av] eCW1 ([facility]) Diastolic blood pressure 60 mm[Hg] 60 mm[Hg] eCW1 ([facility]) Systolic blood pressure 110 mm[Hg] 110 mm[Hg] e CW1 ([facility]) Body temperature 96.6 [degF] 96.6 [degF] eCW1 ( [facility]) Respiratory rate 18 /min 18 /min eCW1 ([facility]) Heart rate 66 /min 66 /min eCW1 ([facility]) Body mass index (BMI) [Ratio] 33.60 kg/m2 33.60 kg/m2 eCW1 ([facility]) Body height 72 [in_i] 72 [in_i] eCW1 ([facility]) Body weight 247.8 [lb_av] 247.8 [lb_av] eCW1 ([facility]) Respiratory rate 20 /min 20 /min MEDENT ( [facility], ) Heart rate 76 /min 76 /min MEDENT ([facility]) Diastolic blood pressure 80 mm[Hg] 80 mm[Hg] MEDENT ([facility], ) Systolic blood pressure 118 mm[Hg] 118 mm[Hg] M EDENT ([facility], ) Body weight Measured 257.6 [lb_av] 257.6 [lb_av ] eCW1 ([facility]) Diastolic blood pressure 55 mm[Hg] 55 mm[Hg] eCW1 ([facility]) Systolic blood pressure 110 mm[Hg] 110 mm[Hg] e CW1 ([facility]) Body temperature 97.0 [degF] 97.0 [degF] eCW1 ( [facility]) Respiratory rate 18 /min 18 /min eCW1 ([facility]) Heart rate 81 /min 81 /min eCW1 ([facility]) Body mass index (BMI) [Ratio] 34.93 kg/m2 34.93 kg/m2 W1 ([facility]) Body height 72 [in_us] 72 [in_us] eCW1 ([facility]) [place] body weight 190 [lb_av] 190 [lb_av] MEDEN T ([facility], ) Body mass index (BMI) [Ratio] 32.7 kg/m2 32.7 k g/m2 MEDENT ([facility], ) Body weight 255.00 [lb_av] 255.00 [lb_av] MEDEN T ([facility], ) Body height 74 [in_i] 74 [in_i] MEDENT ([facility], ) 6'2" Respiratory rate 14 /min 14 /min [facility] ( [facility], ) Diastolic blood pressure 56 mm[Hg] 56 mm[Hg] eCW1 ([facility]) Systolic blood pressure 107 mm[Hg] 107 mm[Hg] e CW1 ([facility]) Body temperature 97.1 [degF] 97.1 [degF] eCW1 ( [facility]) Respiratory rate 18 /min 18 /min eCW1 ([facility]) Heart rate 76 /min 76 /min eCW1 ([facility]) Body mass index (BMI) [Ratio] 35.26 kg/m2 35.26 kg/m2 eCW1 ([facility]) Body height 72 [in_us] 72 [in_us] eCW1 ([facility]) Body weight Measured 260.0 [lb_av] 260.0 [lb_av ] eCW1 ([facility]) Diastolic blood pressure 58 mm[Hg] 58 mm[Hg] eCW1 ([facility]) Systolic blood pressure 107 mm[Hg] 107 mm[Hg] e CW1 ([facility]) Body temperature 97.1 [degF] 97.1 [degF] eCW1 ( [facility]) Respiratory rate 18 /min 18 /min eCW1 ([facility]) Heart rate 101 /min 101 /min eCW1 ([facility]) Body mass index (BMI) [Ratio] 34.66 kg/m2 34.66 kg/m2 eCW1 ([facility]) Body height 72 [in_us] 72 [in_us] eCW1 ([facility]) Body weight Measured 255.6 [lb_av] 255.6 [lb_av ] eCW1 ([facility]) Systolic blood pressure 121 mm[Hg] 121 mm[Hg] A THENA ([facility]) Body height 74 [in_i] 74 [in_i] SHIVA ([facility]) Diastolic blood pressure 68 mm[Hg] 68 mm[Hg] SHIVA ([facility]) Diastolic blood pressure--sitting 68 mm[Hg] 68 mm[Hg] MEDENT ([facility]) CBP large adult cuff Systolic blood pressure--sitting 116 mm[Hg] 116 mm[Hg] MEDENT ([facility]) CBP large adult cuff Heart rate 68 /min 68 /min MEDENT ([facility]) Body mass index (BMI) [Ratio] 32.1 kg/m2 32.1 k g/m2 MEDENT ([facility]) Body height 74 [in_i] 74 [in_i] MEDENT ([facility] 6'2" Body weight 250.00 [lb_av] 250.00 [lb_av] MEDEN T ([facility]) Body weight Measured 254 [lb_av] 254 [lb_av] eC W1 ([facility]) Diastolic blood pressure 57 mm[Hg] 57 mm[Hg] eCW1 ([facility]) Systolic blood pressure 110 mm[Hg] 110 mm[Hg] e CW1 ([facility]) Body temperature 97.0 [degF] 97.0 [degF] eCW1 ( [facility]) Respiratory rate 18 /min 18 /min eCW1 ([facility]) Heart rate 72 /min 72 /min eCW1 ([facility]) Body mass index (BMI) [Ratio] 34.44 kg/m2 34.44 kg/m2 eCW1 ([facility]) Body height 72 [in_us] 72 [in_us] eCW1 ([facility]) Systolic blood pressure 116 mm[Hg] 116 mm[Hg] A THENA ([facility]) Body height 74 [in_i] 74 [in_i] SHIVA ([facility]) Diastolic blood pressure 71 mm[Hg] 71 mm[Hg] SHIVA ([facility]) Systolic blood pressure 116 mm[Hg] 116 mm[Hg] A THENA ([facility]) Body height 74 [in_i] 74 [in_i] SHIVA ([facility]) Diastolic blood pressure 71 mm[Hg] 71 mm[Hg] SHIVA ([facility]) Diastolic blood pressure 72 mm[Hg] 72 mm[Hg] eCW1 ([facility]) Systolic blood pressure 120 mm[Hg] 120 mm[Hg] e CW1 ([facility]) Body temperature 97.6 [degF] 97.6 [degF] eCW1 ( [facility]) Respiratory rate 18 /min 18 /min eCW1 ([facility]) Heart rate 105 /min 105 /min eCW1 ([facility]) Body mass index (BMI) [Ratio] 33.90 kg/m2 33.90 kg/m2 eCW1 ([facility]) Body height 72 [in_us] 72 [in_us] eCW1 ([facility]) Body weight Measured 250 [lb_av] 250 [lb_av] eC W1 ([facility]) Systolic blood pressure 121 mm[Hg] 121 mm[Hg] A THENA ([facility]) Body height 74 [in_i] 74 [in_i] SHIVA ([facility]) Diastolic blood pressure 82 mm[Hg] 82 mm[Hg] SHIVA ([facility]) Systolic blood pressure 121 mm[Hg] 121 mm[Hg] A THENA ([facility]) Body height 74 [in_i] 74 [in_i] SHIVA ([facility]) Diastolic blood pressure 82 mm[Hg] 82 mm[Hg] SHIVA ([facility]) Systolic blood pressure 121 mm[Hg] 121 mm[Hg] A THENA ([facility]) Body height 74 [in_i] 74 [in_i] SHIVA ([facility]) Diastolic blood pressure 82 mm[Hg] 82 mm[Hg] SHIVA ([facility]) Patient Treatment Plan of Care Planned Activity Planned Date Details Description Data Source (s) Hydrocortisone 10 MG/ML Topical Cream SHIVA ([facility]) Benzoyl Peroxide 50 MG/ML Medicated Liquid Soap SHIVA ([facility]) zolmitriptan 5 MG Oral Tablet SHIVA ([facility]) Hydrocortisone 10 MG/ML Topical Cream SHIVA ([facility]) Benzoyl Peroxide 50 MG/ML Medicated Liquid Soap SHIVA ([facility]) Hydrocortisone 10 MG/ML Topical Cream SHIVA ([facility]) Benzoyl Peroxide 50 MG/ML Medicated Liquid Soap SHIVA ([facility])
--- OUTSIDE RECORDS SUMMARY | 2020-04-07 13:43 | CCD ---
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 [id number] Problem Other chronic pain G89.29 Active 02247283 Problem Myalgia, other site M79.18 Active 70398711 Problem Pain in thoracic spine M54.6 Active [id number] ALLERGIES Allergen (clinical drug ingredient) Drug/Non Drug Allergy do cumented on EMR Reaction Allergy Type Onset Date Status adhesive on icy hot patches/lidocaine Anaphylaxis Non Drug Allergy Active modafinil Provigil([facility] Code:[address]-58) unknown Drug Allergy Active ENCOUNTERS from 1984 to 2020-02-25 Encounter Location Date Provider Diagnosis [facility] [address] [place] [id number] Jan, Maury Ya Pain in thoracic spine M54.6 and Myalgia , other site M79.18 IMMUNIZATIONS No Information SOCIAL HISTORY Tobacco Use: Social History Observation Description Date Details (start date - stop date) Never Smoker Sex Assigned At : Social History Observation Description Sex Assigned At Unknown Education: Question Answer Notes Level of Education: Not Finished College Language: Question Answer Notes Languages spoken: Turkmen Ep[employer]opalian: Question Answer Notes [employer] 08 Religious Alcohol Screening: Question Answer Notes Did you [...] FOR REFERRAL No Information VITAL SIGNS Weight 250 lbs Jan, Height 72 in Jan, BMI 33.90 kg/m2 Jan, Heart Rate 86 /min Jan, Respiratory Rate 18 /min Jan, Temperature 97.6 degrees Fahrenheit Jan, Oximetry 96% Jan, Blood pressure systolic 137 mm Hg Jan, Blood pressure diastolic 85 mm Hg Jan, MEDICATIONS Medication SIG (Take, Route, Frequency, Duration) Notes Start Da te End Date Status MS Contin 15 MG 1 tablet Orally every 12 hrs Not-Taking Rosuvastatin Calcium 40 MG 1 tablet Orally Once a day Active Emgality (300 MG Dose) 100 MG/ML 3 ml Subcutaneous every month Not-Taking Telmisartan 80 MG 1 tablet Orally twice daily Active Vitamin D (Ergocalciferol) 1.25 MG (31066 UT) 1 capsule Orally e very 2 weeks Active Oxymorphone HCl 5 MG 1 tablet 1 hour before or 2 hours after eating as needed Orally every 6 hrs PRN Not-Takin g Ketorolac Tromethamine 30 MG/ML 0.5 ml as needed Injection every 6 hr s Active Fioricet 50-325-40 MG 1 tablet as needed Orally every 4 hrs Active Mydayis 50 MG 1 capsule in the morning Orally Once a day Not-Taking Fentanyl 50 MCG/HR 1 patch to skin Transdermal every 72 hours Active Zanaflex 4 MG 1 tablet as needed Orally Three times a day Active Adzenys XR-ODT 6.3 MG 1 tablet in the morning Orally Once a day Active Emgality 120 MG/ML as directed Subcutaneous every month Active May Use Baclofen 10 mg orally three times daily as needed Active Allopurinol 300 MG 1 tablet Orally Once a day Active Dexilant 60 MG 1 capsule Orally Once a day prn Not-Taking Morphine Sulfate 15 MG 1 tablet as needed Orally three times janneth ly as needed Not-Taking Adderall 10 MG 1 tablet Orally every afternoon as needed Active Zomig 5 MG 1 tablet as needed Orally Once a day, can repeat after two hours Active Topiramate 25 MG 1 tablet Orally twice a day Active Carvedilol 12.5 MG 1 tablet Orally Twice a day for 30 day(s) Active Zofran 4 MG 1 tablet Orally every 6 hours as needed Active Hydromorphone HCl 8 MG as directed Orally 4 times a day as needed Active Belsomra 20 MG 1 tablet at bedtime as needed Orally Once a day Active PROCEDURES No Information RESULTS No Results REASON FOR VISIT neck pain/thoracic pain/DCS MEDICAL (GENERAL) HISTORY Type Description Date Medical History hypertension Medical History herniated disc cerviacal,thoracic Medical History gout Medical History ADHD Medical History sleep apnea Medical History Gerd Medical History brachial plexus disorder Medical History spinal stenosis Medical History insomnia Medical History tachy cardia Medical History hiatal hernia Medical History gastroparesis Medical History radiculopathy Medical History dorsal column stimulator Medical History Migraines Surgical History Deviated septum 2011 Surgical History C1-C2 dorsal column stimulator 2017 Surgical History jeff rectal abscess,fistulotomy and sphi cterotomy 2014 Surgical History wisdom teeth 2010 Hospitalization History surgeries Goals Section No Information Health Concerns No Information MEDICAL EQUIPMENT No Information MENTAL STATUS No Information FUNCTIONAL STATUS No Information ASSESSMENTS Encounter Date Diagnosis Assessment Notes Treatment Notes Treatm ent Clinical Notes Jan, Pain in thoracic spine (ICD-10 - M54.6) I discussed alternative with Mr. Mayers. I would like to request authorization for trigger point injections bilateral thoracic. We talked about dorsal spinal column stimulator for the thoracic spine. I informed him that from my experience, they do not help axial pain. I have encouraged him to try to have his current dorsal column stimulator try to help with his thoracic pain. The patient states he will talk with Misael. If the patient decides to do therapeutic facet blocks, we should consider doing them with IV sedation due to anxiety and discomfort associated with the procedure. The patient reports understanding and agrees with the plan. I, Keysha Schmitt, documented the above information acting as a scribe for Dr. Ya. I have reviewed the above document, written by Keysha Schmitt, medical lab assistant, and I verify that it is accurate. Jan, Myalgia, other site (ICD-10 - M79.18) Jan, Other Trigger point injection saul celis was printed PLAN OF TREATMENT Treatment Notes Assessment Notes Clinical Notes Pain in thoracic spine I discussed [place] with Mr. Mayers. I would like to request authorization for trigger point injections bilateral thoracic. We talked about dorsal spinal column stimulator for the thoracic spine. I informed him that from my experience, they do not help axial pain. I have encouraged him to try to have his current dorsal column stimulator try to help with his thoracic pain. The patient states he will talk with Misael. If the patient decides to do therapeutic facet blocks, we should consider doing them with IV sedation due to anxiety and discomfort associated with the procedure. The patient reports understanding and agrees with the plan. I, Keysha Schmitt, documented the above information acting as a scribe for Dr. Ya. I have reviewed the above document, written by Keysha Schmitt, medical lab assistant, and I verify that it is accurate. Next Appt Details Request auth for bilateral thoracic trig ty points Reason:Request auth for bilateral thoracic trigger points Follow Up:Request auth for bilateral thoracic trigger pointsRequest auth for bilateral thoracic trigger points Insurance Providers Payer Name Payer Address Payer Phone Insured Name Patient Relati onship to Insured Coverage Start Date Coverage End Date 'S ADMINSTRATION ([place] NON VA CARE [address] [address] [facility] [id number] [place] self
--- OUTSIDE RECORDS SUMMARY | 2020-04-07 14:49 | CCD ---
Author Author [facility] Organization [facility] Address Unknown Phone Unavailable Care Team Providers Care Pulpit Operator Name Role Phone YAZOL, Chio HASSAN MD [...] HASSAN MD Unavailable Unavailable Jumalon, M Opal BREAD WRAPPER OPERATOR Unavailable Unavailable Jumalon, M Opal BREAD WRAPPER OPERATOR Unavailable Unavailable Jumalon, M Opal BREAD WRAPPER OPERATOR Unavailable Unavailable Jumalon, M Opal BREAD WRAPPER OPERATOR Unavailable Unavailable Jumalon, M Opal BREAD WRAPPER OPERATOR Unavailable Unavailable Jumalon, M Opal BREAD WRAPPER OPERATOR Unavailable Unavailable Jumalon, M Opal BREAD WRAPPER OPERATOR Unavailable Unavailable Jumalon, M Opal BREAD WRAPPER OPERATOR Unavailable Unavailable Jumalon, M Opal BREAD WRAPPER OPERATOR Unavailable Unavailable Jumalon, M Opal BREAD WRAPPER OPERATOR Unavailable Unavailable Jumalon, M Opal BREAD WRAPPER OPERATOR Unavailable Unavailable Jumalon, M Opal BREAD WRAPPER OPERATOR Unavailable Unavailable Jumalon, M Opal BREAD WRAPPER OPERATOR Unavailable Unavailable Jumalon, M Opal BREAD WRAPPER OPERATOR Unavailable Unavailable Jumalon, M Opal BREAD WRAPPER OPERATOR Unavailable Unavailable Jumalon, M Opal BREAD WRAPPER OPERATOR Unavailable Unavailable Jumalon, M Opal BREAD WRAPPER OPERATOR Unavailable Unavailable Jumalon, M Opal BREAD WRAPPER OPERATOR Unavailable Unavailable Jumalon, M Opal BREAD WRAPPER OPERATOR Unavailable Unavailable Jumalon, M Opal BREAD WRAPPER OPERATOR Unavailable Unavailable Jumalon, M Opal BREAD WRAPPER OPERATOR Unavailable Unavailable Jumalon, M Opal BREAD WRAPPER OPERATOR Unavailable Unavailable Jumalon, M Opal BREAD WRAPPER OPERATOR Unavailable Unavailable Jumalon, M Opal BREAD WRAPPER OPERATOR Unavailable Unavailable Jumalon, M Opal BREAD WRAPPER OPERATOR Unavailable Unavailable Jumalon, M Opal BREAD WRAPPER OPERATOR Unavailable Unavailable JumalonMedardo Opal BREAD WRAPPER OPERATOR Unavailable Unavailable JumarciaonMedardo Opal BREAD WRAPPER OPERATOR Unavailable Unavailable Jorge Alberto Del Rosario MD [...] is protected by Article 27-F of the [place] Public [employer] law. If you continue you may have access to information: Regarding HIV / AIDS; Provided by facilities licensed or operated by the [place] Office of Mental Health; or Provided by the [place] Office for People With Developmental Disabilities. If such information is present, then the following [place] mandated warning applies: This information has been [...] law may result in a fine or custodial sentence or both. A general authorization for the release of medical or other information is NOT sufficient authorization for further disc losure. Allergies and Adverse Reactions Type Description Substance Reaction Status Data Source(s ) Drug allergy Provigil modafinil unknown Active eCW1 ([facility]) adhesive on icy hot patches/lidocaine adhesive on icy hot pa tches/lidocaine adhesive on icy hot patches/lidocaine Anaphylaxis Active eC W1 ([facility]) adhesive on icy hot patches/lidocain adhesive on icy hot pat ches/lidocain adhesive on icy hot patches/lidocain Anaphylaxis Active eCW 1 ([facility]) adhesive on icy hot patches/lidocain adhesive on icy hot pat ches/lidocain adhesive on icy hot patches/lidocain Anaphylaxis Active eCW 1 ([facility]) adhesive on icy hot patches/lidocain adhesive on icy hot pat ches/lidocain adhesive on icy hot patches/lidocain Anaphylaxis Active eCW 1 ([facility]) adhesive on icy hot patches/lidocain adhesive on icy hot pat ches/lidocain adhesive on icy hot patches/lidocain Anaphylaxis Active eCW 1 ([facility]) adhesive on icy hot patches/lidocain adhesive on icy hot pat ches/lidocain adhesive on icy hot patches/lidocain Anaphylaxis Active eCW 1 ([facility]) Family History Family Member Name Family Member Gender Family Member Status Date o f Status Description Data Source(s) Unknown Unknown Problem MEDENT ([facility]) mother Unknown Female Problem MEDENT ([facility]) Unknown Female Problem MEDENT ([facility]) Unknown Female Problem MEDENT ([facility]) Unknown Female Problem MEDENT ([facility]) Unknown Female Problem MEDENT ([facility]) Encounters Encounter Providers Location Date Indications Data Source(s ) Outpatient Attender: Blanca GRIFFIN Main office - [facility] 03/31/2020 08:15:00 AM EST MEDENT ([facility]) [place] [address] [facility] [address] 02/11/2020 12:00:00 AM EST eCW1 ([facility]) [place] [address] [facility] [address] 01/14/2020 12:00:00 AM EDT eCW1 ([facility]) Outpatient Attender: Blanca GRIFFIN Main office - [facility] 12/31/2019 08:00:00 AM EDT MEDENT ([facility] ) Outpatient Attender: Blanca GRIFFIN Main office - [facility] 09/11/2019 01:00:00 PM EDT MEDENT ([facility] ) [facility] [address] [place] [phone] 08/27/2019 12:00:00 AM EDT eCW1 ([facility]) Outpatient Referrer: Ronny Del Rosario MD 07/31/2019 05:12:00 PM EDT [facility] [address] [place] [phone] 07/31/2019 12:00:00 AM EDT eCW1 ([facility]) [facility] [address] [place] [phone] 07/23/2019 12:00:00 AM EDT eCW1 ([facility]) [facility] [address] [place] [phone] 06/20/2019 12:00:00 AM EDT eCW1 ([facility]) [facility] [address] [place] [phone] 06/06/2019 12:00:00 AM EDT eCW1 ([facility]) [facility] [address] [place] [phone] 04/30/2019 12:00:00 AM EST eCW1 ([facility]) Opal Shah, DRIVE WORKER: [address], [place] [address], Ph. Attender: Opal Gasparramsey [facility] 04/25/2019 12:00:00 AM EST ATHE NA ([facility]) Outpatient Attender: MO BULLOCK MD Main Office 04/24/2019 07:00:00 AM EST SHANON ([facility]) Outpatient Referrer: Ronny Del Rosario MD 04/20/2019 01:42:00 PM EST [facility] [address] [place] [address] 04/16/2019 12:00:00 AM EST eCW1 ([facility]) [facility] [address] [place] [phone] 04/13/2019 12:00:00 AM EST eCW1 ([facility]) Opal hSah, DRIVE WORKER: [address], [place] [address], Ph. Attender: Opal Alyssa [facility] 03/28/2019 12:00:00 AM EST ATHE NA ([facility]) Opal Shah, DRIVE WORKER: [address], [place] [address], Ph. Attender: Opal Alyssa [facility] 03/28/2019 12:00:00 AM EST ATHE NA ([facility]) [facility] [address] [place] [phone] 03/09/2019 12:00:00 AM EST eCW1 ([facility]) [facility] [address] [place] [phone] 03/07/2019 12:00:00 AM EST eCW1 ([facility]) Opal Shah, DRIVE WORKER: [address], [place] [address], Ph. Attender: Opal Shah [facility] 02/28/2019 12:00:00 AM EST MAURICIO ADAIR ([facility]) Opal Shah, DRIVE WORKER: [address], [place] [address], Ph. Attender: Opal Shah [facility] 02/28/2019 12:00:00 AM EST MAURICIO NA ([facility]) Opal Shah, DRIVE WORKER: [address], [place] [address], Ph. [facility] 02/28/2019 12:00:00 AM EST MAURICIO NA ([facility]) Outpatient Referrer: Ronny Del Rosario MD 02/12/2019 09:13:00 PM [facility] Medications Medication Brand Name Start Date Product Form Dose Route Admi nistrative Instructions Pharmacy Instructions Status Indications Reaction Description Data Source(s) Acetaminophen 325 MG / butalbital 50 MG / Caffeine 40 MG Oral Tablet Butalbital/Acetaminophen/Caffeine 12/31/2019 12:00:00 AM EDT ORAL active MEDENT ([facility]) zolmitriptan 5 MG Disintegrating Oral Tablet [Zomig] Zomig Z MT 12/31/2019 12:00:00 AM EDT ORAL active M EDENT ([facility] ) 10 mg 09/26/2019 12:00:00 AM EDT tablet 120 TAKE 1/2-1 TABLET BY MOUTH FOUR TIMES A DAY NEEDED FOR PAIN MAXIMUM DAILY DOSE =4 TAKE 1/2-1 TABLET BY MOUTH FOUR TIMES A DAY NEEDED FOR PAIN MAXIMUM DAILY DOSE =4 SOLD: 09/26/2019 [facility] Ondansetron 4 MG Disintegrating Oral Tablet Ondansetron 09/11/2019 12:00:00 AM EDT active MEDENT ([facility] ) topiramate 25 MG Oral Tablet [Topamax] Topamax 09/11/2019 12:00:00 AM EDT ORAL active MEDENT ([facility]) 5 mg 09/06/2019 12:00:00 AM EDT tablet 120 TAKE ONE TABLET BY MOUTH FOUR TIMES A DAY NEEDED FOR PAIN MAXIMUM DAILY DOSE = FOUR TABLETS TAKE ONE TABLET BY MOUTH FOUR TIMES A DAY NEEDED FOR PAIN MAXIMUM DAILY DOSE = FOUR TABLETS SOLD: 09/06/2019 [facility] Emgality Emgality 07/30/2019 12:00:00 AM EDT activ e MEDENT ([facility] ) Emgality Emgality 06/19/2019 12:00:00 AM EDT compl eted MEDENT ([facility] ) Emgality Emgality 06/19/2019 12:00:00 AM EDT compl eted MEDENT ([facility] ) 72 HR Fentanyl 0.025 MG/HR Transdermal System FENTANYL 05/26/2019 12:00:00 AM EST patch 72 hour 10 APPLY 1 PATCH EV GREGORIO 3 DAYS MAXIMUM DAILY DOSE = 1 EVERY 3 DAYS APPLY 1 PATCH EVERY 3 DAYS MAXIMUM DAILY DOSE = 1 EVER Y 3 DAYS SOLD: 05/26/2019 [facility] Morphine Sulfate 15 MG Oral Tablet Morphine Sulfate 04/23/2019 1 2:00:00 AM EST ORAL active MEDENT ( [facility]) 80 mg 02/09/2019 12:00:00 AM EST tablet 90 TAKE ONE TABLET BY MOUTH EVERY DAY TAKE ONE TABLET BY MOUTH EVERY DAY SOLD: 02/09/2019 [employer] [facility] telmisartan 80 MG Oral Tablet Telmisartan 02/08/2019 12:00:00 AM EST ORAL active MEDENT ([facility]) Morphine Sulfate 30 MG Extended Release Oral Tablet [MS Cont in] MS Contin 01/15/2019 12:00:00 AM EDT ORAL completed MEDENT ([facility]) Benzoyl Peroxide 50 MG/ML Medicated Liqu id Soap benzoyl peroxide 5 % topical cleanser benzoyl peroxide 5 % topical cleanser completed Benzoyl Peroxide 50 MG/ML Medicated Liquid Soap SHIVA ([facility]) Benzoyl Peroxide 50 MG/ML Medicated Liqu id Soap benzoyl peroxide 5 % topical cleanser benzoyl peroxide 5 % topical cleanser completed Benzoyl Peroxide 50 MG/ML Medicated Liquid Soap SHIVA ([facility]) Hydrocortisone 10 MG/ML Topical Cream hydrocortisone 1 % topical cream hydrocortisone 1 % topical cream compl eted Hydrocortisone 10 MG/ML Topical Cream SHIVA ([facility]) Hydrocortisone 10 MG/ML Topical Cream hydrocortisone 1 % topical cream hydrocortisone 1 % topical cream compl eted Hydrocortisone 10 MG/ML Topical Cream SHIVA ([facility]) Hydrocortisone 10 MG/ML Topical Cream hydrocortisone 1 % topical cream hydrocortisone 1 % topical cream compl eted Hydrocortisone 10 MG/ML Topical Cream SHIVA ([facility]) Benzoyl Peroxide 50 MG/ML Medicated Liqu id Soap benzoyl peroxide 5 % topical cleanser benzoyl peroxide 5 % topical cleanser completed Benzoyl Peroxide 50 MG/ML Medicated Liquid Soap SHIVA ([facility]) zolmitriptan 5 MG Oral Tablet zolmitriptan 5 mg tablet zolmi triptan 5 mg tablet completed zolmitriptan 5 MG Oral Tablet SHIVA ([facility]) Insurance Providers Payer name Policy type / Coverage type Policy ID Covered republican ID Covered republican's relationship to hidalgo Policy [place] Plan Information FOR LIFE [id number] SP [id number] ADMINISTRATION [id number] SP [id number] OPTUM [place] CCN [id number] SP [id number] OPTUM [place] O [id number] S [id number] O [id number] S [id number] OTHER B [id number] Self [id number] [facility] [id number] SP [id number] WEST O [id number] S [id number] HUMANA EAST REG O [id number] S [id number] EAST HUMANA [id number] SP [id number] EAST HUMANA [id number] SP [id number] OTHER B [id number] Self [id number] OTHER B [id number] Self [id number] ACTIVE DUTY [id number] SP [id number] Prime Commercial [id number] Self [id number] U [id number] Self [id number] 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 Self Health Net Federal Prime Health Maintenance Organization (HMO) Self ACTIVE DUTY [id number] SP [id number] ACTIVE DUTY [id number] SP [id number] [facility] O [id number] S [id number] [facility] 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 Self Problems, Conditions, and Diagnoses Code Display Name Description Problem Type Effective Dates Data Source(s) 90445921 Cervico-occipital neuralgia Cervico-occipital neuralgi a Problem 06/19/2019 12:00:00 AM EDT MEDENT ([facility] ) [id number] Neck pain Neck pain Problem 06/19/2019 12:00:00 AM ED T MEDENT ([facility] ) [id number] Chronic tension-type headache Chronic tension-type hea dache Problem 06/19/2019 12:00:00 AM EDT MEDENT ([facility] ) [id number] Chronic intractable migraine without aur a Chronic intractable migraine without aura Problem 06/19/2019 12:00:00 AM EDT MEDENT ([facility] ) 577157918 Dietary management surveillance Dietary manageme nt surveillance Problem 04/24/2019 12:00:00 AM EST MEDENT ([facility]) [id number] Obesity Obesity Problem 04/24/2019 12:00:00 AM ES T MEDENT ([facility]) [id number] Hyperlipidemia Hyperlipidemia Problem 04/24/2019 12:00: 00 AM EST MEDENT ([facility]) [id number] Essential hypertension Essential hypertension Problem 04/24/2019 12:00:00 AM EST MEDENT ([facility]) 08405447 Chest pain Chest pain Problem 04/24/2019 12:00:00 AM ES T MEDENT ([facility]) 95636761 Premature beats Premature beats Problem 04/24/2019 12:0 0:00 AM EST MEDENT ([facility]) M54.6 [id number] Pain in thoracic spine Problem 03/08/20 19 12:00:00 AM EST eCW1 ([facility]) M79.18 [id number] Myalgia, other site Problem 03/08/2019 12:00 :00 AM EST eCW1 ([facility]) G89.29 [id number] Other chronic pain Problem 03/08/2019 12:00: 00 AM EST eCW1 ([facility]) M47.812 [id number] Spondylosis without myelopathy or radiculopathy, cervical region Problem 03/08/2019 12:00:00 AM EST eCW1 ([facility]) M54.6 [id number] Pain in thoracic spine Problem 03/08/20 12:00:00 AM EST eCW1 ([facility]) M79.18 [id number] Myalgia, other site Problem 03/08/2019 12:00 :00 AM EST eCW1 ([facility]) G89.29 [id number] Other chronic pain Problem 03/08/2019 12:00: 00 AM EST eCW1 ([facility]) M47.812 [id number] Spondylosis without myelopathy or radiculopathy, cervical region Problem 03/08/2019 12:00:00 AM EST eCW1 ([facility]) Surgeries/Procedures Procedure Description Date Indications Data Source(s) ESTABILISHED PATIENT [facility] FACILITY CHARGE 020 12:00:00 AM EDT eCW1 ([facility]) PHYSICIAN TELEPHONE EVALUATION 11-20 MIN 06/20/2019 12 :00:00 AM EDT eCW1 ([facility]) INJECT TRIGGER POINTS 3/> 06/06/2019 12:00:00 AM EDT eCW1 ([facility]) NEEDLE LOCALIZATION BY XRAY 06/06/2019 12:00:00 AM EDT eCW1 ([facility]) RADXPS IN END [id number] PXD 04/16/2019 12:00:00 AM ES T eCW1 ([facility]) Eligible professional attests to vik natarajan in the medical record they obtained, updated, or reviewed the patient's current medications 03/07/2019 12:00:00 AM EST eCW1 ([facility]) Pain assessment documented as positive u sing a standardized tool and a follow-up plan is documented 03/07/2019 12:00:00 AM EST eC W1 ([facility]) Results ID Date Data Source [id number] 10/11/2019 09:30:00 AM EDT [facility] Name Value Range Interpretation Code Description Data Sade rce(s) Supporting Document(s) SARS coronavirus 2 RNA [facility] This lab was ordered by [facility] and reported by [facility]. Procedure Social History Code Duration Value Status Description Data Source(s ) Smoking 02/11/2020 12:00:00 AM EST Never Smoker completed Never S moker eCW1 ([facility]) Smoking 01/14/2020 12:00:00 AM EDT Never Smoker completed Never S moker eCW1 ([facility]) Vital Signs ID Date Data Source UNK Name Value Range Interpretation Code Description Data Source(s) Diastolic blood pressure 85 mm[Hg] 85 mm[Hg] eCW1 ([facility]) Systolic blood pressure 137 mm[Hg] 137 mm[Hg] e CW1 ([facility]) Body temperature 97.6 [degF] 97.6 [degF] eCW1 ( [facility]) Respiratory rate 18 /min 18 /min eCW1 ([facility]) Heart rate 86 /min 86 /min eCW1 ([facility]) Body mass index (BMI) [Ratio] 33.90 kg/m2 33.90 kg/m2 W1 ([facility]) Body height 72 [in_i] 72 [in_i] eCW1 ([facility]) Body weight 250 [lb_av] 250 [lb_av] eCW1 ([facility]) Diastolic blood pressure 60 mm[Hg] 60 mm[Hg] eCW1 ([facility]) Systolic blood pressure 110 mm[Hg] 110 mm[Hg] e CW1 ([facility]) Body temperature 96.6 [degF] 96.6 [degF] eCW1 ( [facility]) Respiratory rate 18 /min 18 /min eCW1 ([facility]) Heart rate 66 /min 66 /min eCW1 ([facility]) Body mass index (BMI) [Ratio] 33.60 kg/m2 33.60 kg/m2 W1 ([facility]) Body height 72 [in_i] 72 [in_i] eCW1 ([facility]) Body weight 247.8 [lb_av] 247.8 [lb_av] eCW1 ([facility]) Respiratory rate 20 /min 20 /min MEDENT ( [facility] ) Heart rate 76 /min 76 /min MEDENT ([facility], ) Diastolic blood pressure 80 mm[Hg] 80 mm[Hg] MEDENT ([facility], ) Systolic blood pressure 118 mm[Hg] 118 mm[Hg] M EDENT ([facility]) Body weight Measured 257.6 [lb_av] 257.6 [lb_av ] eCW1 ([facility]) Diastolic blood pressure 55 mm[Hg] 55 mm[Hg] eCW1 ([facility]) Systolic blood pressure 110 mm[Hg] 110 mm[Hg] e CW1 ([facility]) Body temperature 97.0 [degF] 97.0 [degF] eCW1 ( [facility]) Respiratory rate 18 /min 18 /min eCW1 ([facility]) Heart rate 81 /min 81 /min eCW1 ([facility]) Body mass index (BMI) [Ratio] 34.93 kg/m2 34.93 kg/m2 W1 ([facility]) Body height 72 [in_us] 72 [in_us] eCW1 ([facility]) Elmer body weight 190 [lb_av] 190 [lb_av] MEDEN T ([facility], ) Body mass index (BMI) [Ratio] 32.7 kg/m2 32.7 k g/m2 MEDENT ([facility]) Body weight 255.00 [lb_av] 255.00 [lb_av] MEDEN T ([facility], ) Body height 74 [in_i] 74 [in_i] MEDENT ([facility], ) 6'2" Respiratory rate 14 /min 14 /min MEDENT ( [facility]) Diastolic blood pressure 56 mm[Hg] 56 mm[Hg] eCW1 ([facility]) Systolic blood pressure 107 mm[Hg] 107 mm[Hg] e CW1 ([facility]) Body temperature 97.1 [degF] 97.1 [degF] eCW1 ( [facility]) Respiratory rate 18 /min 18 /min eCW1 ([facility]) Heart rate 76 /min 76 /min eCW1 ([facility]) Body mass index (BMI) [Ratio] 35.26 kg/m2 35.26 kg/m2 eCW1 ([facility]) Body height 72 [in_us] 72 [in_us] eCW1 ([facility]) Body weight Measured 260.0 [lb_av] 260.0 [lb_av ] eCW1 ([facility]) Diastolic blood pressure 58 mm[Hg] 58 mm[Hg] eCW1 ([facility]) Systolic blood pressure 107 mm[Hg] 107 mm[Hg] e CW1 ([facility]) Body temperature 97.1 [degF] 97.1 [degF] eCW1 ( [facility]) Respiratory rate 18 /min 18 /min eCW1 ([facility]) Heart rate 101 /min 101 /min eCW1 ([facility]) Body mass index (BMI) [Ratio] 34.66 kg/m2 34.66 kg/m2 W1 ([facility]) Body height 72 [in_us] 72 [in_us] eCW1 ([facility]) Body weight Measured 255.6 [lb_av] 255.6 [lb_av ] eCW1 ([facility]) Systolic blood pressure 121 mm[Hg] 121 mm[Hg] A THENA ([facility]) Body height 74 [in_i] 74 [in_i] SHIVA ([facility] [facility] Diastolic blood pressure 68 mm[Hg] 68 mm[Hg] SHIVA ([facility]) Diastolic blood pressure--sitting 68 mm[Hg] 68 mm[Hg] MEDENT ([facility]) CBP large adult cuff Systolic blood pressure--sitting 116 mm[Hg] 116 mm[Hg] MEDENT ([facility]) CBP large adult cuff Heart rate 68 /min 68 /min MEDENT ([facility]) Body mass index (BMI) [Ratio] 32.1 kg/m2 32.1 k g/m2 MEDENT ([facility]) Body height 74 [in_i] 74 [in_i] MEDENT ([facility]) 6'2" Body weight 250.00 [lb_av] 250.00 [lb_av] MEDEN T ([facility]) Body weight Measured 254 [lb_av] 254 [lb_av] eC W1 ([facility]) Diastolic blood pressure 57 mm[Hg] 57 mm[Hg] eCW1 ([facility]) Systolic blood pressure 110 mm[Hg] 110 mm[Hg] e CW1 ([facility]) Body temperature 97.0 [degF] 97.0 [degF] eCW1 ( [facility]) Respiratory rate 18 /min 18 /min eCW1 ([facility]) Heart rate 72 /min 72 /min eCW1 ([facility]) Body mass index (BMI) [Ratio] 34.44 kg/m2 34.44 kg/m2 eCW1 ([facility]) Body height 72 [in_us] 72 [in_us] eCW1 ([facility]) Systolic blood pressure 116 mm[Hg] 116 mm[Hg] A THENA ([facility]) Body height 74 [in_i] 74 [in_i] SHIVA ([facility]) Diastolic blood pressure 71 mm[Hg] 71 mm[Hg] SHIVA ([facility]) Systolic blood pressure 116 mm[Hg] 116 mm[Hg] A THENA ([facility]) Body height 74 [in_i] 74 [in_i] SHIVA ([facility]) Diastolic blood pressure 71 mm[Hg] 71 mm[Hg] SHIVA ([facility]) Diastolic blood pressure 72 mm[Hg] 72 mm[Hg] eCW1 ([facility]) Systolic blood pressure 120 mm[Hg] 120 mm[Hg] e CW1 ([facility]) Body temperature 97.6 [degF] 97.6 [degF] eCW1 ( [facility]) Respiratory rate 18 /min 18 /min eCW1 ([facility]) Heart rate 105 /min 105 /min eCW1 ([facility]) Body mass index (BMI) [Ratio] 33.90 kg/m2 33.90 kg/m2 eCW1 ([facility]) Body height 72 [in_us] 72 [in_us] eCW1 ([facility]) Body weight Measured 250 [lb_av] 250 [lb_av] eC W1 ([facility]) Systolic blood pressure 121 mm[Hg] 121 mm[Hg] A THENA ([facility]) Body height 74 [in_i] 74 [in_i] SHIVA ([facility]) Diastolic blood pressure 82 mm[Hg] 82 mm[Hg] SHIVA ([facility]) Systolic blood pressure 121 mm[Hg] 121 mm[Hg] A THENA ([facility]) Body height 74 [in_i] 74 [in_i] SHIVA ([facility]) Diastolic blood pressure 82 mm[Hg] 82 mm[Hg] SHIVA ([facility]) Systolic blood pressure 121 mm[Hg] 121 mm[Hg] A THENA ([facility]) Body height 74 [in_i] 74 [in_i] SHIVA ([facility]) Diastolic blood pressure 82 mm[Hg] 82 mm[Hg] SHIVA ([facility]) Patient Treatment Plan of Care Planned Activity Planned Date Details Description Data Source (s) Hydrocortisone 10 MG/ML Topical Cream SHIVA ([facility]) Benzoyl Peroxide 50 MG/ML Medicated Liquid Soap SHIVA ([facility]) zolmitriptan 5 MG Oral Tablet SHIVA ([facility]) Hydrocortisone 10 MG/ML Topical Cream SHIVA ([facility]) Benzoyl Peroxide 50 MG/ML Medicated Liquid Soap SHIVA ([facility]) Hydrocortisone 10 MG/ML Topical Cream SHIVA ([facility]) Benzoyl Peroxide 50 MG/ML Medicated Liquid Soap SHIVA ([facility])
[2020-04-07 15:28] LABS: BASO % 0.6 % (0.0-1.0); EOS # 0.1 10^3/uL (0.0-0.5); EOS % 1.6 % (0.0-3.0); HEMATOCRIT 43.2 % (42.0-52.0); HEMOGLOBIN 14.8 g/dl (13.5-17.5); LYMPH # 2.1 10^3/uL (1.5-5.0); LYMPH % 41.1 % (24.0-44.0); MEAN CORPUSCULAR HEMOGLOBIN 29.1 pg (27.0-33.0); MEAN CORPUSCULAR HGB CONC 34.3 g/dl (32.0-36.5); MONO # 0.5 10^3/uL (0.0-0.8); MONO % 9.6 % (0.0-5.0); NEUTROPHILS # 2.3 10^3/uL (1.5-8.5); NEUTROPHILS % 46.7 % (36.0-66.0); PLATELET COUNT, AUTOMATED 260 10^3/uL (150-450); RED BLOOD COUNT 5.08 10^6/uL (4.30-6.10)
[2020-04-07 15:36] LABS: BLOOD UREA NITROGEN 16 MG/DL (7-18); CALCIUM LEVEL 8.9 MG/DL (8.5-10.1); CARBON DIOXIDE LEVEL 25 MEQ/L (21-32); CHLORIDE LEVEL 106 MEQ/L (98-107); CREATININE FOR GFR 1.01 MG/DL (0.70-1.30); GLOMERULAR FILTRATION RATE > 60.0 (>60); GLUCOSE, FASTING 79 MG/DL (70-100); POTASSIUM SERUM 4.1 MEQ/L (3.5-5.1); SODIUM LEVEL 139 MEQ/L (136-145)
[2020-04-07 15:37] VITALS: BP 100/55
--- NOTE | 2020-04-07 16:00 | REP ---
INDICATION: r/o abscess/fistula to left buttock. COMPARISON: None. TECHNIQUE: Real-time sonographic evaluation of left gluteal soft tissues performed in the region of inflamed skin. FINDINGS: Soft tissues in this region are heterogeneous in echotexture. No fluid collection or abscess is visualized sonographically. IMPRESSION: No sonographic evidence of fluid collection or abscess in the left gluteal soft tissues. <Electronically signed by Adam Bradley > 04/07/20 [id number]
[2020-04-07] MEDS ORDERED: BACT800T5 PO (16:12)
== END 2020-04-07 16:38 | disposition home or self-care (01) ==
LOC: M ED 13:35
DX: L03.327 Acute lymphangitis of buttock (principal); K21.9 Gastro-esophageal reflux disease without esophagitis; G47.33 Obstructive sleep apnea (adult) (pediatric); E78.5 Hyperlipidemia, unspecified; I10 Essential (primary) hypertension; K76.0 Fatty (change of) liver, not elsewhere classified; F90.9 Attention-deficit hyperactivity disorder, unspecified type; G47.00 Insomnia, unspecified

== ENCOUNTER → 2020-06-25 | Outpatient (CLI) | payer OTHER ==
[~2020-06-25] MED LIST changes: +BACT800T5 PO
--- NOTE | 2020-06-25 23:23 | ECWPNPC ---
PATIENT NAME: CHUNG MAYERS : 1985 GENDER: MALE VISIT DATE: 06/25/2020 DISCHARGE DATE: 06/25/20914 VISIT LOCKED DATE TIME: PHYSICIAN: DIDIER HARRISON RESOURCE: DIDIER HARRISON REASON FOR APPOINTMENT 1. CHRONIC PAIN HISTORY OF PRESENT ILLNESS DEPRESSION SCREENING: PHQ-2 (2015 EDITION) LITTLE INTEREST OR PLEASURE IN DOING THINGS?NOT AT ALL FEELING DOWN, DEPRESSED, OR HOPELESS?NOT AT ALL TOTAL SCORE0 GENERAL: HERE FOR FOLLOW-UP OF CHRONIC NECK AND THORACIC BACK PAIN. WORST AREA OF PAIN IS THORACIC REGION THAT RADIATES ANTERIORLY AROUND THE RIB CAGE/PARASPINAL AREA. HAS RESPONDED WELL TO TRIGGER POINT INJECTIONS IN THE PAST. PAIN IS AGGRAVATED BY BENDING FOR PROLONGED PERIODS OF TIME. PATIENT HAS A DORSAL COLUMN STIMULATOR. -. FALL RISK SCREENING: SCREENING : NO FALLS REPORTED IN THE LAST YEAR. PAIN SCREENING: PATIENT HAS A COMPLAINT OF ACUTE OR CHRONIC PAIN :YES LOCATION OF PAIN:NECK, UPPER BACK, MID BACK, LOW BACK INTENSITY OF PAIN (SCALE OF 1 TO 10):5 WHAT DOES YOUR PAIN FEEL LIKE:ACHING, BURNING, STABBING, SHOOTING DURATION:CONTINOUS, CONSTANT, ALL DAY PAIN IS INCREASED BY:ACTIVITIES PAIN IS DECREASED BY:USE OF PAIN MEDICATIONS, OTHERS HEAT NURSING NOTE: -. PAIN CENTER INTAKE QUESTIONS: DO YOU HAVE A HISTORY OF MRSA? :NO DO YOU TAKE A BLOOD THINNERS? :NO DO YOU HAVE ANY BLEEDING DISORDERS? :NO ANY NEW NUMBNESS OR WEAKNESS IN YOUR LEGS OR ARMS? :NO ANY PACEMAKER,DEFIBRILLATOR, OR DORSAL COLUMN STIMULATOR? :YES C1-C2 DORSAL COLUMM STIMULATOR DO YOU HAVE ANY RASHES OR OPEN SORES? :YES POSTERIOR HEAD SORE DUE TO CPAP MASK ARE YOU ALLERGIC TO IV DYE? :NO ARE YOU DIABETIC? :NO ANY NEW PROBLEMS WITH YOUR MEDICATIONS? :NO HAVE YOU RECEIVED A VACCINE IN THE PAST 30 DAYS? :NO DO YOU PLAN TO RECEIVE A VACCINE IN THE NEXT 21 DAYS? :NO DO YOU NEED ANY PRESCRIPTION? :NO DO YOU TAKE ANY IMMUNOSUPPRESSIVE MEDICATIONS? :NO IS THERE A CHANCE YOU COULD BE ? :NO ARE YOU BREAST FEEDING? :NO CURRENT MEDICATIONS TAKING KETOROLAC TROMETHAMINE 30 MG/ML SOLUTION 0.5 ML NEEDED INJECTION EVERY 6 HRS TAKING TELMISARTAN 80 MG TABLET 1 TABLET ORALLY TWICE DAILY TAKING CARVEDILOL 12.5 MG TABLET 1 TABLET ORALLY TWICE A DAY TAKING ZOFRAN 4 MG TABLET 1 TABLET ORALLY EVERY 6 HOURS NEEDED TAKING ALLOPURINOL 300 MG TABLET 1 TABLET ORALLY ONCE A DAY TAKING ZANAFLEX 4 MG TABLET 1 TABLET NEEDED ORALLY THREE TIMES A DAY TAKING MAY USE BACLOFEN 10 MG ORALLY THREE TIMES DAILY NEEDED TAKING ADDERALL 10 MG TABLET 1 TABLET ORALLY EVERY AFTERNOON NEEDED TAKING BELSOMRA 20 MG TABLET 1 TABLET AT BEDTIME NEEDED ORALLY ONCE A DAY TAKING ZOMIG 5 MG TABLET 1 TABLET NEEDED ORALLY ONCE A DAY, CAN REPEAT AFTER TWO HOURS TAKING TOPIRAMATE 25 MG TABLET 1 TABLET ORALLY TWICE A DAY TAKING VITAMIN D (ERGOCALCIFEROL) 1.25 MG (39761 UT) CAPSULE 1 CAPSULE ORALLY EVERY 2 WEEKS TAKING ROSUVASTATIN CALCIUM 40 MG TABLET 1 TABLET ORALLY ONCE A DAY TAKING FENTANYL 75 MCG/HR PATCH 72 HOUR 1 PATCH TO SKIN TRANSDERMAL EVERY 72 HOURS TAKING ADZENYS XR-ODT 6.3 MG TABLET EXTENDED RELEASE DISINTEGRATING 1 TABLET IN THE MORNING ORALLY ONCE A DAY TAKING HYDROMORPHONE HCL 8 MG TABLET DIRECTED ORALLY 3 TIMES A DAY NEEDED TAKING FIORICET 50-325-40 MG TABLET 1 TABLET NEEDED ORALLY EVERY 4 HRS, NOTES: UNSURE OF DOSE TAKING EMGALITY 120 MG/ML SOLUTION AUTO-INJECTOR DIRECTED SUBCUTANEOUS EVERY MONTH NOT-TAKING OXYMORPHONE HCL 5 MG TABLET 1 TABLET 1 HOUR BEFORE OR 2 HOURS AFTER EATING NEEDED ORALLY EVERY 6 HRS PRN NOT-TAKING EMGALITY (300 MG DOSE) 100 MG/ML SOLUTION PREFILLED SYRINGE 3 ML SUBCUTANEOUS EVERY MONTH NOT-TAKING DEXILANT 60 MG CAPSULE DELAYED RELEASE 1 CAPSULE ORALLY ONCE A DAY PRN NOT-TAKING MORPHINE SULFATE 15 MG TABLET 1 TABLET NEEDED ORALLY THREE TIMES DAILY NEEDED NOT-TAKING MYDAYIS 50 MG CAPSULE EXTENDED RELEASE 24 HOUR 1 CAPSULE IN THE MORNING ORALLY ONCE A DAY NOT-TAKING MS CONTIN 15 MG TABLET EXTENDED RELEASE 1 TABLET ORALLY EVERY 12 HRS MEDICATION LIST REVIEWED AND RECONCILED WITH THE PATIENT PAST MEDICAL HISTORY HYPERTENSION HERNIATED DISC CERVIACAL,THORACIC GOUT ADHD SLEEP APNEA GERD BRACHIAL PLEXUS DISORDER SPINAL STENOSIS INSOMNIA TACHY CARDIA HIATAL HERNIA GASTROPARESIS RADICULOPATHY DORSAL COLUMN STIMULATOR MIGRAINES ALLERGIES ADHESIVE ON ICY HOT PATCHES/LIDOCAINE: ANAPHYLAXIS PROVIGIL: UNKNOWN SOCIAL HISTORY GENERAL: TOBACCO USE ARE YOU A:NONSMOKER NEVER SMOKER LATEX QUESTIONNAIRE LATEX ALLERGY : HAVE YOU EVER DEVELOPED ANY TYPE OF REACTION AFTER HANDLING LATEX PRODUCTS SUCH RUBBER GLOVES, CONDOMS, DIAPHRAGMS, BALLOONS, SOCKS, OR UNDERWEAR?NO LATEX ALLERGY : HAVE YOU EVER DEVELOPED ANY TYPE OF REACTION DURING OR AFTER DENTAL APPOINTMENT, VAGINAL/RECTAL EXAMINATION, SURGICAL PROCEDURE, OR ANY OTHER EXPOSURE?NO LATEX RISK : HAVE YOU EVER HAD ANY DIFFICULTY BREATHING OR HIVES AFTER EATING OR HANDLING ANY FRUITS, OR VEGETABLES; SUCH KIWI, BANANAS, STONE FRUITS, OR CHESTNUTSNO LATEX RISK : DO YOU HAVE A PREVIOUS PERSONAL HISTORY OF MORE THAN NINE SURGERIES, SPINA BIFIDA, OR REPEATED CATHERIZATIONS? NO LATEX RISK : ARE YOU FREQUENTLY EXPOSED TO LATEX PRODUCTS IN YOUR OCCUPATION?NO DATE ASKED : 06/25/2020 ALCOHOL USE: YES, EVER RARELY. ALCOHOL SCREENING DID YOU HAVE A DRINK CONTAINING ALCOHOL IN THE PAST YEAR?YES HOW MANY DRINKS DID YOU HAVE ON A TYPICAL DAY WHEN YOU WERE DRINKING IN THE PAST YEAR?1 OR 2 (0 POINTS) HOW OFTEN DID YOU HAVE A DRINK CONTAINING ALCOHOL IN THE PAST YEAR?TWO TO FOUR TIMES A MONTH (2 POINTS) POINTS2 INTERPRETATIONNEGATIVE RECREATIONAL DRUG USE DRUG USE?NO PT VERBALIZES NEVER ABUSED PATIENT DENIES ABUSE OR MISSUSED OF ANY MEDICATION DENIES 07/31/19 CAFFEINE CAFFEINE USE?YES OCCASIONAL CHEONDOISM [id number] CONFUCIANIST LANGUAGE LANGUAGES SPOKEN:MALTESE EDUCATION LEVEL OF EDUCATION:NOT FINISHED COLLEGE LEARNING BARRIERS / SPECIAL NEEDS CHANGE FROM LAST VISIT?NO BARRIERS TO LEARNING?NO HEARING IMPAIRED?NO VISION IMPAIRED?YES :CORRECTIVE LENSES COGNITIVELY IMPAIRED?NO READINESS TO LEARN?YES LEARNING PREFERENCES?NO LEARNING CAPABILITIES PRESENT?YES EMOTIONAL BARRIERS?NO ADHD SPECIAL DEVICES?YES CPAP RESIDENT ASSISTANT NEEDED?NO DOMESTIC VIOLENCE DO YOU FEEL SAFE IN YOUR ENVIRONMENT?YES 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 EXERCISE: WALKS, ACTIVE LIFESTYLE. MARITAL STATUS: . OTHERS AT HOME: SPOUSE, AND STEP SONS. - PFS REFERRAL NEEDED?NO CLERGY REFERRAL NEEDED?NO PUBLIC HEALTH REFERRAL NEEDED?NO HAS THE PATIENT BEEN EDUCATED REGARDING HIS/HER PLAN OF CARE?YES HAS THE PATIENT BEEN EDUCATED REGARDING PAIN, THE RISK FOR PAIN, THE IMPORTANCE OF EFFECTIVE PAIN MANAGEMENT, AND THE PAIN ASSESSMENT PROCESS?YES ADVANCE DIRECTIVE ADVANCE DIRECTIVE DISCUSSED WITH PATIENT:YES HILARY IS HEALTH CARE AGENT [phone] REVIEW OF SYSTEMS CONSTITUTIONAL: ANY RECENT FEVER NO . CHILLS NO . WEIGHT CHANGE OF UNKNOWN REASONS NO . GASTROENTEROLOGY: NEW UNEXPLAINABLE CHANGES IN BOWEL CONTROL NO . CONSTIPATION NO . GENITOURINARY: ANY NEW CHANGE IN BLADDER CONTROL? NO . NEUROLOGY: NEW ONSET DIZZINESS OR NEUROLOGICAL CHANGES NOT MENTIONED NO . NEW NUMBNESS OR PAIN PATTERNS NOT MENTIONED AND PERTINENT TO TODAY'S VISIT NO . CARDIOLOGY: NEW CHEST PRESSURE NO . PATIENT DENIES NO . RESPIRATORY: UNEXPLAINABLE COUGH NO . NEW SHORTNESS OF BREATH NO . VITAL SIGNS WT 246.6 LBS, HT 72 IN, BMI 33.44 INDEX, BP 114/66 MM HG, HR 72 /MIN, RR 18 /MIN, TEMP 97.2 F, OXYGEN SAT % 100%, SAFE IN ENV? (Y/N) YES, NA INITIALS OH 08:42T.BRENNON IBANEZ. EXAMINATION GENERAL EXAMINATION: GENERALNO ACUTE DISTRESS, WELL NOURISHED AND HYDRATED. PSYCHAPPROPRIATE MOOD AND AFFECT . LUNGS:CLEAR TO AUSCULTATION BILATERALLY, NO WHEEZES, RHONCHI, RALES. HEART:NO MURMURS, REGULAR RATE AND RHYTHM. THORACIC SPINE:TENDERNESS WITH PALPATION OVER THORACIC MID AND LOWER PARASPINALS LEFT GREATER THAN RIGHT. PAIN IS AGGRAVATED IN THIS REGION WITH RANGE OF JOINT MOTION OF THE SPINE. . DIAGNOSTIC TESTS REVIEWEDCT OF THORACIC AND LUMBAR SPINE 11/2019 . ASSESSMENTS MYALGIA, OTHER SITE - M79.18 (PRIMARY) TREATMENT MYALGIA, OTHER SITE NOTES: TRIGGER POINT INJECTIONS BILATERAL THORACIC PRINTED AND REVIEWED PRE PROCEDURE TEACHING WITH PATIENT ASHTYN IBANEZ. PROCEDURE CODES FA211 ESTABILISHED PATIENT [facility] CHARGE DISPOSITION & COMMUNICATION FOLLOW UP POST PROCEDURE (REASON: TRIGGER POINT INJECTIONS BILATERAL THORACIC) ELECTRONICALLY SIGNED BY MIKEL OLIVA ON 06/25/2020 AT 01:56 PM EDT DISCLAIMER : THIS IS A VISIT SUMMARY EXTRACTED FROM THE [employer] CHART. IT IS NOT A COPY OF THE [employer] PROGRESS NOTE. BIANCA
== END ==
LOC: M PAIN 08:30
PROVIDERS: ATTEND Nurse Practitioner Family
DX: M79.18 Myalgia, other site (principal); G47.30 Sleep apnea, unspecified; G47.00 Insomnia, unspecified; G43.909 Migraine, unspecified, not intractable, without status migrainosus; Z96.89 Presence of other specified functional implants; Z86.59 Personal history of other mental and behavioral disorders; Z88.4 Allergy status to anesthetic agent; Z88.8 Allergy status to other drugs, medicaments and biological substances; Z91.09 Other allergy status, other than to drugs and biological substances; Z79.891 Long term (current) use of opiate analgesic; Z79.899 Other long term (current) drug therapy

== ENCOUNTER → 2020-07-09 | Outpatient (CLI) | payer OTHER | LOC: M LABSMTC 11:14 | PROVIDERS: ATTEND Anesthesiology | DX: Z01.812 Encounter for preprocedural laboratory examination (principal); Z20.828 Contact with and (suspected) exposure to other viral communicable diseases ==

== ENCOUNTER → 2020-07-14 | Outpatient (CLI) | payer OTHER ==
[~2020-07-14] MED LIST changes: +BUPIVACAINE HCL 0.25% 10ML VIAL As Ordered ONE; +BUPIVACAINE HCL 0.25% 30ML VIAL As Ordered ONE; +TRIAMCINOLONE ACETONIDE SUSP 40 MG/ML VIAL (J3301) As Ordered ONE
--- NOTE | 2020-07-16 01:57 | ECWPNPC ---
PATIENT NAME: CHUNG MAYERS : 1985 GENDER: MALE VISIT DATE: 07/14/2020 DISCHARGE DATE: 07/14/20 1240 VISIT LOCKED DATE TIME: PHYSICIAN: JAVIER SOTELO MD RESOURCE: JAVIER SOTELO MD REASON FOR APPOINTMENT 1. TRIGGER POINT INJECTIONS BILATERAL THORACIC HISTORY OF PRESENT ILLNESS GENERAL: -. -. FALL RISK SCREENING: SCREENING : NO FALLS REPORTED IN THE LAST YEAR. PAIN SCREENING: PATIENT HAS A COMPLAINT OF ACUTE OR CHRONIC PAIN :YES LOCATION OF PAIN:NECK, UPPER BACK, MID BACK, LOW BACK INTENSITY OF PAIN (SCALE OF 1 TO 10):4 2-9/10 WHAT DOES YOUR PAIN FEEL LIKE:ACHING, OTHER DULL, VARIES IN INTENSITY AND SEVERITY. DURATION:CONTINOUS, CONSTANT, ALL DAY, AWAKENS FROM SLEEP PAIN IS INCREASED BY:ACTIVITIES, PROLONGED STANDING PAIN IS DECREASED BY:USE OF PAIN MEDICATIONS, OTHERS HEAT PLAN/GOALS/TREATMENT/INTERVENTION/FOLLOW UP:SEE PLAN NURSING NOTE: -. PAIN CENTER INTAKE QUESTIONS: DO YOU HAVE A HISTORY OF MRSA? :NO DO YOU TAKE A BLOOD THINNERS? :NO DO YOU HAVE ANY BLEEDING DISORDERS? :NO ANY NEW NUMBNESS OR WEAKNESS IN YOUR LEGS OR ARMS? :NO ANY PACEMAKER,DEFIBRILLATOR, OR DORSAL COLUMN STIMULATOR? :YES C1-C2 DORSAL COLUMM STIMULATOR DO YOU HAVE ANY RASHES OR OPEN SORES? :NO ARE YOU ALLERGIC TO IV DYE? :NO ARE YOU DIABETIC? :NO ANY NEW PROBLEMS WITH YOUR MEDICATIONS? :NO HAVE YOU RECEIVED A VACCINE IN THE PAST 30 DAYS? :NO DO YOU PLAN TO RECEIVE A VACCINE IN THE NEXT 21 DAYS? :NO DO YOU TAKE ANY IMMUNOSUPPRESSIVE MEDICATIONS? :NO ANY HISTORY OF SEIZURES? :NO ANY HISTORY OF CARDIAC ISSUES OR EVENTS? :YES INCREASED HR. DO YOU HAVE ANY KIDNEY OR LIVER DISEASE? :NO DO YOU HAVE SLEEP APNEA? :YES DO YOU WEAR A CPAP?YES ANY RECENT HEAD INJURY? :NO DO YOU HAVE ANY NEW INFECTIONS? :NO IS THERE A CHANCE YOU COULD BE ? :NO ARE YOU BREAST FEEDING? :NO WHEN DID YOU LAST EAT? : 07/13 1930 WHEN DID YOU LAST DRINK? : 07/14 0900 SIP WITH MEDS WHAT DID YOU LAST DRINK? : WATER NAME OF PERSON DRIVING YOU HOME? : (HILARY) PAST MEDICAL HISTORY HYPERTENSION HERNIATED DISC CERVIACAL,THORACIC GOUT ADHD SLEEP APNEA GERD BRACHIAL PLEXUS DISORDER SPINAL STENOSIS INSOMNIA TACHY CARDIA HIATAL HERNIA GASTROPARESIS RADICULOPATHY DORSAL COLUMN STIMULATOR MIGRAINES ALLERGIES ADHESIVE ON ICY HOT PATCHES/LIDOCAINE: ANAPHYLAXIS - ALLERGY PROVIGIL: UNKNOWN SOCIAL HISTORY GENERAL: TOBACCO USE ARE YOU A:NONSMOKER NEVER SMOKER VAPORNO E-CIGARETTENO LATEX QUESTIONNAIRE LATEX ALLERGY : HAVE YOU EVER DEVELOPED ANY TYPE OF REACTION AFTER HANDLING LATEX PRODUCTS SUCH RUBBER GLOVES, CONDOMS, DIAPHRAGMS, BALLOONS, SOCKS, OR UNDERWEAR?NO LATEX ALLERGY : HAVE YOU EVER DEVELOPED ANY TYPE OF REACTION DURING OR AFTER DENTAL APPOINTMENT, VAGINAL/RECTAL EXAMINATION, SURGICAL PROCEDURE, OR ANY OTHER EXPOSURE?NO LATEX RISK : HAVE YOU EVER HAD ANY DIFFICULTY BREATHING OR HIVES AFTER EATING OR HANDLING ANY FRUITS, OR VEGETABLES; SUCH KIWI, BANANAS, STONE FRUITS, OR CHESTNUTSNO LATEX RISK : DO YOU HAVE A PREVIOUS PERSONAL HISTORY OF MORE THAN NINE SURGERIES, SPINA BIFIDA, OR REPEATED CATHERIZATIONS? NO LATEX RISK : ARE YOU FREQUENTLY EXPOSED TO LATEX PRODUCTS IN YOUR OCCUPATION?NO DATE ASKED : 07/11/2020 ALCOHOL USE: YES, EVER RARELY. ALCOHOL SCREENING DID YOU HAVE A DRINK CONTAINING ALCOHOL IN THE PAST YEAR?YES HOW MANY DRINKS DID YOU HAVE ON A TYPICAL DAY WHEN YOU WERE DRINKING IN THE PAST YEAR?1 OR 2 (0 POINTS) HOW OFTEN DID YOU HAVE A DRINK CONTAINING ALCOHOL IN THE PAST YEAR?TWO TO FOUR TIMES A MONTH (2 POINTS) POINTS2 INTERPRETATIONNEGATIVE RECREATIONAL DRUG USE DRUG USE?NO PT VERBALIZES NEVER ABUSED PATIENT DENIES ABUSE OR MISSUSED OF ANY MEDICATION DENIES 07/31/19 CAFFEINE CAFFEINE USE?YES OCCASIONAL JEWISH [id number] LATTER DAY LANGUAGE LANGUAGES SPOKEN:MONGOLIAN EDUCATION LEVEL OF EDUCATION:NOT FINISHED COLLEGE LEARNING BARRIERS / SPECIAL NEEDS CHANGE FROM LAST VISIT?NO BARRIERS TO LEARNING?NO HEARING IMPAIRED?NO VISION IMPAIRED?YES COGNITIVELY IMPAIRED?NO :CORRECTIVE LENSES READINESS TO LEARN?YES LEARNING PREFERENCES?NO LEARNING CAPABILITIES PRESENT?YES EMOTIONAL BARRIERS?NO ADHD SPECIAL DEVICES?YES CPAP LANDSCAPING SUPERVISOR NEEDED?NO DOMESTIC VIOLENCE DO YOU FEEL SAFE IN YOUR ENVIRONMENT?YES 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 DIET: REGULAR. EXERCISE: WALKS, ACTIVE LIFESTYLE. MARITAL STATUS: . OTHERS AT HOME: SPOUSE, AND STEP SONS. - PFS REFERRAL NEEDED?NO CLERGY REFERRAL NEEDED?NO PUBLIC HEALTH REFERRAL NEEDED?NO HAS THE PATIENT BEEN EDUCATED REGARDING HIS/HER PLAN OF CARE?YES HAS THE PATIENT BEEN EDUCATED REGARDING PAIN, THE RISK FOR PAIN, THE IMPORTANCE OF EFFECTIVE PAIN MANAGEMENT, AND THE PAIN ASSESSMENT PROCESS?YES ADVANCE DIRECTIVE ADVANCE DIRECTIVE DISCUSSED WITH PATIENT:YES HILARY IS HEALTH CARE AGENT [phone] VITAL SIGNS WT 243.6 LBS, HT 72 IN, BMI 33.03 INDEX, BP 118/68 MM HG, HR 82 /MIN, RR 18 /MIN, TEMP 96.0 F, OXYGEN SAT % 97%, SAFE IN ENV? (Y/N) YES, NA INITIALS AW 1140, REVIEWED BY: OLIVIA ALAS. EXAMINATION GENERAL: A HISTORY AND PHYSICAL EXAM ON THE PATIENT WAS DONE ON 06/25/2020 (DATE OF ORIGINAL ASSESSMENT) IN PREPARATION OF SURGERY/PROCEDURE. I HAVE NOW REASSESSED THIS PATIENT'S HEALTH STATUS AND PERFORMED AN UPDATED EXAM TODAY. ALL CHANGES IN THE PATIENT'S HISTORY, PHYSICAL EXAM, PRE-EXISTING CONDITONS, AND INDICATIONS/CONTRAINDICATIONS TO THE PLANNED PROCEDURE AND ANESTHESIA ARE DOCUMENTED AND EVALUATED BELOW. I ATTEST TO THE ADEQUACY AND APPROPRIATENESS OF MY ASSESSMENT, AND CONFIRM THE NECESSITY FOR THE PLANNED PROCEDURE. THE PATIENT IS ALERT, ORIENTED TIMES THREE AND COOPERATIVE. LUNGS ARE CLEAR TO AUSCULTATION. HEART SHOWS REGULAR RHYTHM, NO MURMURS AND NO GALLOPS. ASSESSMENTS MYALGIA - M79.10 (PRIMARY) TREATMENT MYALGIA COMPLETION OF PROCEDURAL VISIT WHEN MEETS CRITERIA PROCEDURES PAIN NURSING RECORD PROCEDURE IN ROOM 1130, PHYSICIAN IN ROOM 1220, START 1222, FINISH 1225, PHYSICIAN OUT OF ROOM 1226, OUT OF ROOM 1238, ECG N/A, PATIENT SHIELDED N/A, SAFETY STRAP N/A, PREP ALCOHOL DR. SOTELO, DRESSING TEGADERM Lucia MOSQUEDA RN LOC: 1. ALERT, ORIENTED RESP: 1. REGULAR, NO DYSPNEA COLOR: 1. PINK SKIN: 1. WARM, DRY POSITION: 5. SITTING VITALS: JONATHAN MOSQUEDA 07/14/2020 12:30:37 PM > 106/59 HR 78 16 95% R/A D/C V/S COMPLETION OF PROCEDURE APPOINTMENT: POST PAIN 3, DRESSING SITE DRY AND INTACT, IV N/A, GAIT STEADY, TEACHING COMPLETED, PATIENT ACKNOWLEDGES UNDERSTANDING YES, PROCEDURE APPOINTMENT COMPLETED AT 1238 PN TRIGGER POINT INJECTION WITH STEROIDS PRE PROCEDURE DIAGNOSIS 1. MYALGIA 2. PAIN AT BILATERAL THORACIC AREA POST PROCEDURE DIAGNOSIS 1. MYALGIA 2. PAIN AT BILATERAL THORACIC AREA PROCEDURE TRIGGER POINT INJECTION AT BILATERAL THORACIC AREA SURGEON DR. JAVIER SOTELO HELP DESK ASSISTANT NONE ANESTHESIA LOCAL PRE PROCEDURE NOTE THE PATIENT HAS A HISTORY OF CHRONIC PAIN AT THE RIGHT AND LEFT THROACIC AREA. I EVALUATED THE PATIENT AND REVIEWED THE CHART. THERE IS EVIDENCE OF BANDS OF TISSUE WITH RESTRICTION OF MOVEMENT AND PRESENCE OF TRIGGER POINT AT THE RIGHT AND LEFT THORACIC AREA. I WENT OVER THE RISKS, ALTERNATIVES, AND BENEFITS ASSOCIATED WITH THIS PROCEDURE. THE PATIENT WOULD LIKE TO PROCEED AND GIVE CONSENT TO PERFORMED THE PROCEDURE. THE PATIENT DENIES UNEXPLAINABLE WEIGHT LOSS, FEVER, CHILLS, OR NEW CHANGES IN URINARY OR BOWEL CONTROL. THE PATIENT IS COVID-19 NEGATIVE DESCRIPTION OF PROCEDURE THE PATIENT WAS BROUGHT TO THE PROCEDURE ROOM AND PLACED IN THE SITTING POSITION. THE AREA WAS CLEANED WITH ALCOHOL. THE PROCEDURE WAS DONE USING ASEPTIC STERILE TECHNIQUE. A TIMEOUT WAS PERFORMED WHERE THE CONSENTED SITE WAS VERIFIED WITH EVERYONE IN THE ROOM. USING A 25-GAUGE NEEDLE, TRIGGER POINTS WERE INJECTED AT THE RIGHT AND LEFT THORACIC AREA WITH A TOTAL OF 40 ML OF BUPIVACAINE 0.25% AND KENALOG 40 MG. THE MEDICATIONS WERE VERIFIED WITH THE NURSE. THERE WAS NO EVIDENCE OF BLOOD OR PARESTHESIA DURING THE PROCEDURE. THE PATIENT WAS SENT TO THE RECOVERY ROOM. THE PATIENT WAS MOVING THE EXTREMITIES AND DOING WELL. THERE WERE NO COMPLICATIONS DURING THE PROCEDURE. ESTIMATED BLOOD LOSS WAS LESS THAN 5 ML POST PROCEDURE NOTE I AM LOOKING FOR LONG LASTING PAIN RELIEF. DEPENDING ON THE RESULTS, CONSIDER THORACIC FACET BLOCKS. THE PROCEDURE DONE WAS DISCUSSED WITH THE PATIENT. THE PATIENT WILL BE SEEN IN A FOLLOW UP IN THE NEXT FEW WEEKS. INSTRUCTIONS WERE GIVEN, QUESTIONS WERE ANSWERED, AND THE PATIENT EXPRESSED UNDERSTANDING AND AGREES WITH THE PLAN. I, MANISH TOPETE, DOCUMENTED THE ABOVE INFORMATION ACTING A SCRIBE FOR DR. SOTELO. I HAVE REVIEWED THE ABOVE DOCUMENT, WRITTEN BY MANISH TOPETE, NUCLEAR PLANT OPERATOR, AND I VERIFY THAT IT IS ACCURATE PROCEDURE CODES 75424 INJ TRIGGER POINT 03/22 [employer] [employer] DISPOSITION & COMMUNICATION FOLLOW UP FOLLOW UP WITH CLERICAL ORDER FILLER (REASON: POST TRIGGER POINT INJECTIONS BILATERAL THORAIC ) ELECTRONICALLY SIGNED BY JAVIER SOTELO MD, MD ON 07/15/2020 AT 01:10 PM EDT DISCLAIMER : THIS IS A VISIT SUMMARY EXTRACTED FROM THE [employer] CHART. IT IS NOT A COPY OF THE [employer] PROGRESS NOTE. MTDD
== END ==
LOC: M PAIN 11:20
PROVIDERS: ATTEND Anesthesiology
DX: M79.18 Myalgia, other site (principal); G47.30 Sleep apnea, unspecified; G47.00 Insomnia, unspecified; M48.00 Spinal stenosis, site unspecified; G43.909 Migraine, unspecified, not intractable, without status migrainosus; Z96.89 Presence of other specified functional implants; Z88.8 Allergy status to other drugs, medicaments and biological substances; Z91.09 Other allergy status, other than to drugs and biological substances
CPT/HCPCS: 20552; J3301

== ENCOUNTER → 2020-08-20 | Outpatient (CLI) | payer OTHER ==
[~2020-08-20] MED LIST changes: -BUPIVACAINE HCL 0.25% 10ML VIAL As Ordered ONE; -BUPIVACAINE HCL 0.25% 30ML VIAL As Ordered ONE; -TRIAMCINOLONE ACETONIDE SUSP 40 MG/ML VIAL (J3301) As Ordered ONE
--- NOTE | 2020-08-22 01:38 | ECWPNPC ---
PATIENT NAME: CHUNG MAYERS : 1985 GENDER: MALE VISIT DATE: 08/20/2020 DISCHARGE DATE: 08/20/20 1457 VISIT LOCKED DATE TIME: PHYSICIAN: DIDIER HARRISON RESOURCE: DIDIER HARRISON REASON FOR APPOINTMENT 1. POST TRIGGER POINT INJECTIONS BILATERAL THORACIC HISTORY OF PRESENT ILLNESS GENERAL: HERE FOR POST PROCEDURE F/U.HAD TPI BILATERAL THORACIC ON 07/14/20.CONTINUES TO BENEFIT FROM THEM TODAY.CHIEF COMPLAINT IS LOW BACK PAIN. -. FALL RISK SCREENING: SCREENING : NO FALLS REPORTED IN THE LAST YEAR. PAIN SCREENING: PATIENT HAS A COMPLAINT OF ACUTE OR CHRONIC PAIN :YES LOCATION OF PAIN:MID BACK, LOW BACK INTENSITY OF PAIN (SCALE OF 1 TO 10):7 WHAT DOES YOUR PAIN FEEL LIKE:SORE, SHOOTING DURATION:CONTINOUS, CONSTANT, ALL DAY PAIN IS INCREASED BY:ACTIVITIES, PROLONGED STANDING PAIN IS DECREASED BY:USE OF PAIN MEDICATIONS HEAT NURSING NOTE: -. PAIN CENTER INTAKE QUESTIONS: DO YOU HAVE A HISTORY OF MRSA? :NO DO YOU TAKE A BLOOD THINNERS? :NO DO YOU HAVE ANY BLEEDING DISORDERS? :NO ANY NEW NUMBNESS OR WEAKNESS IN YOUR LEGS OR ARMS? :NO ANY PACEMAKER,DEFIBRILLATOR, OR DORSAL COLUMN STIMULATOR? :YES C1-C2 DORSAL COLUMM STIMULATOR DO YOU HAVE ANY RASHES OR OPEN SORES? :YES POSTERIOR HEAD SORE DUE TO CPAP MASK ARE YOU ALLERGIC TO IV DYE? :NO ARE YOU DIABETIC? :NO ANY NEW PROBLEMS WITH YOUR MEDICATIONS? :NO HAVE YOU RECEIVED A VACCINE IN THE PAST 30 DAYS? :NO DO YOU PLAN TO RECEIVE A VACCINE IN THE NEXT 21 DAYS? :NO DO YOU NEED ANY PRESCRIPTION? :NO DO YOU TAKE ANY IMMUNOSUPPRESSIVE MEDICATIONS? :NO IS THERE A CHANCE YOU COULD BE ? :NO ARE YOU BREAST FEEDING? :NO CURRENT MEDICATIONS TAKING KETOROLAC TROMETHAMINE 30 MG/ML SOLUTION 0.5 ML NEEDED INJECTION EVERY 6 HRS TAKING TELMISARTAN 80 MG TABLET 1 TABLET ORALLY TWICE DAILY TAKING CARVEDILOL 12.5 MG TABLET 1 TABLET ORALLY TWICE A DAY TAKING ZOFRAN 4 MG TABLET 1 TABLET ORALLY EVERY 6 HOURS NEEDED TAKING ALLOPURINOL 300 MG TABLET 1 TABLET ORALLY ONCE A DAY TAKING ZANAFLEX 4 MG TABLET 1 TABLET NEEDED ORALLY THREE TIMES A DAY TAKING MAY USE BACLOFEN 10 MG ORALLY THREE TIMES DAILY NEEDED TAKING ADDERALL 10 MG TABLET 1 TABLET ORALLY EVERY AFTERNOON NEEDED TAKING BELSOMRA 20 MG TABLET 1 TABLET AT BEDTIME NEEDED ORALLY ONCE A DAY TAKING ZOMIG 5 MG TABLET 1 TABLET NEEDED ORALLY ONCE A DAY, CAN REPEAT AFTER TWO HOURS TAKING TOPIRAMATE 25 MG TABLET 1 TABLET ORALLY TWICE A DAY TAKING VITAMIN D (ERGOCALCIFEROL) 1.25 MG ([id number] UT) CAPSULE 1 CAPSULE ORALLY EVERY 2 WEEKS TAKING ROSUVASTATIN CALCIUM 40 MG TABLET 1 TABLET ORALLY ONCE A DAY TAKING FENTANYL 75 MCG/HR PATCH 72 HOUR 1 PATCH TO SKIN TRANSDERMAL EVERY 72 HOURS TAKING ADZENYS XR-ODT 6.3 MG TABLET EXTENDED RELEASE DISINTEGRATING 1 TABLET IN THE MORNING ORALLY ONCE A DAY TAKING HYDROMORPHONE HCL 8 MG TABLET DIRECTED ORALLY 3 TIMES A DAY NEEDED TAKING FIORICET 50-325-40 MG TABLET 1 TABLET NEEDED ORALLY EVERY 4 HRS, NOTES: UNSURE OF DOSE TAKING EMGALITY 120 MG/ML SOLUTION AUTO-INJECTOR DIRECTED SUBCUTANEOUS EVERY MONTH NOT-TAKING OXYMORPHONE HCL 5 MG TABLET 1 TABLET 1 HOUR BEFORE OR 2 HOURS AFTER EATING NEEDED ORALLY EVERY 6 HRS PRN NOT-TAKING EMGALITY (300 MG DOSE) 100 MG/ML SOLUTION PREFILLED SYRINGE 3 ML SUBCUTANEOUS EVERY MONTH NOT-TAKING DEXILANT 60 MG CAPSULE DELAYED RELEASE 1 CAPSULE ORALLY ONCE A DAY PRN NOT-TAKING MORPHINE SULFATE 15 MG TABLET 1 TABLET NEEDED ORALLY THREE TIMES DAILY NEEDED NOT-TAKING MYDAYIS 50 MG CAPSULE EXTENDED RELEASE 24 HOUR 1 CAPSULE IN THE MORNING ORALLY ONCE A DAY NOT-TAKING MS CONTIN 15 MG TABLET EXTENDED RELEASE 1 TABLET ORALLY EVERY 12 HRS MEDICATION LIST REVIEWED AND RECONCILED WITH THE PATIENT PAST MEDICAL HISTORY HYPERTENSION HERNIATED DISC CERVIACAL,THORACIC GOUT ADHD SLEEP APNEA GERD BRACHIAL PLEXUS DISORDER SPINAL STENOSIS INSOMNIA TACHY CARDIA HIATAL HERNIA GASTROPARESIS RADICULOPATHY DORSAL COLUMN STIMULATOR MIGRAINES ALLERGIES ADHESIVE ON ICY HOT PATCHES/LIDOCAINE: ANAPHYLAXIS - ALLERGY PROVIGIL: UNKNOWN SOCIAL HISTORY GENERAL: TOBACCO USE ARE YOU A:NONSMOKER NEVER SMOKER VAPORNO E-CIGARETTENO LATEX QUESTIONNAIRE LATEX ALLERGY : HAVE YOU EVER DEVELOPED ANY TYPE OF REACTION AFTER HANDLING LATEX PRODUCTS SUCH RUBBER GLOVES, CONDOMS, DIAPHRAGMS, BALLOONS, SOCKS, OR UNDERWEAR?NO LATEX ALLERGY : HAVE YOU EVER DEVELOPED ANY TYPE OF REACTION DURING OR AFTER DENTAL APPOINTMENT, VAGINAL/RECTAL EXAMINATION, SURGICAL PROCEDURE, OR ANY OTHER EXPOSURE?NO LATEX RISK : HAVE YOU EVER HAD ANY DIFFICULTY BREATHING OR HIVES AFTER EATING OR HANDLING ANY FRUITS, OR VEGETABLES; SUCH KIWI, BANANAS, STONE FRUITS, OR CHESTNUTSNO LATEX RISK : DO YOU HAVE A PREVIOUS PERSONAL HISTORY OF MORE THAN NINE SURGERIES, SPINA BIFIDA, OR REPEATED CATHERIZATIONS? NO LATEX RISK : ARE YOU FREQUENTLY EXPOSED TO LATEX PRODUCTS IN YOUR OCCUPATION?NO DATE ASKED : 08/20/2020 ALCOHOL USE: YES, EVER RARELY. ALCOHOL SCREENING DID YOU HAVE A DRINK CONTAINING ALCOHOL IN THE PAST YEAR?YES HOW MANY DRINKS DID YOU HAVE ON A TYPICAL DAY WHEN YOU WERE DRINKING IN THE PAST YEAR?1 OR 2 (0 POINTS) HOW OFTEN DID YOU HAVE A DRINK CONTAINING ALCOHOL IN THE PAST YEAR?TWO TO FOUR TIMES A MONTH (2 POINTS) POINTS2 INTERPRETATIONNEGATIVE RECREATIONAL DRUG USE DRUG USE?NO PT VERBALIZES NEVER ABUSED PATIENT DENIES ABUSE OR MISSUSED OF ANY MEDICATION DENIES 07/31/19 CAFFEINE CAFFEINE USE?YES OCCASIONAL CHRISTIANITY [id number] SABIANIST LANGUAGE LANGUAGES SPOKEN:ZAMBIAN EDUCATION LEVEL OF EDUCATION:NOT FINISHED COLLEGE LEARNING BARRIERS / SPECIAL NEEDS CHANGE FROM LAST VISIT?NO BARRIERS TO LEARNING?NO HEARING IMPAIRED?NO VISION IMPAIRED?YES :CORRECTIVE LENSES COGNITIVELY IMPAIRED?NO READINESS TO LEARN?YES LEARNING PREFERENCES?NO LEARNING CAPABILITIES PRESENT?YES EMOTIONAL BARRIERS?NO ADHD SPECIAL DEVICES?YES CPAP SVP [employer] SALES FOOD & COOKING NEEDED?NO DOMESTIC VIOLENCE DO YOU FEEL SAFE IN YOUR ENVIRONMENT?YES 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 DIET: REGULAR. EXERCISE: WALKS, ACTIVE LIFESTYLE. MARITAL STATUS: . OTHERS AT HOME: SPOUSE, AND STEP SONS. - PFS REFERRAL NEEDED?NO CLERGY REFERRAL NEEDED?NO PUBLIC HEALTH REFERRAL NEEDED?NO HAS THE PATIENT BEEN EDUCATED REGARDING HIS/HER PLAN OF CARE?YES HAS THE PATIENT BEEN EDUCATED REGARDING PAIN, THE RISK FOR PAIN, THE IMPORTANCE OF EFFECTIVE PAIN MANAGEMENT, AND THE PAIN ASSESSMENT PROCESS?YES ADVANCE DIRECTIVE ADVANCE DIRECTIVE DISCUSSED WITH PATIENT:YES HILARY IS HEALTH CARE AGENT [phone] REVIEW OF SYSTEMS CONSTITUTIONAL: ANY RECENT FEVER NO . CHILLS NO . WEIGHT CHANGE OF UNKNOWN REASONS NO . GASTROENTEROLOGY: NEW UNEXPLAINABLE CHANGES IN BOWEL CONTROL NO . CONSTIPATION NO . GENITOURINARY: ANY NEW CHANGE IN BLADDER CONTROL? NO . NEUROLOGY: NEW ONSET DIZZINESS OR NEUROLOGICAL CHANGES NOT MENTIONED NO . NEW NUMBNESS OR PAIN PATTERNS NOT MENTIONED AND PERTINENT TO TODAY'S VISIT NO . CARDIOLOGY: NEW CHEST PRESSURE NO . PATIENT DENIES NO . RESPIRATORY: UNEXPLAINABLE COUGH NO . NEW SHORTNESS OF BREATH NO . VITAL SIGNS WT 246 LBS, HT 72 IN, BMI 33.36 INDEX, BP 111/64 MM HG, HR 93 /MIN, RR 18 /MIN, TEMP 97.6 F, OXYGEN SAT % 98%, SAFE IN ENV? (Y/N) YES, NA INITIALS NV 14:29ASHTYN IBANEZ. EXAMINATION GENERAL EXAMINATION: GENERAL AWAKE,ALERT ,PLEAASANT . PSYCH AFFECT NORMAL . LUNGS: LUNG LOCK ARE CLEAR TO AUSCULTATION BILATERALLY. GOOD MOVEMENT OF AIR . HEART: S1, S2 IN A REGULAR RATE AND RHYTHM. NO SIGNIFICANT MURMURS, RUBS OR GALLOPS NOTED . LUMBAR: PALPATION: + FOR PAIN OVER L/S SPINE. + FOR PAIN OVER L/S PARASPINALS .SPECIFIC POINT TENDERNESS OVER BILAT L4/5-L5/S1 LUMBAR FACETS WITH FACET LOADING. NEUROLOGIC EXAM: NORMAL SENSATION LIGHT TOUCH BILAT. LOWER EXTREMITIES . ASSESSMENTS LUMBAR FACET ARTHROPATHY - M47.816 (PRIMARY) OTHER CHRONIC PAIN - G89.29 TREATMENT LUMBAR FACET ARTHROPATHY NOTES: RETURN TO CLINIC TO SEE DR. SOTELO FOR IV PRE-SEDATE APPOINTMENT AND SIGN CONSENT, BILATERAL THERAPEUTIC LUMBAR FACET BLOCK L4-5,L5-S1 WITH IV SEDATION REVIEWED PRE PROCEDURE INFORMATION, PATIENT VERBALIZED UNDERSTANDING ASHTYN IBANEZ. OTHER CHRONIC PAIN PAIN PROCEDURE LOGDATE OF PROCEDURE1PROCEDURE:TRIGGER POINT INJECTION BILATERAL THORACICAMOUNT OF PRE SEDATE0/0RESULT:CONTINUES TO BENEFIT FROM INJECTIONS TODAY DISPOSITION & COMMUNICATION FOLLOW UP PRESEDATE Nicole Batres (REASON: BILATERAL THERAPEUTIC LUMBAR FACET BLOCK L4-5,L5-S1 WITH IV SEDATION) ELECTRONICALLY SIGNED BY MIKEL OLIVA ON 08/21/2020 AT 03:41 PM EDT DISCLAIMER : THIS IS A VISIT SUMMARY EXTRACTED FROM THE [facility] CHART. IT IS NOT A COPY OF THE [facility] PROGRESS NOTE. BIANCA
== END ==
LOC: M PAIN 14:15
PROVIDERS: ATTEND Nurse Practitioner Family
DX: M47.816 Spondylosis without myelopathy or radiculopathy, lumbar region (principal); G89.29 Other chronic pain; G47.30 Sleep apnea, unspecified; G47.00 Insomnia, unspecified; G43.909 Migraine, unspecified, not intractable, without status migrainosus; Z96.89 Presence of other specified functional implants; Z86.59 Personal history of other mental and behavioral disorders; Z88.8 Allergy status to other drugs, medicaments and biological substances; Z91.09 Other allergy status, other than to drugs and biological substances; Z79.891 Long term (current) use of opiate analgesic; Z79.899 Other long term (current) drug therapy

== ENCOUNTER → 2021-09-03 | Outpatient (CLI) | payer OTHER | LOC: M RAD 09:05 | PROVIDERS: ATTEND Nurse Practitioner Family | DX: M51.16 Intervertebral disc disorders with radiculopathy, lumbar region (principal) ==

== ENCOUNTER → 2022-05-28 | Outpatient (CLI) | payer OTHER | LOC: M PLAIMG 13:05 | PROVIDERS: ATTEND Internal Medicine | DX: M51.34 Other intervertebral disc degeneration, thoracic region (principal); D18.09 Hemangioma of other sites; M47.814 Spondylosis without myelopathy or radiculopathy, thoracic region ==

== ENCOUNTER → 2023-08-24 | Outpatient (REF) | payer OTHER ==
[~2023-08-24] MED LIST changes: +LORA-1041; -LORA-674; -ROSU40TA4 PO; +ROSU40TA63 PO
[2023-08-24 18:59] LABS: Trichomonas vaginalis (AMP) NOT DETECTED (NEGATIVE)
[2023-08-24 19:23] LABS: GC DNA AMPLIFICATION NEGATIVE (NEGATIVE)
== END ==
LOC: M LAB REF 16:18
PROVIDERS: ATTEND Student in an Organized Health Care Education/Training Program
DX: R30.0 Dysuria (principal)

== ENCOUNTER → 2023-12-13 | Outpatient (CLI) | payer OTHER ==
[~2023-12-13] MED LIST changes: +E-Z-HD 98% w/w 340GM SUSP BTL As Ordered ONE; +E-Z-PAQUE 96% w/w SUSP 176GM BTL As Ordered ONE; -ROSU40TA63 PO; +ROSU40TA81 PO
== END ==
LOC: M RAD 08:17
PROVIDERS: ATTEND Physician Assistant
DX: R13.14 Dysphagia, pharyngoesophageal phase (principal); K44.9 Diaphragmatic hernia without obstruction or gangrene

== ENCOUNTER 2024-11-05 08:54 | Emergency (ER) | payer OTHER ==
[~2024-11-05] VITALS: Ht 188 cm; Wt 104.1 kg
[~2024-11-05 08:54] MED LIST changes: -E-Z-HD 98% w/w 340GM SUSP BTL As Ordered ONE; -E-Z-PAQUE 96% w/w SUSP 176GM BTL As Ordered ONE
[2024-11-05] MEDS ORDERED: EMGA120I (09:05)
[2024-11-05] MEDS ORDERED: TOPI-257 (09:05)
[2024-11-05] MEDS ORDERED: TIRZ12.53 (09:05)
[2024-11-05] MEDS ORDERED: [UNRECOGNIZED DRUG - CODE] (09:05)
[2024-11-05] MEDS ORDERED: FAMO40TA3 (09:05)
[2024-11-05] MEDS ORDERED: LOSA100T46 (09:06)
[2024-11-05] MEDS ORDERED: ACET-907 PO (09:06)
[2024-11-05 09:22] LABS: BASO # 0.1 10^3/uL (0.0-0.2); BASO % 0.9 % (0.0-1.0); EOS # 0.1 10^3/uL (0.0-0.5); EOS % 1.7 % (0.0-3.0); LYMPH # 1.8 10^3/uL (1.5-5.0); LYMPH % 31.8 % (24.0-44.0); MONO # 0.6 10^3/uL (0.0-0.8); MONO % 10.4 % (2.0-8.0); NEUTROPHILS # 3.2 10^3/uL (1.5-8.5); NEUTROPHILS % 55.0 % (36.0-66.0); PLATELET COUNT, AUTOMATED 252 10^3/uL (150-450)
[2024-11-05 09:59] LABS: CALCIUM LEVEL 8.6 MG/DL (8.5-10.1); CARBON DIOXIDE LEVEL 26.0 MMOL/L (20-31); CHLORIDE LEVEL 105.0 MMOL/L (98-107); CREATININE FOR GFR 1.07 MG/DL (0.70-1.30); GLOMERULAR FILTRATION RATE 90.0 (>60); POTASSIUM SERUM 4.0 MMOL/L (3.5-5.1); SODIUM LEVEL 141.0 MMOL/L (136-145)
[2024-11-05 10:51] LABS: KETONE, URINE AUTO RFX NEGATIVE (NEGATIVE); LEUKOCYTE ESTERASE UR AUTO RFX NEGATIVE (NEGATIVE); MUCUS, URINE RFX LARGE (NEGATIVE); NITRITE, URINE AUTO RFX NEGATIVE (NEGATIVE); RBC, URINE AUTO RFX 1 /HPF (0-3); SQUAM EPITHELIAL CELL UR AURFX 0 /HPF (0-6); WBC, URINE AUTO RFX 3 /HPF (0-3)
[2024-11-05] MEDS: MORPHINE 4 MG/ML 1 ML VIAL IV ONE (11:46)
[2024-11-05] MEDS ORDERED: [UNRECOGNIZED DRUG - CODE] IM (12:38)
[2024-11-05] MEDS ORDERED: MEDR4PAK PO (12:38)
[2024-11-05] MEDS ORDERED: 3ML25MIS IM (12:38)
[2024-11-05 12:49] VITALS: BP 100/60; TEMP 98; O2SAT 97
== END 2024-11-05 12:50 | disposition home or self-care (01) ==
LOC: M ED 08:54
DX: R10.9 Unspecified abdominal pain (principal); M54.6 Pain in thoracic spine; I10 Essential (primary) hypertension; G47.33 Obstructive sleep apnea (adult) (pediatric); E78.5 Hyperlipidemia, unspecified; Z87.442 Personal history of urinary calculi; Z88.8 Allergy status to other drugs, medicaments and biological substances; Z79.1 Long term (current) use of non-steroidal anti-inflammatories (NSAID); Z79.83 Long term (current) use of bisphosphonates; Z79.899 Other long term (current) drug therapy